=== PATIENT | female | born 1940 | race Caucasian/White ===

== ENCOUNTER → 2017-05-11 | Outpatient (CLI) | payer MEDICARE ==
--- NOTE | 2017-05-12 12:03 | ECHOF ---
Referral Reason:I10 Hypertension R42 Dizziness MEASUREMENTS -------- HEIGHT: 157.5 cm WEIGHT: 93.0 kg BP: 190/85 RVIDd: 2.6 cm (< 3.3) IVSd: 1.1 cm (0.6 - 1.1) LVIDd: 4.4 cm (3.9 - 5.3) LVPWd: 1.0 cm (0.6 - 1.1) IVSs: 1.6 cm LVIDs: 2.8 cm LVPWs: 1.6 cm LAESV Index (A-L): 26.95 ml/m Ao Diam: 2.8 cm (2.0 - 3.7) AV Cusp: 1.6 cm (1.5 - 2.6) LA Diam: 3.4 cm (2.7 - 3.8) MV EXCURSION: 9.957 mm (> 18.000) MV EF SLOPE: 16 mm/s (70 - 150) EPSS: 0.5 cm MV E Dayday: 0.71 m/s MV DecT: 383 ms MV A Dayday: 1.07 m/s MV E/A Ratio: 0.66 RAP: 5.00 mmHg RVSP: 10.82 mmHg FINDINGS -------- Sinus rhythm. This was a technically adequate study. The left ventricular size is normal. There is borderline concentric left ventricular hypertrophy. Overall left ventricular systolic function is normal with, an EF between 55 - 60 %. The right ventricle is normal in size and function. Normal LA size by volume 22+/-6 ml/m2. The right atrium is normal in size. Aortic valve is trileaflet and is mildly thickened. There is no evidence of aortic regurgitation. There is no evidence of aortic stenosis. The mitral valve leaflets are mildly thickened. There is trace to mild mitral regurgitation. Trace tricuspid regurgitation present. Right ventricular systolic pressure is normal at < 35 mmHg. There is no evidence of pulmonary hypertension. The pulmonic valve was not well visualized. The aortic root size is normal. Normal inferior vena cava with normal inspiratory collapse consistent with estimated right atrial pre ssure of 5 mmHg. The pericardium is normal. There is no pericardial effusion. CONCLUSIONS -------- 1. Sinus rhythm. 2. This was a technically adequate study. 3. The left ventricular size is normal. 4. There is borderline concentric left ventricular hypertrophy. 5. Overall left ventricular systolic function is normal with, an EF between 55 - 60 %. 6. Normal LA size by volume 22+/-6 ml/m2. 7. Aortic valve is trileaflet and is mildly thickened. 8. The mitral valve leaflets are mildly thickened. 9. There is trace to mild mitral regurgitation. 10. Trace tricuspid regurgitation present. 11. Right ventricular systolic pressure is normal at < 35 mmHg. 12. There is no evidence of pulmonary hypertension. 13. The pulmonic valve was not well visualized. 14. The aortic root size is normal. 15. There is no pericardial effusion. ENTERPRISE INFRASTRUCTURE ARCHITECT: Donavon Higuera RDCS
== END | disposition home or self-care (01) ==
LOC: RADECHMAIN 14:50
PROVIDERS: ATTEND Family Medicine
DX: I35.8 Other nonrheumatic aortic valve disorders (principal); I10 Essential (primary) hypertension
CPT/HCPCS: 93306

== ENCOUNTER 2024-11-14 16:54 | Observation (INO) | payer MEDICARE ==
--- NOTE | 2024-11-14 17:21 | ED ---
General Adult HPI - General Stated complaint: weakness Time Seen by Provider: 11/14/24 17:00 Source: patient, RN notes reviewed, old records reviewed - History of Present Illness Initial comments: This is an 84-year-old female who presents to the emergency department complaining of weakness. Patient states today she was standing and she slid down to the ground on 2 different occasions. When EMS got there she did not want to come to the hospital but she was unable to stand on her own because her legs were too weak. Patient denies any focal weakness. Patient denies any recent fever chills or cough. Patient states this been happening slowly over time and has talked to her doctor but nothing has been done. Patient denies any chest pain palpitations difficulty breathing or shortness of breath. Patient [place] any headache patient denies any abdominal pain patient denies nausea vomiting or diarrhea - Related Data Home Medications Medication Instructions Recorded Confirmed Aspirin [Adult Low Dose Aspirin EC] 81 mg PO DAILY 09/15/17 10/21/21 Glimepiride [Amaryl] 4 mg PO AC-SUPPER 09/15/17 10/21/21 Insulin Glargine,Hum.rec.anlog 24 units SQ HS 09/15/17 10/21/21 [Lantus Solostar Pen] allopurinoL [Zyloprim] 100 mg PO DAILY 09/15/17 10/21/21 amLODIPine BESYLATE/BENAZEPRIL 1 cap PO DAILY 09/15/17 10/21/21 [amLODIPine BESYLATE/BENAZEPRIL 10-20 MG] Cholecalciferol [Vitamin D3 (25 25 mcg PO DAILY 10/21/21 10/21/21 Mcg = 1000 Iu)] Insulin Aspart [NovoLOG Flexpen] See Protocol SQ AC-TID 10/21/21 10/21/21 Multivitamins, Thera [Multivitamin 1 tab PO DAILY 10/21/21 10/21/21 (formulary)] Nervite Tablet 1 tab PO MOTUTHFRSA 10/21/21 10/21/21 atenoloL [Tenormin] 50 mg PO BID 10/21/21 10/21/21 Previous Rx's Medication Instructions Recorded Apixaban [Eliquis] 5 mg PO BID #60 tab 10/27/21 Allergies Allergy/AdvReac Type Severity Reaction Status Date / Time Zerwjyo-ZZJ-ItS Reductase Allergy Rash/Hives Verified 11/14/24 17:46 Inhibitor [Mktgetb-Rmc-Qdm Reductase Inhibitor] codeine AdvReac Rash/Hives Verified 11/14/24 17:46 metformin AdvReac Abdominal Verified 11/14/24 17:46 Pain Sulfa (Sulfonamide AdvReac Rash/Hives Verified 11/14/24 17:46 Antibiotics) & Nausea Review of Systems ROS Statement: Those systems with pertinent positive or pertinent negative responses have been documented in the HPI. ROS Other: All systems not noted in ROS Statement are negative. Past Medical History Past Medical History: Cancer, Diabetes Mellitus, Hypertension Additional Past Medical History / Comment(s): Degeneration of intervebral disc, peripheral neuropathy. CA Right breat, obesity, [place] History of Any Multi-Drug Resistant Organisms: None Reported Past Surgical History: Hysterectomy Additional Past Surgical History / Comment(s): colonoscpy, cataract, Right brrease mastectomy. D&C Past Anesthesia/Blood Transfusion Reactions: No Reported Reaction Smoking Status: Never smoker Past Alcohol Use History: None Reported Past Drug Use History: None Reported - Past Family History Mother Family Medical History: Cancer, Hypertension Father Family Medical History: Coronary Artery Disease (CAD), Myocardial Infarction ([place]) Brother(s) Family Medical History: Coronary Artery Disease (CAD) General Exam - General Exam Comments Initial Comments: GENERAL: Patient is well-developed and well-nourished. Patient is nontoxic and well- hydrated and is in no acute distress. ENT: Neck is soft and supple. No significant lymphadenopathy is noted. Oropharynx is clear. Moist mucous membranes. Neck has full range of motion without eliciting any pain. EYES: The sclera were anicteric and conjunctiva were pink and moist. Extraocular movements were intact and pupils were equal round and reactive to light. Eyelids were unremarkable. PULMONARY: Unlabored respirations. Good breath sounds bilaterally. No audible rales rhonchi or wheezing was noted. CARDIOVASCULAR: There is a regular rate and rhythm without any murmurs gallops or rubs. ABDOMEN: Soft and nontender with normal bowel sounds. No palpable organomegaly was noted. There is no palpable pulsatile mass. SKIN: Skin is clear with no lesions or rashes and otherwise unremarkable. NEUROLOGIC: Patient is alert and oriented x3. Cranial nerves II through XII are grossly intact. Motor and sensory are also intact. Normal speech, volume and content. Symmetrical smile. MUSCULOSKELETAL: Normal extremities with adequate strength and full range of motion. No lower extremity swelling or edema. No calf tenderness. LYMPHATICS: No significant lymphadenopathy is noted PSYCHIATRIC: Normal psychiatric evaluation. Course Vital Signs 11/14/24 17:32 Temperature 98.0 F Pulse Rate 65 Respiratory 14 Rate Blood Pressure 139/57 O2 Sat by Pulse 97 Oximetry Medical Decision Making - Medical Decision Making EKG is interpreted by myself. EKG shows sinus bradycardia [address] interval is 245 QRS is 107 QT interval is 4 3 QTc is 401. Patient's EKG shows no ST segment elevation or depression. Was pt. sent in by a medical professional or institution (HOLLY Moreno, INTEGRATION ARCHITECT, urgent care, hospital, or fci...) When possible be specific @ -No Did you speak to anyone other than the patient for history (EMS, parent, family, police, friend...)? What history was obtained from this source @ -No Did you review nursing and triage notes (agree or disagree)? Why? @ -I reviewed and agree with nursing and triage notes Were old charts reviewed (outside hosp., previous admission, EMS record, old EKG, old radiological studies, urgent care reports/EKG's, fci records)? Report findings @ -No old charts were reviewed Differential Diagnosis? @ -Differential Weakness: Hypoglycemia, shock, sepsis, hyponatremia, anemia, infection, DC, ETOH, adverse medicine reaction, overdose, stroke, this is not meant to be an all-inclusive list. EKG interpreted by me (3pts min.). @ -As above X-rays interpreted by me (1pt min.). @ -Chest x-ray shows no acute abnormality CT interpreted by me (1pt min.). @ -None done U/S interpreted by me (1pt. min.). @ -None done What testing was considered but not performed or refused? (CT, X-rays, U/S, labs)? Why? @ -None What meds were considered but not given or refused? Why? @ -None Did you discuss the management of the patient with other professionals (professionals i.e. HOLLY Moreno, INTEGRATION ARCHITECT, lab, RT, psych nurse, outreach and education social worker, structural engineer, teacher, airframe technical officer, top case assembler)? Give summary @ -I spoke with [facility] hospitalist and they agreed to admit the patient Was smoking cessation discussed for >3mins.? @ -No Was critical care preformed (if so, how long)? @ -No Were there social determinants of health that impacted care today? How? (Homelessness, low income, unemployed, alcoholism, drug addiction, transportation, low edu. Level, literacy, decrease access to med. care, half-way, rehab)? @ -No Was there de-escalation of care discussed even if they declined (Discuss DNR or withdrawal of care, Hospice)? DNR status @ -No What co-morbidities impacted this encounter? (DM, HTN, Smoking, COPD, CAD, Cancer, CVA, ARF, Chemo, Hep., AIDS, mental health diagnosis, sleep apnea, morbid obesity)? @ -None Was patient admitted / discharged? Hospital course, mention meds given and route, prescriptions, significant lab abnormalities, going to OR and other pertinent info. @ -Patient is unable to stand on her own. This is not her baseline. Patient had 2 falls earlier tonight and family does not feel comfortable taking home because they are afraid she will fall again. Patient is reluctant to stay but will stay. I will admit the patient to [facility] hospitalist. Undiagnosed new problem with uncertain prognosis? @ -No Drug Therapy requiring intensive monitoring for toxicity (Heparin, Nitro, Insulin, Cardizem)? @ -No Were any procedures done? @ -No Diagnosis/symptom? @ -Weakness Acute, or Chronic, or Acute on Chronic? @ -Acute Uncomplicated (without systemic symptoms) or Complicated (systemic symptoms)? @ -Complicated Side effects of treatment? @ -No Exacerbation, Progression, or Severe Exacerbation? @ -No Poses a threat to life or bodily function? How? (Chest pain, [place], DC, pneumonia, PE, COPD, DKA, ARF, appy, cholecystitis, CVA, Diverticulitis, Homicidal, Suicidal, threat to staff... and all critical care pts) @ -Yes this is a concern that the patient might fall because she is already fallen twice today and might further injure herself. Diagnosis/symptom? @ -Multiple falls Acute, or Chronic, or Acute on Chronic? @ -Acute Uncomplicated (without systemic symptoms) or Complicated (systemic symptoms)? @ -Complicated Side effects of treatment? @ -None Exacerbation, Progression, or Severe Exacerbation] @ -No Poses a threat to life or bodily function? @ -No - Lab Data Result diagrams: 11/14/24 17:50 11/14/24 17:50 Lab Results 11/14/24 11/14/24 11/14/24 Range/Units 17:50 17:50 17:50 WBC 9.24 (4.50-10.00) 10*3/uL RBC 4.88 (4.10-5.20) 10*6/uL Hgb 14.8 (12.0-15.0) g/dL Hct 43.9 (37.2-46.3) % MCV 90.0 (80.0-97.0) fL MCH 30.3 (27.0-32.0) pg MCHC 33.7 (32.0-37.0) g/dL Plt Count 413 (140-440) 10*3/uL MPV 9.7 (9.5-12.2) fL Immature Gran % (Auto) 0.9 % Neutrophils % 73.9 % Lymphocytes % 18.0 % Monocytes % 6.7 % Eosinophils % 0.1 % Basophils % 0.4 % Immature Gran # 0.08 H (0.00-0.04) 10*3/uL Neutrophils # 6.83 (1.80-7.70) 10*3/uL Lymphocytes # 1.66 (0.90-5.00) 10*3/uL Monocytes # 0.62 (0.20-1.00) 10*3/uL Eosinophils # 0.01 L (0.04-0.35) 10*3/uL Basophils # 0.04 (0.00-0.10) 10*3/uL PT 11.4 (10.0-12.5) sec INR 1.0 (<1.2) APTT 24.2 (22.0-30.0) sec Sodium 135 L (137-145) mmol/L Potassium 5.0 (3.5-5.1) mmol/L Chloride 103 (98-107) mmol/L Carbon Dioxide 24 (22-30) mmol/L Anion Gap 8 mmol/L BUN 38 H (7-17) mg/dL Creatinine 0.95 (0.52-1.04) mg/dL Est GFR (CKD-EPI)AfAm 63 (>60 ml/min/1.73 sqM) Est GFR (CKD-EPI)NonAf 55 (>60 ml/min/1.73 sqM) Glucose 192 H (74-99) mg/dL Plasma Lactic Acid Tony (0.7-2.0) mmol/L Calcium 10.0 (8.4-10.2) mg/dL Magnesium 1.9 (1.6-2.3) mg/dL Total Bilirubin 1.0 (0.2-1.3) mg/dL AST 53 H (14-36) U/L ALT 68 H (4-34) U/L Alkaline Phosphatase 214 H (38-126) U/L Troponin I (0.000-0.034) ng/mL Total Protein 6.5 (6.3-8.2) g/dL Albumin 3.7 (3.5-5.0) g/dL Urine Color Urine Appearance (Clear) Urine pH (5.0-8.0) Ur Specific [place] (1.001-1.035) Urine Protein (Negative) Urine Glucose (UA) (Negative) Urine Ketones (Negative) Urine Blood (Negative) Urine Nitrite (Negative) Urine Bilirubin (Negative) Urine Urobilinogen (<2.0) mg/dL Ur Leukocyte Esterase (Negative) Urine RBC (0-5) /hpf Urine WBC (0-5) /hpf Ur Squamous Epith Cells (0-4) /hpf Hyaline Casts (0-2) /lpf 11/14/24 11/14/24 11/14/24 Range/Units 17:50 17:50 18:06 WBC (4.50-10.00) 10*3/uL RBC (4.10-5.20) 10*6/uL Hgb (12.0-15.0) g/dL Hct (37.2-46.3) % MCV (80.0-97.0) fL MCH (27.0-32.0) pg MCHC (32.0-37.0) g/dL Plt Count (140-440) 10*3/uL MPV (9.5-12.2) fL Immature Gran % (Auto) % Neutrophils % % Lymphocytes % % Monocytes % % Eosinophils % % Basophils % % Immature Gran # (0.00-0.04) 10*3/uL Neutrophils # (1.80-7.70) 10*3/uL Lymphocytes # (0.90-5.00) 10*3/uL Monocytes # (0.20-1.00) 10*3/uL Eosinophils # (0.04-0.35) 10*3/uL Basophils # (0.00-0.10) 10*3/uL PT (10.0-12.5) sec INR (<1.2) APTT (22.0-30.0) sec Sodium (137-145) mmol/L Potassium (3.5-5.1) mmol/L Chloride (98-107) mmol/L Carbon Dioxide (22-30) mmol/L Anion Gap mmol/L BUN (7-17) mg/dL Creatinine (0.52-1.04) mg/dL Est GFR (CKD-EPI)AfAm (>60 ml/min/1.73 sqM) Est GFR (CKD-EPI)NonAf (>60 ml/min/1.73 sqM) Glucose (74-99) mg/dL Plasma Lactic Acid Tony 1.0 (0.7-2.0) mmol/L Calcium (8.4-10.2) mg/dL Magnesium (1.6-2.3) mg/dL Total Bilirubin (0.2-1.3) mg/dL AST (14-36) U/L ALT (4-34) U/L Alkaline Phosphatase (38-126) U/L Troponin I 0.025 (0.000-0.034) ng/mL Total Protein (6.3-8.2) g/dL Albumin (3.5-5.0) g/dL Urine Color Colorless Urine Appearance Clear (Clear) Urine pH 6.0 (5.0-8.0) Ur Specific [place] 1.013 (1.001-1.035) Urine Protein Trace H (Negative) Urine Glucose (UA) Trace H (Negative) Urine Ketones Negative (Negative) Urine Blood Trace H (Negative) Urine Nitrite Negative (Negative) Urine Bilirubin Negative (Negative) Urine Urobilinogen <2.0 (<2.0) mg/dL Ur Leukocyte Esterase Small H (Negative) Urine RBC <1 (0-5) /hpf Urine WBC 2 (0-5) /hpf Ur Squamous Epith Cells 2 (0-4) /hpf Hyaline Casts 3 H (0-2) /lpf Disposition Clinical Impression: Generalized weakness, Multiple falls Disposition: ADMITTED IP TO THIS HOSP Referrals: Emerson Christensen MD [Primary Care Provider] - 1-2 days Time of Disposition: 19:45
[2024-11-14 18:07] LABS: Partial Thromboplastin Time 24.2 sec (22.0-30.0); Prothrombin Time 11.4 sec (10.0-12.5)
[2024-11-14 18:08] LABS: ALT 68 U/L (4-34); AST 53 U/L (14-36); African American GFR (CKD) 63 (>60 ml/min/1.73 sqM); Albumin 3.7 g/dL (3.5-5.0); Alkaline Phosphatase 214 U/L (38-126); Anion Gap 8 mmol/L; Blood Urea Nitrogen 38 mg/dL (7-17); Carbon Dioxide 24 mmol/L (22-30); Chloride 103 mmol/L (98-107); Glucose 192 mg/dL (74-99); Magnesium 1.9 mg/dL (1.6-2.3); Non-African American GFR(CKD) 55 (>60 ml/min/1.73 sqM); Sodium 135 mmol/L (137-145); Total Protein 6.5 g/dL (6.3-8.2)
[2024-11-14 18:16] LABS: Appearance,Urine Clear (Clear); Bilirubin,Urine Negative (Negative); Blood,Urine Trace (Negative); Color,Urine Colorless; Glucose,Urine (UA) Trace (Negative); Hyaline Casts,Urine 3 /lpf (0-2); Ketones,Urine Negative (Negative); Leukocyte Esterase,Urine Small (Negative); Nitrite,Urine Negative (Negative); Protein,Urine Trace (Negative); RBC,Urine <1 /hpf (0-5); Specific Gravity,Urine 1.013 (1.001-1.035); Squamous Epithelial Cell,Urine 2 /hpf (0-4); Urobilinogen,Urine <2.0 mg/dL (<2.0); WBC,Urine 2 /hpf (0-5)
[2024-11-14 18:21] LABS: Basophils # (A) 0.04 10*3/uL (0.00-0.10); Basophils % (A) 0.4 %; Eosinophils # (A) 0.01 10*3/uL (0.04-0.35); Eosinophils % (A) 0.1 %; HCT 43.9 % (37.2-46.3); HGB 14.8 g/dL (12.0-15.0); Lymphocytes # (A) 1.66 10*3/uL (0.90-5.00); MCH 30.3 pg (27.0-32.0); MCHC 33.7 g/dL (32.0-37.0); Mean Platelet Volume 9.7 fL (9.5-12.2); Monocytes # (A) 0.62 10*3/uL (0.20-1.00); Monocytes % (A) 6.7 %; Neutrophils # (A) 6.83 10*3/uL (1.80-7.70); Neutrophils % (A) 73.9 %; Platelet Count 413 10*3/uL (140-440); RBC 4.88 10*6/uL (4.10-5.20); RDW 13.4 % (11.5-14.5); WBC 9.24 10*3/uL (4.50-10.00)
--- NOTE | 2024-11-14 18:58 | XR ---
EXAMINATION TYPE: XR chest 2V DATE OF EXAM: 11/14/2024 6:18 PM COMPARISON: 10/21/2021 CLINICAL INDICATION: Female, 84 years old with history of Weakness, TECHNIQUE: XR chest 2V view(s) obtained. FINDINGS: The heart size is normal. The pulmonary vasculature is normal. The lungs are clear. IMPRESSION: 1. No acute pulmonary process. [facility], , 11/14/2024 6:55 PM
[2024-11-14] MEDS: SODIUM CHLORIDE 0.9% 500 ML 500 ML IV ONE (20:19)
[2024-11-14] MEDS: SODIUM CHLORIDE 0.9% 1,000 ML IV ONE (21:27)
[2024-11-15] MEDS: APIXABAN 5 MG TAB PO SCH (08:27)
[2024-11-15] MEDS: SERTRALINE 25 MG TAB PO SCH (08:28)
[2024-11-15] MEDS: atenoloL 50 MG TAB PO SCH (08:28)
[2024-11-15] MEDS: NYSTATIN 100,000 UNIT/GM POWD 15 GM TOPICAL SCH (08:29)
[2024-11-15 11:47] LABS: Glucose,Whole Blood 144 mg/dL (70-110)
[2024-11-15] MEDS: amLODIPine 10 MG TAB PO SCH (12:17)
[2024-11-15 16:41] LABS: Glucose,Whole Blood 353 mg/dL (70-110)
[2024-11-15] MEDS: INSULIN LISPRO (HumaLOG) 100 UNIT/ML 10 mL VL SQ SCH (17:05)
[2024-11-15 20:33] VITALS: RESP 17
[2024-11-15 21:10] LABS: Glucose,Whole Blood 350 mg/dL (70-110)
[2024-11-15] MEDS: INSULIN GLARGINE (LANTUS) 100 UNIT/ML SYR SQ SCH (21:42)
[2024-11-15] MEDS: ASPIRIN 81 MG PO SCH (21:43)
[2024-11-15] MEDS ORDERED: ACETAMINOPHEN TAB 325 MG TAB PO PRN (22:31)
[2024-11-16 06:22] LABS: Glucose,Whole Blood 93 mg/dL (70-110)
--- NOTE | 2024-11-16 06:39 | P.HPIM ---
History of Present Illness H&P Date: 11/15/24 This is a pleasant 84-year-old female who presented to the emergency department with generalized weakness with falls and becoming progressively more weak. Patient follows with Dr. Christensen in the outpatient setting with a past medical history of breast cancer, hypertension, A-fib, hyperlipidemia, syncopal episodes, diabetes mellitus, CVA, atrial fibrillation, degenerative disc disease with peripheral neuropathy, hard of hearing. Patient denies any drinking, tobacco, or illicit drug use. X-ray was performed showing no acute process. Labs reviewed reveal a white count of 9.24, hemoglobin 14.8, platelets 413, sodium 135, potassium 5.0, lactic acid 1.0, magnesium 1.9, AST 53, ALT 68, alk phos, troponin 0.025 this time showing no acute infection. Patient is being admitted for generalized weakness and falls for PT/OT therapy evaluation. Patient currently resides at [facility] independently. REVIEW OF SYSTEMS: CONSTITUTIONAL: No fever, no malaise, no fatigue. HEENT: No recent visual problems or hearing problems. Denied any sore throat. CARDIOVASCULAR: No chest pain, orthopnea, PND, no palpitations, no syncope. PULMONARY: No shortness of breath, no cough, no hemoptysis. GASTROINTESTINAL: No diarrhea, no nausea, no vomiting, no abdominal pain. NEUROLOGICAL: No headaches, reports of generalized weakness and more recurrent falls, no numbness. HEMATOLOGICAL: Denies any bleeding or petechiae. GENITOURINARY: Denies any burning micturition, frequency, or urgency. MUSCULOSKELETAL/RHEUMATOLOGICAL: Denies any joint pain, swelling, or any muscle pain. ENDOCRINE: Denies any polyuria or polydipsia. The rest of the 14-point review of systems is negative. PHYSICAL EXAMINATION: GENERAL: The patient is alert and oriented x2-3, not in any acute distress. Well developed,, obese HEENT: Pupils are round and equally reacting to light. EOMI. No scleral icterus. No conjunctival pallor. Normocephalic, atraumatic. No pharyngeal erythema. No thyromegaly. CARDIOVASCULAR: S1 and S2 muffled PULMONARY: Diminished breath sounds bilaterally otherwise chest is clear to aus cultation, no wheezing or crackles. ABDOMEN: Soft, obese, nontender, nondistended, normoactive bowel sounds. No palpable organomegaly. MUSCULOSKELETAL: No joint swelling or deformity. EXTREMITIES: No cyanosis, clubbing, or pedal edema. NEUROLOGICAL: Gross neurological examination did not reveal any focal deficits. Diffusely weak SKIN: No rashes. Assessment: Generalized weakness with gait dysfunction Hypertension history Atrial fibrillation History of CVA History of degenerative disc disease with peripheral neuropathy Diabetes mellitus, type II uncontrolled with hyperglycemia History of hyperlipidemia History of breast cancer on the right Obesity with a BMI of 36.6 GI prophylaxis DVT prophylaxis No code Plan: Patient was admitted with generalized weakness and falls and will have PT/OT therapy evaluate the patient Home medications reviewed and resumed as appropriate Per nursing staff, urine was foul-smelling although patient is denying any pain or burning or frequency at this time with urine, urinalysis sent and pending, likely asymptomatic bacteriuria Recommend Accu-Cheks AC and at bedtime with sliding scale and will adjust insulins accordingly Follow-up on repeat labs in the a.m. Case management consulted in the event patient may require ECF on discharge. Patient was at [facility] at this time independently and would like to return there. The impression and plan of care has been dictated by Jeanette Serrano, Nurse Practitioner as directed. Dr. Reg MD I have performed a history and examination and MDM of this patient, discussed the same with the dictator, and agree with the dictator's assessment and plan as written ,documented as a scribe. Based on total visit time, I have performed more than 50% of the visit. Past Medical History Past Medical History: Atrial Fibrillation, Cancer, CVA/TIA, Diabetes Mellitus, Hyperlipidemia, Hypertension, Syncope Additional Past Medical History / Comment(s): Degeneration of intervebral disc, peripheral neuropathy. CA Right breat, obesity, [place] History of Any Multi-Drug Resistant Organisms: None Reported Past Surgical History: Hysterectomy Additional Past Surgical History / Comment(s): colonoscpy, cataract, Right brrease mastectomy. D&C Past Anesthesia/Blood Transfusion Reactions: No Reported Reaction Past Psychological History: No Psychological Hx Reported Smoking Status: Never smoker Past Alcohol Use History: None Reported Past Drug Use History: None Reported - Past Family History Mother Family Medical History: Cancer, Hypertension Father Family Medical History: Coronary Artery Disease (CAD), Myocardial Infarction ([place]) Brother(s) Family Medical History: Coronary Artery Disease (CAD) Medications and Allergies Home Medications Medication Instructions Recorded Confirmed Type Aspirin [Adult Low Dose Aspirin EC] 81 mg PO HS 09/15/17 11/14/24 History Insulin Glargine,Hum.rec.anlog 28 - 32 units SQ HS 09/15/17 11/14/24 History [Lantus Solostar Pen] atenoloL [Tenormin] 50 mg PO BID 10/21/21 11/14/24 History Apixaban [Eliquis] 5 mg PO BID #60 tab 10/27/21 11/14/24 Rx Sertraline [Zoloft] 25 mg PO DAILY 11/14/24 11/14/24 History Torsemide [Demadex] 5 mg PO DAILY@1200 11/14/24 11/14/24 History amLODIPine [Norvasc] 10 mg PO DAILY@1200 11/14/24 11/14/24 History lisinopriL [Zestril] 10 mg PO DAILY@1200 11/14/24 11/14/24 History Allergies Allergy/AdvReac Type Severity Reaction Status Date / Time Dzjmswv-PPG-HrH Reductase Allergy Rash/Hives Verified 11/14/24 20:12 Inhibitor [Xldhqra-Yya-Rmq Reductase Inhibitor] codeine AdvReac Rash/Hives Verified 11/14/24 20:12 metformin AdvReac Abdominal Verified 11/14/24 20:12 Pain Sulfa (Sulfonamide AdvReac Rash/Hives Verified 11/14/24 20:12 Antibiotics) & Nausea Physical Exam Vitals: Vital Signs Temp Pulse Pulse Resp BP BP Pulse Ox 11/15/24 07:36 98.7 F 60 18 138/55 96 11/15/24 01:01 98.8 F 62 18 140/68 97 11/14/24 22:37 98.1 F 62 19 137/73 97 11/14/24 22:03 97.9 F 63 18 129/43 97 11/14/24 17:32 98.0 F 65 14 139/57 97 Intake and Output 11/14/24 11/15/24 11/15/24 22:59 06:59 14:59 Other: Voiding Method Toilet # Voids 2 Weight 90.718 kg Results CBC & Chem 7: 11/14/24 17:50 11/14/24 17:50 Labs: Abnormal Lab Results - Last 24 Hours (Table) 11/14/24 11/14/24 11/14/24 Range/Units 17:50 17:50 18:06 Immature Gran # 0.08 H (0.00-0.04) 10*3/uL Eosinophils # 0.01 L (0.04-0.35) 10*3/uL Sodium 135 L (137-145) mmol/L BUN 38 H (7-17) mg/dL Glucose 192 H (74-99) mg/dL AST 53 H (14-36) U/L ALT 68 H (4-34) U/L Alkaline Phosphatase 214 H (38-126) U/L Urine Protein Trace H (Negative) Urine Glucose (UA) Trace H (Negative) Urine Blood Trace H (Negative) Ur Leukocyte Esterase Small H (Negative) Hyaline Casts 3 H (0-2) /lpf Thrombosis Risk Factor Assmnt - Choose All That Apply Any of the Below Risk Factors Present?: Yes Each Factor Represents 1 point: Obesity (BMI >25) Other Risk Factors: Yes Each Risk Factor Represents 3 Points: Age 75 years or older Other congenital or acquired thrombophilia - If yes, enter type in comment: No Thrombosis Risk Factor Assessment Total Risk Factor Score: 4 Thrombosis Risk Factor Assessment Level: Moderate Risk
[2024-11-16] MEDS: PANTOPRAZOLE 40 MG TABLET PO SCH (06:56)
[2024-11-16 08:27] VITALS: TEMP 97.7
[2024-11-16 10:26] LABS: ALT 48 U/L (8-44); AST 41 U/L (13-35); Albumin 3.1 g/dL (3.8-4.9); Albumin/Globulin Ratio 1.55 Ratio (1.60-3.17); Alkaline Phosphatase 166 U/L (41-126); Blood Urea Nitrogen 32.9 mg/dL (9.0-27.0); Calcium 9.1 mg/dL (8.7-10.3); Chloride 103 mmol/L (96-109); Glucose 100 mg/dL (70-110); Potassium 4.5 mmol/L (3.5-5.5); Sodium 136 mmol/L (135-145); Total Bilirubin 0.9 mg/dL (0.3-1.2); Total Protein 5.1 g/dL (6.2-8.2)
[2024-11-16 11:31] LABS: Glucose,Whole Blood 201 mg/dL (70-110)
[2024-11-16 15:03] VITALS: BP 117/70; PULSE 58
--- NOTE | 2024-11-16 15:11 | P.DS ---
Providers Date of admission: 11/14/24 19:51 Expected date of discharge: 11/16/24 Attending physician: Rosey Villareal Primary care physician: Emerson Christensen Hospital Course: Final diagnosis Generalized weakness with gait dysfunction and recurrent falls Hypertension history Atrial fibrillation history, currently rate controlled History of CVA History of degenerative disc disease with peripheral neuropathy Diabetes mellitus, type II uncontrolled with hyperglycemia History of hyperlipidemia History of breast cancer on the right Obesity with a BMI of 36.6 GI prophylaxis DVT prophylaxis No code Discharge disposition Patient is being discharged in a stable condition with guarded prognosis to [facility]. Patient will follow-up with Dr. Christensen in the outpatient setting upon discharge. Patient is to continue with current medications as scheduled. Total time taken is greater than 35 minutes. Hospital course This is a 84-year-old female who was recently admitted with generalized weakness and recurrent falls progressively becoming more weak over the last few days. Patient was evaluated by physical therapy recommending rehab and patient is agreeable. Patient is a diabetic recommend to continue monitoring Accu-Cheks AC and at bedtime and continue with current regimen including sliding scale and long-acting adjust as needed. Patient reports to feeling improved and will be discharged to [facility] today. Patient has been accepted and insurance authorization has been obtained. Currently no reports of chest pain, shortness of breath, or palpitations. Patient is afebrile. No reports of nausea or vomiting and patient is tolerating diet. Patient will be going to [facility] today. Physical exam: Gen: This is a 84-year-old female who is awake, alert and oriented x 2-3, baseline, hard of hearing, well-developed, elderly appearing, obese HEENT: Head is atraumatic, normocephalic. Pupils equal, round. Sclerae is anicteric. NECK: Supple. No JVD. No lymphadenopathy. No thyromegaly. LUNGS: Diminished breath sounds bilaterally otherwise clear to auscultation. No wheezes or rhonchi. No intercostal retractions. HEART: S1, S2 are muffled ABDOMEN: Soft. Obese bowel sounds are present. No masses. No tenderness. EXTREMITIES: No pedal edema. No calf tenderness. NEUROLOGICAL: Patient is awake, alert and oriented x2-3. Cranial nerves 2 through 12 are grossly intact. Diffusely weak Please refer to medication reconciliation sheet for a list of medications. The impression and plan of care has been dictated by Jeanette Serrano, Nurse Practitioner as directed. Dr. Taylor MD I have performed a history and examination and MDM of this patient, discussed the same with the dictator, and agree with the dictator's assessment and plan as written ,documented as a scribe. Based on total visit time, I have performed more than 50% of the visit. Patient Condition at Discharge: Stable Plan - Discharge Summary Discharge Rx Participant: No New Discharge Prescriptions: New INSULIN LISPRO (HumaLOG) [HumaLOG] 0 unit SQ ACHS each Insulin Glargine (Lantus) [Lantus Vial] 20 unit SQ HS each Pantoprazole [Protonix] 40 mg PO AC-BRKFST tab Acetaminophen Tab [Tylenol] 650 mg PO Q6HR PRN tab PRN Reason: Mild Pain Or Fever > 100.5 Nystatin 100,000 Unit/gm Powd [Mycostatin Powder] 1 applic TOPICAL BID each Continue Aspirin [Adult Low Dose Aspirin EC] 81 mg PO HS atenoloL [Tenormin] 50 mg PO BID Apixaban [Eliquis] 5 mg PO BID #60 tab amLODIPine [Norvasc] 10 mg PO DAILY@1200 Sertraline [Zoloft] 25 mg PO DAILY Torsemide [Demadex] 5 mg PO DAILY@1200 lisinopriL [Zestril] 10 mg PO DAILY@1200 Discontinued Insulin Glargine,Hum.rec.anlog [Lantus Solostar Pen] 28 - 32 units SQ HS Discharge Medication List Aspirin [Adult Low Dose Aspirin EC] 81 mg PO HS 09/15/17 [History] atenoloL [Tenormin] 50 mg PO BID 10/21/21 [History] Apixaban [Eliquis] 5 mg PO BID #60 tab 10/27/21 [Rx] Sertraline [Zoloft] 25 mg PO DAILY 11/14/24 [History] Torsemide [Demadex] 5 mg PO DAILY@1200 11/14/24 [History] amLODIPine [Norvasc] 10 mg PO DAILY@1200 11/14/24 [History] lisinopriL [Zestril] 10 mg PO DAILY@1200 11/14/24 [History] Acetaminophen Tab [Tylenol] 650 mg PO Q6HR PRN tab 11/16/24 [Rx] INSULIN LISPRO (HumaLOG) [HumaLOG] 0 unit SQ ACHS each 11/16/24 [Rx] Insulin Glargine (Lantus) [Lantus Vial] 20 unit SQ HS each 11/16/24 [Rx] Nystatin 100,000 Unit/gm Powd [Mycostatin Powder] 1 applic TOPICAL BID each 11/16/24 [Rx] Pantoprazole [Protonix] 40 mg PO AC-BRKFST tab 11/16/24 [Rx] Follow up Appointment(s)/Referral(s): Emerson Christensen MD [Primary Care Provider] - 1-2 days Activity/Diet/Wound Care/Special Instructions: Patient is going to [facility] Activity as tolerated Follow-up primary care provider on discharge Continue taking medications as prescribed Continue diabetic diet and monitoring Accu-Cheks AC and at bedtime NovoLog sliding scale 0-150 equals 0 units 151-200 equals 2 units 201-250 equals 4 units 251-300 equals 6 units 301-350 equals 8 units 351-400 equals 10 units Please notify provider if blood sugar is 400 or above Continue consistent carb heart healthy diet Discharge Disposition: TRANSFER TO SNF/ECF
== END 2024-11-16 16:12 ==
LOC: EC 16:54 → 4SSUR 19:51
PROVIDERS: ADMIT Hospitalist; ATTEND Hospitalist
DX: R53.1 Weakness (principal); R26.9 Unspecified abnormalities of gait and mobility; R29.6 Repeated falls; E11.65 Type 2 diabetes mellitus with hyperglycemia; E11.42 Type 2 diabetes mellitus with diabetic polyneuropathy; I10 Essential (primary) hypertension; I48.91 Unspecified atrial fibrillation; E78.5 Hyperlipidemia, unspecified; E66.9 Obesity, unspecified; Z86.73 Personal history of transient ischemic attack (TIA), and cerebral infarction without residual deficits; Z85.3 Personal history of malignant neoplasm of breast; Z68.36 Body mass index [BMI] 36.0-36.9, adult; Z79.01 Long term (current) use of anticoagulants; Z79.82 Long term (current) use of aspirin; Z79.84 Long term (current) use of oral hypoglycemic drugs; Z79.899 Other long term (current) drug therapy; Z79.4 Long term (current) use of insulin; Z88.8 Allergy status to other drugs, medicaments and biological substances; Z88.5 Allergy status to narcotic agent; Z88.2 Allergy status to sulfonamides
CPT/HCPCS: 96360; 99285; 36415; 93005; 97162; 97166; 80053 ×2; 83605; 83735; 84484; 85025; 85610; 85730; 81001; 71046; G0378 ×3

== ENCOUNTER 2024-12-01 20:05 | Inpatient (IN) | payer MEDICARE ==
--- NOTE | 2024-12-01 21:02 | ED ---
General Adult HPI - General Chief complaint: Skin/Abscess/Foreign Body Stated complaint: Left shoulder pain Time Seen by Provider: 12/01/24 20:54 Source: patient, EMS, RN notes reviewed Mode of arrival: EMS - History of Present Illness Initial comments: 84-year-old female sent from [facility] for increased bruising on left side. Patient is a poor historian and says she fell last week but is unsure how. She cannot specifically remember any falls or injuries. She is complaining of left shoulder pain however is unsure when this started. Denies chest pain, shortness of breath, abdominal pain, headache, vision changes. She is on thinners. She was recently admitted approximately 2 weeks ago for weakness and multiple falls at which time she was placed at [facility]. Patient has a history remarkable for atrial fibrillation, CVA, diabetes mellitus, hypertension, hyperlipidemia. - Related Data Home Medications Medication Instructions Recorded Confirmed Aspirin [Adult Low Dose Aspirin EC] 81 mg PO HS 09/15/17 11/14/24 atenoloL [Tenormin] 50 mg PO BID 10/21/21 11/14/24 Sertraline [Zoloft] 25 mg PO DAILY 11/14/24 11/14/24 Torsemide [Demadex] 5 mg PO DAILY@1200 11/14/24 11/14/24 amLODIPine [Norvasc] 10 mg PO DAILY@1200 11/14/24 11/14/24 lisinopriL [Zestril] 10 mg PO DAILY@1200 11/14/24 11/14/24 Previous Rx's Medication Instructions Recorded Apixaban [Eliquis] 5 mg PO BID #60 tab 10/27/21 Acetaminophen Tab [Tylenol] 650 mg PO Q6HR PRN tab 11/16/24 INSULIN LISPRO (HumaLOG) [HumaLOG] 0 unit SQ ACHS each 11/16/24 Insulin Glargine (Lantus) [Lantus 20 unit SQ HS each 11/16/24 Vial] Nystatin 100,000 Unit/gm Powd 1 applic TOPICAL BID each 11/16/24 [Mycostatin Powder] Pantoprazole [Protonix] 40 mg PO AC-BRKFST tab 11/16/24 Allergies Allergy/AdvReac Type Severity Reaction Status Date / Time Tdgdefq-ONN-WpJ Reductase Allergy Rash/Hives Verified 11/14/24 20:12 Inhibitor [Hipskky-Mee-Dvl Reductase Inhibitor] codeine AdvReac Rash/Hives Verified 11/14/24 20:12 metformin AdvReac Abdominal Verified 11/14/24 20:12 Pain Sulfa (Sulfonamide AdvReac Rash/Hives Verified 11/14/24 20:12 Antibiotics) & Nausea Review of Systems ROS Statement: Those systems with pertinent positive or pertinent negative responses have been documented in the HPI. ROS Other: All systems not noted in ROS Statement are negative. Past Medical History Past Medical History: Atrial Fibrillation, Cancer, CVA/TIA, Diabetes Mellitus, Hyperlipidemia, Hypertension, Syncope Additional Past Medical History / Comment(s): Degeneration of intervebral disc, peripheral neuropathy. CA Right breat, obesity, [place] History of Any Multi-Drug Resistant Organisms: None Reported Past Surgical History: Hysterectomy Additional Past Surgical History / Comment(s): colonoscpy, cataract, Right brrease mastectomy. D&C Past Anesthesia/Blood Transfusion Reactions: No Reported Reaction Past Psychological History: No Psychological Hx Reported Smoking Status: Never smoker Past Alcohol Use History: None Reported Past Drug Use History: None Reported - Past Family History Mother Family Medical History: Cancer, Hypertension Father Family Medical History: Coronary Artery Disease (CAD), Myocardial Infarction ([place]) Brother(s) Family Medical History: Coronary Artery Disease (CAD) General Exam General appearance: alert, in no apparent distress Head exam: Present: atraumatic, normocephalic, normal inspection Eye exam: Present: normal appearance, PERRL, EOMI. Absent: scleral icterus, conjunctival injection, periorbital swelling ENT exam: Present: normal exam, mucous membranes moist Neck exam: Present: normal inspection. Absent: tenderness, meningismus, lymphadenopathy Respiratory exam: Present: normal lung sounds bilaterally. Absent: respiratory distress, wheezes, rales, rhonchi, stridor Cardiovascular Exam: Present: normal rhythm, bradycardia, normal heart sounds. Absent: systolic murmur, diastolic murmur, rubs, gallop, clicks GI/Abdominal exam: Present: soft, normal bowel sounds. Absent: distended, tenderness, guarding, rebound, rigid Left Shoulder Exam: Present: full ROM (Pain with range of motion), tenderness. Absent: normal inspection (Large amount of bruising present along the left shoulder), swelling, abrasion, laceration Upper Arm exam: Present: normal inspection, full ROM. Absent: tenderness, swelling Elbow exam: Present: normal inspection, full ROM. Absent: tenderness, swelling Forearm Wrist exam: Present: normal inspection, full ROM. Absent: tenderness, swelling Hand Wrist exam: Present: normal inspection, full ROM. Absent: tenderness, swelling Vascular: Present: normal capillary refill, radial pulse. Absent: vascular compromise Neurological exam: Present: alert, oriented X3 Psychiatric exam: Present: normal affect, normal mood Skin exam: Present: warm, dry, intact, normal color, other (Patient has deep purple/red contusions present across left shoulder extending to left flank) Course Vital Signs 12/01/24 12/01/24 12/01/24 20:16 23:05 23:09 Temperature 97.5 F L Pulse Rate 46 L 43 L 36 L Respiratory 18 18 10 L Rate Blood Pressure 129/82 138/71 99/77 O2 Sat by Pulse 96 100 95 Oximetry 12/01/24 23:13 Temperature Pulse Rate 34 L Respiratory 18 Rate Blood Pressure 92/59 O2 Sat by Pulse 94 L Oximetry EKG Findings - EKG Results: EKG: interpreted by HUMBERTO (EKG remarkable for sinus bradycardia with first-degree AV block, no significant changes from previous EKGs. Ventricular rate 44 bpm, IA interval 244, QRS duration 103, QT/QTc 450/399) Procedures - Orthopedic Joint Reduction Joint #1 Consent Obtained: verbal consent Side: left Joint Reduction Location: shoulder Analgesia: procedural sedation Shoulder Technique Used (if applicable): traction/counter-traction, external rotation Post-Reduction Neuro Exam: intact Post-Reduction Vascular Exam: intact Post Reduction X-Ray Obtained: Yes (Improved anatomical alignment) Post Reduction X-Ray Results: reduced Splint Applied: Yes (Sling) Patient Tolerated Procedure: well, no complications Medical Decision Making - Medical Decision Making Was pt. sent in by a medical professional or institution (, PA, PHARMACEUTICAL PROCESS ENGINEER, urgent care, hospital, or care home...) When possible be specific @ -Sent by [facility] for left-sided bruising Did you speak to anyone other than the patient for history (EMS, parent, family, police, friend...)? What history was obtained from this source @ -No Did you review nursing and triage notes (agree or disagree)? Why? @ -I reviewed and agree with nursing and triage notes Were old charts reviewed (outside hosp., previous admission, EMS record, old EKG, old radiological studies, urgent care reports/EKG's, care home records)? Report findings @ -No old charts were reviewed Differential Diagnosis (chest pain, altered mental status, abdominal pain women, abdominal pain men, vaginal bleeding, weakness, fever, dyspnea, syncope, headache, dizziness, GI bleed, back pain, seizure, CVA, palpatations, mental health, musculoskeletal)? @ -Differential Musculoskeletal Muscular strain, contusion, ligament sprain, fracture, arthritis, septic arthritis, bursitis, cellulitis, muscle spasm, nerve compression, DVT, arterial occlusion, herpes zoster, electrolyte abnormality, tumor.... This is not meant to be in all inclusive list EKG interpreted by me (3pts min.). @ -As above X-rays interpreted by me (1pt min.). @ -Left shoulder x-ray reveals questionable anterior dislocation of humeral head relative to glenoid, repeat postreduction x-ray reveals improved anatomical alignment CT interpreted by me (1pt min.). @ -CT brain and C-spine reveals no acute process, CT chest, abdomen, pelvis reveals cardiomegaly and bilateral pleural effusions otherwise no acute trauma tic process U/S interpreted by me (1pt. min.). @ -None done What testing was considered but not performed or refused? (CT, X-rays, U/S, labs)? Why? @ -None What meds were considered but not given or refused? Why? @ -None Did you discuss the management of the patient with other professionals (rosa castano i.aurelio Moreno, PA, PHARMACEUTICAL PROCESS ENGINEER, lab, RT, psych nurse, older adult social work specialist, monitoring engineer, teacher, life science technical officer, pillowcase cutter)? Give summary @ -No Was smoking cessation discussed for >3mins.? @ -No Was critical care preformed (if so, how long)? @ -No Were there social determinants of health that impacted care today? How? (Homelessness, low income, unemployed, alcoholism, drug addiction, transportation, low edu. Level, literacy, decrease access to med. care, snf, rehab)? @ -No Was there de-escalation of care discussed even if they declined (Discuss DNR or withdrawal of care, Hospice)? DNR status @ -No What co-morbidities impacted this encounter? (DM, HTN, Smoking, COPD, CAD, Cancer, CVA, ARF, Chemo, Hep., AIDS, mental health diagnosis, sleep apnea, morbid obesity)? @ -None Was patient admitted / discharged? Hospital course, mention meds given and route, prescriptions, significant lab abnormalities, going to OR and other pertinent info. @Admitted. This is an 84-year-old female sent from [facility] for left-sided bruising. Patient is endorsing left shoulder pain however is unsure when or how she fell. She is on thinners. She was recently admitted for weakness and multiple falls. Heart rate is found to be in the 40s however patient is asymptomatic. Blood pressure 129/82. On physical examination there is diffuse left-sided bruising. Neurovascularly intact to all extremities. Left shoulder x-ray reveals questionable anterior dislocation of the humeral head relative the glenoid. CT chest/abdomen/pelvis reveals no acute traumatic process. CT brain and C-spine reveals no acute process. Conscious sedation performed with my ED attending Dr. Carrasco, postreduction x-rays revealed improved anatomical alignment. Patient was placed in a sling. Patient will be admitted to medicine for bradycardia with cardiology consult. Case was discussed with my ED attending Dr. Carrasco. Undiagnosed new problem with uncertain prognosis? @ -No Drug Therapy requiring intensive monitoring for toxicity (Heparin, Nitro, Insulin, Cardizem)? @ -No Were any procedures done? @ -Yes, conscious sedation for left shoulder reduction Diagnosis/symptom? @ -Left shoulder dislocation, bradycardia Acute, or Chronic, or Acute on Chronic? @ -Acute Uncomplicated (without systemic symptoms) or Complicated (systemic symptoms)? @ -Uncomplicated Side effects of treatment? @ -No Exacerbation, Progression, or Severe Exacerbation? @ -No Poses a threat to life or bodily function? How? (Chest pain, [place], [place], pneumonia, PE, COPD, DKA, ARF, appy, cholecystitis, CVA, Diverticulitis, Homicidal, Suicidal, threat to staff... and all critical care pts) @ -Possibly - Lab Data Result diagrams: 12/01/24 22:30 Lab Results 12/01/24 Range/Units 22:30 WBC 7.51 (4.50-10.00) 10*3/uL RBC 4.01 L (4.10-5.20) 10*6/uL Hgb 12.5 (12.0-15.0) g/dL Hct 36.8 L (37.2-46.3) % MCV 91.8 (80.0-97.0) fL MCH 31.2 (27.0-32.0) pg MCHC 34.0 (32.0-37.0) g/dL Plt Count 289 (140-440) 10*3/uL MPV 11.0 (9.5-12.2) fL Immature Gran % (Auto) 1.1 % Neutrophils % 51.5 % Lymphocytes % 32.8 % Monocytes % 10.9 % Eosinophils % 2.9 % Basophils % 0.8 % Immature Gran # 0.08 H (0.00-0.04) 10*3/uL Neutrophils # 3.87 (1.80-7.70) 10*3/uL Lymphocytes # 2.46 (0.90-5.00) 10*3/uL Monocytes # 0.82 (0.20-1.00) 10*3/uL Eosinophils # 0.22 (0.04-0.35) 10*3/uL Basophils # 0.06 (0.00-0.10) 10*3/uL Disposition Clinical Impression: Bradycardia, Dislocation of left shoulder joint Disposition: ADMITTED IP TO THIS HOSP Referrals: Emerson Christensen MD [Primary Care Provider] - 1-2 days Time of Disposition: 23:22
--- NOTE | 2024-12-01 21:40 | XR ---
EXAMINATION TYPE: XR shoulder complete LT DATE OF EXAM: 12/01/2024 9:14 PM COMPARISON: None available. CLINICAL INDICATION: Female, 84 years old with history of left shoulder injury; PHH, pain TECHNIQUE: XR shoulder complete LT; examined in AP, internally rotated and scapular Y projections. FINDINGS: Exam severely limited due to patient positioning. Questionable anterior dislocation of the left humer al head relative to glenoid seen on single oblique view. Moderate degenerative osteophytic changes of the acromioclavicular joint. However, humeral head appears appropriately aligned on scapular Y view. Humerus appears intact. IMPRESSION: Questionable anterior dislocation of the humeral head relative to glenoid, severely limited in evalua tion due to patient positioning/suboptimal technique. Repeat left shoulder radiograph for further daniela luation with CT shoulder could be obtained if clinically warranted. [facility], , 12/01/2024 9:38 PM
[2024-12-01 22:40] LABS: Basophils # (A) 0.06 10*3/uL (0.00-0.10); Basophils % (A) 0.8 %; Eosinophils # (A) 0.22 10*3/uL (0.04-0.35); Eosinophils % (A) 2.9 %; HCT 36.8 % (37.2-46.3); HGB 12.5 g/dL (12.0-15.0); Lymphocytes # (A) 2.46 10*3/uL (0.90-5.00); Lymphocytes % (A) 32.8 %; MCH 31.2 pg (27.0-32.0); MCHC 34.0 g/dL (32.0-37.0); MCV 91.8 fL (80.0-97.0); Monocytes # (A) 0.82 10*3/uL (0.20-1.00); Monocytes % (A) 10.9 %; Neutrophils # (A) 3.87 10*3/uL (1.80-7.70); Neutrophils % (A) 51.5 %; Platelet Count 289 10*3/uL (140-440); RBC 4.01 10*6/uL (4.10-5.20); RDW 13.8 % (11.5-14.5); WBC 7.51 10*3/uL (4.50-10.00)
--- NOTE | 2024-12-01 22:56 | CT ---
EXAMINATION TYPE: CT ChestAbdPelvis wo con DATE OF EXAM: 12/01/2024 9:38 PM COMPARISON: None available. CLINICAL INDICATION: Female, 84 years old with history of left sided bruising, hx multiple falls; PHH , Brought in from [facility] for increased bruising on her left side. Pt states that she thinks she fell last week but is not sure how the date, (+) thinners. Complains of Lt. shoulder pain. HR running low - currently 40s, normally in 60s. Poor historian. Technique: CT ChestAbdPelvis wo con; Multiple axial images were obtained. Two-dimensional coronal and sagittal reconstructions were obtained. CT DLP: 1532.8 mGycm, Automated exposure control for dose reduction was used. Findings: CHEST: LUNGS/ PLEURA: Small bilateral pleural effusions. No pneumothorax. No acute focal consolidation. Bila teral lower lobe compressive atelectasis. AIRWAY: Patent and unremarkable. HEART: Mild cardiomegaly. Coronary artery calcifications. MEDIASTINUM: No gross evidence of adenopathy. VASCULATURE: No aortic aneurysm. MUSCULOSKELETAL: No acute osseous abnormalities. Multilevel thoracic or lumbar spine degenerative yuly nges. SOFT TISSUES/LYMPH NODES: Unremarkable. LOWER NECK: No significant findings. ABDOMEN: ABDOMEN LIVER: Unremarkable. GALLBLADDER AND BILE DUCTS: Unremarkable. PANCREAS: Unremarkable. SPLEEN: Unremarkable. ADRENAL GLANDS: Unremarkable. KIDNEYS AND URETERS: No evidence of hydronephrosis or renal calculus. The ureters are unremarkable. PELVIS BLADDER: Unremarkable REPRODUCTIVE: Unremarkable. ABDOMEN & PELVIS STOMACH AND BOWEL: Stomach and duodenum are unremarkable. No evidence of bowel obstruction. Colonic d iverticulosis without evidence for PERITONEUM/RETROPERITONEUM: No evidence of pneumoperitoneum or free fluid. VASCULATURE: No evidence of aortic aneurysm. MUSCULOSKELETAL: No acute osseous abnormalities LYMPH NODES: No gross evidence for lymphadenopathy. SOFT TISSUE/ABDOMINAL WALL: Unremarkable IMPRESSION: 1. Cardiomegaly and small bilateral pleural effusions. 2. No acute traumatic abnormality in the chest/abdomen/pelvis. [facility], , 12/01/2024 10:53 PM
[2024-12-01] MEDS: PROPOFOL 10 MG/ML 20 ML VIAL IV ONE ×2 (23:08→23:11)
--- NOTE | 2024-12-01 23:13 | CT ---
EXAMINATION TYPE: CT brain cspine wo con DATE OF EXAM: 12/01/2024 9:38 PM COMPARISON: CT study dated 10/21/2021. CLINICAL INDICATION: Female, 84 years old with history of pain; Brought in from [facility] for increased bruising on her left side. Pt states that she thinks she fell last week but is not sure how the date , (+) thinners. Complains of Lt. shoulder pain. HR running low - currently 40s, normally in 60s. Poor historian. TECHNIQUE: Brain: Multiple axial CT images of the brain were obtained without IV contrast. Cspine: Axial CT images from the skull base to the inferior aspect of T2 we obtained without intraven ous contrast. Coronal and sagittal reformatted images were also reviewed. . CT DLP: 2043 mGycm, Automated exposure control for dose reduction was used. FINDINGS: Brain: Extra-axial spaces: No abnormal extra-axial fluid collections. Ventricular system: Dilatation in proportion to cerebral atrophy. Cerebral parenchyma: Cerebral atrophy. No acute intraparenchymal hemorrhage or mass effect. The hwang -white junction is well differentiated. Scattered hypoattenuating areas are seen within the white mat ter. Cerebellum: Unremarkable. Mass effect: No evidence of midline shift. Intracranial vasculature: unremarkable Soft tissues: Normal. Calvarium/osseous structures: No depressed skull fracture. Paranasal sinuses and mastoid air cells: Clear. Visualized orbits: Orbital contents are intact. Cervical spine: Fracture: None. Osseous structures: Multilevel degenerative disc disease changes with endplate spurring and disc oste ophyte complex's. Vertebral alignment: Within normal limits. Spinal canal/Neural Foramina: Multilevel facet arthropathy and uncovertebral hypertrophy causes very degrees of multilevel neural foraminal narrowing and spinal canal stenosis. Neck soft tissues: Prevertebral soft tissues are within normal limits. Other: The airway is patent. The lung apices are clear. IMPRESSION: 1. No acute intracranial abnormality. 2. No acute fracture or traumatic subluxation of the cervical spine. [facility], , 12/01/2024 11:11 PM
[2024-12-01] MEDS ORDERED: ONDANSETRON 4 MG/2 ML VIAL IVP PRN (23:22)
[2024-12-01] MEDS ORDERED: NALOXONE 0.4 MG/ML 1 ML VIAL IV PRN (23:22)
[2024-12-01 23:35] LABS: ALT 39 U/L (4-34); AST 43 U/L (14-36); African American GFR (CKD) 58 (>60 ml/min/1.73 sqM); Albumin 3.0 g/dL (3.5-5.0); Alkaline Phosphatase 175 U/L (38-126); Anion Gap 5 mmol/L; Blood Urea Nitrogen 43 mg/dL (7-17); Calcium 9.5 mg/dL (8.4-10.2); Carbon Dioxide 26 mmol/L (22-30); Chloride 99 mmol/L (98-107); Glucose 140 mg/dL (74-99); Magnesium 2.1 mg/dL (1.6-2.3); Non-African American GFR(CKD) 50 (>60 ml/min/1.73 sqM); Sodium 130 mmol/L (137-145); Total Protein 5.6 g/dL (6.3-8.2)
[2024-12-01 23:36] LABS: Potassium 5.7 mmol/L (3.5-5.1)
[2024-12-01 23:37] LABS: INR 0.9 (<1.2); Partial Thromboplastin Time 26.4 sec (22.0-30.0); Prothrombin Time 10.4 sec (10.0-12.5)
--- NOTE | 2024-12-02 00:47 | XR ---
EXAM: XR Left Shoulder Complete, 2 or More Views CLINICAL HISTORY: ITS.REASON XR Reason: Closed reduction TECHNIQUE: Two or more views of the left shoulder. COMPARISON: Earlier same day. FINDINGS: Bones/joints: Closed reduction. Anatomic alignment on the single provided view. Osseous demineralization. Soft tissues: Unremarkable. IMPRESSION: Closed reduction. Anatomic alignment on the single provided view.
[2024-12-02] MEDS: ACETAMINOPHEN TAB 325 MG TAB PO PRN (02:31)
[2024-12-02] MEDS ORDERED: MORPHINE SULFATE 2 MG/ML SYRINGE IVP PRN (04:54)
[2024-12-02] MEDS: MORPHINE SULFATE 2 MG/ML SYRINGE IVP STA (07:14)
[2024-12-02 11:32] LABS: African American GFR (CKD) 55 (>60 ml/min/1.73 sqM); Anion Gap 5 mmol/L; Blood Urea Nitrogen 38 mg/dL (7-17); Calcium 9.3 mg/dL (8.4-10.2); Carbon Dioxide 27 mmol/L (22-30); Chloride 103 mmol/L (98-107); Glucose 82 mg/dL (74-99); Non-African American GFR(CKD) 48 (>60 ml/min/1.73 sqM); Potassium 5.0 mmol/L (3.5-5.1); Sodium 135 mmol/L (137-145)
--- NOTE | 2024-12-02 12:25 | P.CRDCN ---
History of Present Illness Consult date: 12/02/24 History of present illness: HISTORY OF PRESENTING ILLNESS: 84-year-old female who presented from [facility] to [facility] ER because of left shoulder pain. It is unclear if patient had a fall at the facility. Patient is a poor historian and is not able to provide any history. However on examination she has large and significant ecchymosis on her left side of the body. She was also noticed to have left-sided shoulder dislocation which was fixed in the ER. Cardiology was consulted because patient has been noticed to be bradycardic during hospital stay with heart rates in 40s sinus bradycardia when she is resting. Admission Vitals: 161/61, heart rate 47 Admission Labs: Hb 12, sodium 130, potassium 5.7, BUN 43, creatinine 1.07, repeat BUN 38, creatinine 1.06, potassium 5 Admission EKG: Sinus bradycardia, REVIEW OF SYSTEMS: 14 point review of system is negative except what is mentioned above in HPI. PHYSICAL EXAMINATION: Neck: Brisk carotid upstroke, no jugular venous distention. Lungs: Poor respiratory effort, mild crackles audible Heart: Regular rate and rhythm, S1-S2, , no murmur or rub. Abdomen: Soft nontender, positive bowel sounds. Extremities: No edema, intact distal pulses. Neuro: Alert, oritented, no focal deficits. Detailed neuro exam was not performed. Large ecchymosis noted in the left side of the body ASSESSMENT: # Sinus bradycardia # Questionable fall, unsure if syncopal episode or not. # History of paroxysmal atrial fibrillation, currently sinus bradycardia # Prior history of CVA # Morbid obesity with concerns of obesity hypoventilation syndrome # Type 2 diabetes # Essential hypertension # Dyslipidemia PLAN: Hold her Tenormin. Do not resume AV yohannes blocking agents on discharge Continue to monitor telemetry. No signs of high-grade AV block or sinus arrest or pauses noticed at this time. Obtain updated echocardiogram Continue aspirin, lisinopril 10 mg daily Hold her Eliquis for now because of significant bruising. Once it is confirmed that hemoglobin is stable and there is no significant trauma consider resuming it especially because of prior history of CVA Evaluate for obstructive sleep apnea as that might be contributing to bradycardia as well Check for CPK and myogobin, NT-proBNP lipids a1c Mykel Gongora MD, FACC, RPVI Thank you for allowing [facility] to participate in this patient's care. Feel free to reach out in case of any followup questions. Past Medical History Past Medical History: Atrial Fibrillation, Cancer, CVA/TIA, Diabetes Mellitus, Hyperlipidemia, Hypertension, Syncope Additional Past Medical History / Comment(s): Degeneration of intervebral disc, peripheral neuropathy. CA Right breat, obesity, [place] History of Any Multi-Drug Resistant Organisms: None Reported Past Surgical History: Hysterectomy Additional Past Surgical History / Comment(s): colonoscpy, cataract, Right brrease mastectomy. D&C Past Anesthesia/Blood Transfusion Reactions: No Reported Reaction Past Psychological History: No Psychological Hx Reported Smoking Status: Never smoker Past Alcohol Use History: None Reported Past Drug Use History: None Reported - Past Family History Mother Family Medical History: Cancer, Hypertension Father Family Medical History: Coronary Artery Disease (CAD), Myocardial Infarction (PR) Brother(s) Family Medical History: Coronary Artery Disease (CAD) Medications and Allergies Home Medications Medication Instructions Recorded Confirmed Type Aspirin [Adult Low Dose Aspirin EC] 81 mg PO HS 09/15/17 11/14/24 History atenoloL [Tenormin] 50 mg PO BID 10/21/21 11/14/24 History Apixaban [Eliquis] 5 mg PO BID #60 tab 10/27/21 11/14/24 Rx Sertraline [Zoloft] 25 mg PO DAILY 11/14/24 11/14/24 History Torsemide [Demadex] 5 mg PO DAILY@119911/14/24 11/14/24 History amLODIPine [Norvasc] 10 mg PO DAILY@119911/14/24 11/14/24 History lisinopriL [Zestril] 10 mg PO DAILY@119911/14/24 11/14/24 History Acetaminophen Tab [Tylenol] 650 mg PO Q6HR PRN tab 11/16/24 Rx INSULIN LISPRO (HumaLOG) [HumaLOG] 0 unit SQ ACHS each 11/16/24 Rx Insulin Glargine (Lantus) [Lantus 20 unit SQ HS each 11/16/24 Rx Vial] Nystatin 100,000 Unit/gm Powd 1 applic TOPICAL BID each 11/16/24 Rx [Mycostatin Powder] Pantoprazole [Protonix] 40 mg PO AC-BRKFST tab 11/16/24 Rx Allergies Allergy/AdvReac Type Severity Reaction Status Date / Time Qilchnk-VJP-LsP Reductase Allergy Rash/Hives Verified 11/14/24 20:12 Inhibitor [Ruwyeam-Epa-Mwc Reductase Inhibitor] codeine AdvReac Rash/Hives Verified 11/14/24 20:12 metformin AdvReac Abdominal Verified 11/14/24 20:12 Pain Sulfa (Sulfonamide AdvReac Rash/Hives Verified 11/14/24 20:12 Antibiotics) & Nausea Physical Exam Vitals: Vital Signs Temp Pulse Resp BP Pulse Ox 12/02/24 10:32 36 L 16 155/63 96 12/02/24 08:35 97.9 F 12/02/24 07:27 38 L 99 12/02/24 06:53 43 L 16 149/71 98 12/02/24 02:30 47 L 18 161/61 98 12/02/24 02:00 44 L 16 151/61 98 12/02/24 01:30 42 L 18 151/5 97 12/02/24 01:00 40 L 16 171/69 99 12/02/24 00:30 36 L 16 159/61 100 12/02/24 00:00 35 L 18 151/59 100 12/01/24 23:45 35 L 14 126/51 99 12/01/24 23:30 33 L 10 L 99/58 98 12/01/24 23:18 31 L 16 102/53 97 12/01/24 23:13 34 L 18 92/59 94 L 12/01/24 23:08 36 L 10 L 99/77 95 12/01/24 23:05 43 L 18 138/71 100 12/01/24 20:16 97.5 F L 46 L 18 129/82 96 Intake and Output 12/01/24 12/02/24 12/02/24 22:59 06:59 14:59 Other: Weight 90.718 kg Results 12/01/24 22:30 12/02/24 11:00 Cardiac Enzymes 12/01/24 12/01/24 12/02/24 Range/Units 23:01 23:01 03:08 AST 43 H (14-36) U/L Troponin I <0.012 <0.012 (0.000-0.034) ng/mL Coagulation 12/01/24 Range/Units 23:01 PT 10.4 (10.0-12.5) sec APTT 26.4 (22.0-30.0) sec CBC 12/01/24 Range/Units 22:30 WBC 7.51 (4.50-10.00) 10*3/uL RBC 4.01 L (4.10-5.20) 10*6/uL Hgb 12.5 (12.0-15.0) g/dL Hct 36.8 L (37.2-46.3) % Plt Count 289 (140-440) 10*3/uL Comprehensive Metabolic Panel 12/01/24 12/02/24 Range/Units 23:01 11:00 Sodium 130 L 135 L (137-145) mmol/L Potassium 5.7 H 5.0 (3.5-5.1) mmol/L Chloride 99 103 (98-107) mmol/L Carbon Dioxide 26 27 (22-30) mmol/L BUN 43 H 38 H (7-17) mg/dL Creatinine 1.02 1.06 H (0.52-1.04) mg/dL Glucose 140 H 82 (74-99) mg/dL Calcium 9.5 9.3 (8.4-10.2) mg/dL AST 43 H (14-36) U/L ALT 39 H (4-34) U/L Alkaline Phosphatase 175 H (38-126) U/L Total Protein 5.6 L (6.3-8.2) g/dL Albumin 3.0 L (3.5-5.0) g/dL Current Medications Generic Name Dose Route Start Last Admin Trade Name Freq PRN Reason Stop Dose Admin Acetaminophen 650 mg 12/01/24 23:22 12/02/24 02:31 Acetaminophen Tab 325 Mg Tab PO 650 mg Q6HR PRN Administration Mild Pain or Fever > 100.5 Aspirin 81 mg 12/02/24 12:30 Aspirin 81 Mg PO DAILY [facility] Lisinopril 10 mg 12/02/24 12:30 Lisinopril 10 Mg Tab PO DAILY [facility] Naloxone HCl 0.2 mg 12/01/24 23:22 Naloxone 0.4 Mg/Ml 1 Ml Vial IV Q2M PRN Opioid Reversal Ondansetron HCl 4 mg 12/01/24 23:22 Ondansetron 4 Mg/2 Ml Vial IVP Q8HR PRN Nausea And Vomiting Intake and Output 12/01/24 12/02/24 12/02/24 22:59 06:59 14:59 Other: Weight 90.718 kg 12/01/24 22:30 12/02/24 11:00
[2024-12-02 12:49] LABS: Magnesium 2.1 mg/dL (1.6-2.3)
[2024-12-02] MEDS: ASPIRIN 81 MG PO SCH (12:56)
[2024-12-02 12:58] LABS: NT-Pro-B-Type Natriuretic Pept 561 pg/mL
--- NOTE | 2024-12-02 17:57 | P.HPIM ---
History of Present Illness H&P Date: 12/02/24 Chief Complaint: Left shoulder pain 84-year-old female sent from [facility] for increased bruising on left side. Patient is a poor historian and says she fell last week but is unsure how. She cannot specifically remember any falls or injuries. She is complaining of left shoulder pain however is unsure when this started. Denies chest pain, shortness of breath, abdominal pain, headache, vision changes. She is on thinners. She was recently admitted approximately 2 weeks ago for weakness and multiple falls at which time she was placed at [facility]. Patient has a history remarkable for atrial fibrillation, CVA, diabetes mellitus, hypertension, hyperlipidemia. In the ED heart rate is found to be in the 40s however patient is asymptomatic. Blood pressure 129/82. On physical examination there is diffuse left-sided bruising. Neurovascularly intact to all extremities. -Left shoulder x-ray reveals questionable anterior dislocation of the humeral head relative the glenoid. -CT chest/abdomen/pelvis reveals no acute traumatic process. CT brain and C- spine reveals no acute process. In the ED conscious sedation performed for closed reduction, postreduction x- rays revealed improved anatomical alignment. Patient was placed in a sling. Patient will be admitted to medicine for bradycardia with cardiology consult. Review of Systems ROS unobtainable: due to mental status Past Medical History Past Medical History: Atrial Fibrillation, Cancer, CVA/TIA, Diabetes Mellitus, Hyperlipidemia, Hypertension, Syncope Additional Past Medical History / Comment(s): Degeneration of intervebral disc, peripheral neuropathy. CA Right breat, obesity, [place] History of Any Multi-Drug Resistant Organisms: None Reported Past Surgical History: Hysterectomy Additional Past Surgical History / Comment(s): colonoscpy, cataract, Right brrease mastectomy. D&C Past Anesthesia/Blood Transfusion Reactions: No Reported Reaction Past Psychological History: No Psychological Hx Reported Smoking Status: Never smoker Past Alcohol Use History: None Reported Past Drug Use History: None Reported - Past Family History Mother Family Medical History: Cancer, Hypertension Father Family Medical History: Coronary Artery Disease (CAD), Myocardial Infarction (ID) Brother(s) Family Medical History: Coronary Artery Disease (CAD) Medications and Allergies Home Medications Medication Instructions Recorded Confirmed Type Aspirin [Adult Low Dose Aspirin EC] 81 mg PO HS@2100 09/15/17 12/02/24 History atenoloL [Tenormin] 50 mg PO BID@0800,1700 10/21/21 12/02/24 History Sertraline [Zoloft] 25 mg PO DAILY@0800 11/14/24 12/02/24 History Torsemide [Demadex] 5 mg PO DAILY@1200 11/14/24 12/02/24 History amLODIPine [Norvasc] 10 mg PO DAILY@1200 11/14/24 12/02/24 History lisinopriL [Zestril] 10 mg PO DAILY@1200 11/14/24 12/02/24 History Acetaminophen Tab [Tylenol Tab] 500 - 1,000 mg PO Q8H PRN 12/02/24 12/02/24 History Acetaminophen Tab [Tylenol] 650 mg PO Q6HR PRN 12/02/24 12/02/24 History Apixaban [Eliquis] 5 mg PO BID@0800,1700 12/02/24 12/02/24 History INSULIN LISPRO (HumaLOG) [HumaLOG] See Protocol SQ ACHS 12/02/24 12/02/24 History Insulin Glargine (Lantus) [Lantus 28 unit SQ HS@2100 12/02/24 12/02/24 History Vial] Magnesium Hydroxide [Milk of 7,200 mg PO DAILY PRN 12/02/24 12/02/24 History Magnesia Concentrate] Na Phos,M-B/Na Phos,Di-Ba [Fleet 133 ml RECTAL DAILY PRN 12/02/24 12/02/24 History Adult] Nystatin 100,000 Unit/gm Powd 1 applic TOPICAL BID 12/02/24 12/02/24 History [Mycostatin Powder] Pantoprazole [Protonix] 40 mg PO DAILY@0700 12/02/24 12/02/24 History bisacodyL [Dulcolax] 10 mg RECTAL DAILY PRN 12/02/24 12/02/24 History Allergies Allergy/AdvReac Type Severity Reaction Status Date / Time Ugapakz-MEC-XfM Reductase Allergy Rash/Hives Verified 12/02/24 13:52 Inhibitor [Syrzrrj-Hps-Uqk Reductase Inhibitor] codeine AdvReac Rash/Hives Verified 12/02/24 13:52 metformin AdvReac Abdominal Verified 12/02/24 13:52 Pain Sulfa (Sulfonamide AdvReac Rash/Hives Verified 12/02/24 13:52 Antibiotics) & Nausea Physical Exam Vitals: Vital Signs Temp Pulse Resp BP Pulse Ox 12/02/24 10:32 36 L 16 155/63 96 12/02/24 08:35 97.9 F 12/02/24 07:27 38 L 99 12/02/24 06:53 43 L 16 149/71 98 12/02/24 02:30 47 L 18 161/61 98 12/02/24 02:00 44 L 16 151/61 98 12/02/24 01:30 42 L 18 151/5 97 12/02/24 01:00 40 L 16 171/69 99 12/02/24 00:30 36 L 16 159/61 100 12/02/24 00:00 35 L 18 151/59 100 12/01/24 23:45 35 L 14 126/51 99 12/01/24 23:30 33 L 10 L 99/58 98 12/01/24 23:18 31 L 16 102/53 97 12/01/24 23:13 34 L 18 92/59 94 L 12/01/24 23:08 36 L 10 L 99/77 95 12/01/24 23:05 43 L 18 138/71 100 12/01/24 20:16 97.5 F L 46 L 18 129/82 96 Intake and Output 12/01/24 12/02/24 12/02/24 22:59 06:59 14:59 Other: Weight 90.718 kg Head exam: Present: atraumatic, normocephalic, normal inspection Eye exam: Present: normal appearance, PERRL, EOMI. Absent: scleral icterus, conjunctival injection, periorbital swelling ENT exam: Present: normal exam, mucous membranes moist Neck exam: Present: normal inspection. Absent: tenderness, meningismus, lym phadenopathy Respiratory exam: Present: normal lung sounds bilaterally. Absent: respiratory distress, wheezes, rales, rhonchi, stridor Cardiovascular Exam: Present: normal rhythm, bradycardia, normal heart sounds. Absent: systolic murmur, diastolic murmur, rubs, gallop, clicks GI/Abdominal exam: Present: soft, normal bowel sounds. Absent: distended, tenderness, guarding, rebound, rigid Left Shoulder Exam: Present: full ROM (Pain with range of motion), tenderness. Absent: normal inspection (Large amount of bruising present along the left shoulder), swelling, abrasion, laceration Upper Arm exam: Present: normal inspection, full ROM. Absent: tenderness, swelling Elbow exam: Present: normal inspection, full ROM. Absent: tenderness, swelling Forearm Wrist exam: Present: normal inspection, full ROM. Absent: tenderness, swelling Hand Wrist exam: Present: normal inspection, full ROM. Absent: tenderness, swelling Vascular: Present: normal capillary refill, radial pulse. Absent: vascular compromise Neurological exam: Present: alert, oriented X3 Psychiatric exam: Present: normal affect, normal mood Skin exam: Present: warm, dry, intact, normal color, other (Patient has deep purple/red contusions present across left shoulder extending to left flank) Results CBC & Chem 7: 12/01/24 22:30 12/02/24 11:00 Labs: Abnormal Lab Results - Last 24 Hours (Table) 12/01/24 12/01/24 Range/Units 22:30 23:01 RBC 4.01 L (4.10-5.20) 10*6/uL Hct 36.8 L (37.2-46.3) % Immature Gran # 0.08 H (0.00-0.04) 10*3/uL Sodium 130 L (137-145) mmol/L Potassium 5.7 H (3.5-5.1) mmol/L BUN 43 H (7-17) mg/dL Glucose 140 H (74-99) mg/dL Total Bilirubin 1.5 H (0.2-1.3) mg/dL AST 43 H (14-36) U/L ALT 39 H (4-34) U/L Alkaline Phosphatase 175 H (38-126) U/L Total Protein 5.6 L (6.3-8.2) g/dL Albumin 3.0 L (3.5-5.0) g/dL Assessment and Plan Assessment: 1. Fall with left shoulder pain -X-ray of the shoulder reveals anterior dislocation of the humeral head relative to glenoid - Conscious sedation was done in ED and patient underwent closed reduction; postreduction x-ray was done which revealed improved anatomical alignment; patient's arm remains in sling 2. Symptomatic bradycardia; patient is currently on Tenormin - Patient will be admitted to telemetry; hold Tenormin - Consult cardiology 3. Hyperkalemia; currently not on any supplement; possibly associated with DESIRAE inhibitor use; will monitor 4. Elevated liver enzymes - Total bilirubin elevated at 1.5 with mild elevation of AST/ALT; will repeat liver enzymes with further workup if continuing to trend 5. Hypertension; continue home dose of Norvasc 10 mg daily; hold atenolol; lisinopril 10 mg daily 6. Diabetes mellitus with long-term insulin use; continue home dose of Lantus 28 units SQ nightly; monitor Accu-Cheks q. CHS with insulin sliding scale 7. Depression; Zoloft 25 mg daily DVT prophylaxis; SCDs/Eliquis CODE STATUS; full code
[2024-12-02] MEDS ORDERED: NON FORMULARY DRUG (Aspirin [Adult Low Dose Aspirin Ec] 81 MG Tablet.Dr) PO SCH (21:00)
[2024-12-02 21:46] LABS: Glucose,Whole Blood 276 mg/dL (70-110)
[2024-12-02] MEDS: INSULIN GLARGINE (LANTUS) 100 UNIT/ML SYR SQ SCH (21:46)
[2024-12-03 00:41] LABS: Cholesterol 142.00 mg/dL (0.00-200.00); HDL Cholesterol 41.90 mg/dL (40.00-60.00); LDL Cholesterol,Calculated 75.3 mg/dL (0.0-131.0); Triglycerides 124.00 mg/dL (0.00-149.00); VLDL Calculation 24.80 mg/dL (5.00-40.00)
[2024-12-03 07:21] LABS: Basophils # (A) 0.08 10*3/uL (0.00-0.10); Basophils % (A) 1.0 %; Eosinophils # (A) 0.18 10*3/uL (0.04-0.35); Eosinophils % (A) 2.3 %; HCT 36.9 % (37.2-46.3); HGB 12.3 g/dL (12.0-15.0); Lymphocytes # (A) 2.26 10*3/uL (0.90-5.00); Lymphocytes % (A) 28.9 %; MCH 30.8 pg (27.0-32.0); MCHC 33.3 g/dL (32.0-37.0); MCV 92.3 fL (80.0-97.0); Monocytes # (A) 0.81 10*3/uL (0.20-1.00); Monocytes % (A) 10.4 %; Neutrophils # (A) 4.39 10*3/uL (1.80-7.70); Neutrophils % (A) 56.2 %; Platelet Count 408 10*3/uL (140-440); RBC 4.00 10*6/uL (4.10-5.20); RDW 13.8 % (11.5-14.5); WBC 7.81 10*3/uL (4.50-10.00)
[2024-12-03 07:31] LABS: African American GFR (CKD) 67 (>60 ml/min/1.73 sqM); Anion Gap 3 mmol/L; Blood Urea Nitrogen 44 mg/dL (7-17); Calcium 9.5 mg/dL (8.4-10.2); Carbon Dioxide 26 mmol/L (22-30); Chloride 104 mmol/L (98-107); Glucose 90 mg/dL (74-99); Non-African American GFR(CKD) 58 (>60 ml/min/1.73 sqM); Potassium 5.1 mmol/L (3.5-5.1); Sodium 133 mmol/L (137-145)
[2024-12-03] MEDS: PANTOPRAZOLE 40 MG TABLET PO SCH (09:01)
[2024-12-03] MEDS: APIXABAN 5 MG TAB PO SCH (09:01)
[2024-12-03] MEDS: SERTRALINE 25 MG TAB PO SCH (09:01)
[2024-12-03] MEDS: ACETAMINOPHEN TAB 325 MG TAB PO PRN (09:02)
--- NOTE | 2024-12-03 09:03 | P.PN ---
Subjective 84-year-old female sent from [facility] for increased bruising on left side. Patient is a poor historian and says she fell last week but is unsure how. She cannot specifically remember any falls or injuries. She is complaining of left shoulder pain however is unsure when this started. Denies chest pain, shortness of breath, abdominal pain, headache, vision changes. She is on thinners. She was recently admitted approximately 2 weeks ago for weakness and multiple falls at which time she was placed at [facility]. Patient has a history remarkable for atrial fibrillation, CVA, diabetes mellitus, hypertension, hyperlipidemia. In the ED heart rate is found to be in the 40s however patient is asymptomatic. Blood pressure 129/82. On physical examination there is diffuse left-sided bruising. Neurovascularly intact to all extremities. -Left shoulder x-ray reveals questionable anterior dislocation of the humeral head relative the glenoid. -CT chest/abdomen/pelvis reveals no acute traumatic process. CT brain and C- spine reveals no acute process. In the ED conscious sedation performed for closed reduction, postreduction x- rays revealed improved anatomical alignment. Patient was placed in a sling. Patient will be admitted to medicine for bradycardia with cardiology consult. 12/03 This is a pleasant 84 years old female who presents from [place] for increased bruise on the left side. There is reports of falling last week with left shoulder pain. Also patient was found to have heart rate in 40s Patient close reduction of her left anterior dislocated shoulder, she still have some pain tenderness and deformity in her left shoulders with limitation of movement therefore we are going to consult orthopedic team Patient heart rate in 40s and low 50s, currently asymptomatic no chest pain dyspnea or dizziness. She was on metoprolol 25 mg 3 times daily which is currently on hold Repeat shoulder x-ray yesterday showing close reduction of the shoulder pretty well CT of the head and neck showing no acute process and CT of the chest abdominal pelvis showing cardiomegaly small bilateral pleural effusion with no a cute abnormality. I reviewed the images by myself and agree. Cardiology following closely. We are going to consult orthopedic team Review of systems CONSTITUTIONAL: No fever, no malaise, no fatigue. HEENT: No recent visual problems or hearing problems. Denied any sore throat. CARDIOVASCULAR: No orthopnea, PND, no palpitations, no syncope. NEUROLOGICAL: No headaches, no weakness, no numbness. HEMATOLOGICAL: Denies any bleeding or petechiae. GENITOURINARY: Denies any burning micturition, frequency, or urgency. MUSCULOSKELETAL/RHEUMATOLOGICAL: Denies any joint pain, swelling, or any muscle pain. ENDOCRINE: Denies any polyuria or polydipsia. Active Medications Generic Name Dose Route Start Last Admin Trade Name Freq PRN Reason Stop Dose Admin Acetaminophen 650 mg 12/02/24 17:54 12/03/24 09:02 Acetaminophen Tab 325 Mg Tab PO 650 mg Q6HR PRN Administration Fever and/ or Pain Amlodipine Besylate 10 mg 12/03/24 12:00 Amlodipine 10 Mg Tab PO DAILY@1200 [facility] Apixaban 5 mg 12/03/24 08:00 12/03/24 09:01 Apixaban 5 Mg Tab PO 5 mg BID@0800,1700 [facility] Administration Protocol Aspirin 81 mg 12/02/24 12:30 12/03/24 09:01 Aspirin 81 Mg PO 81 mg DAILY JORDYN Administration Furosemide 10 mg 12/03/24 12:00 Furosemide 10 Mg Tab PO DAILY@1200 [facility] Insulin Glargine 28 unit 12/02/24 21:00 12/02/24 21:46 Insulin Glargine (Lantus) 100 Unit/Ml Syr SQ 28 unit HS@2100 [facility] Administration Lisinopril 10 mg 12/02/24 12:30 12/03/24 09:01 Lisinopril 10 Mg Tab PO 10 mg DAILY [facility] Administration Naloxone HCl 0.2 mg 12/01/24 23:22 Naloxone 0.4 Mg/Ml 1 Ml Vial IV Q2M PRN Opioid Reversal Ondansetron HCl 4 mg 12/01/24 23:22 Ondansetron 4 Mg/2 Ml Vial IVP Q8HR PRN Nausea And Vomiting Pantoprazole Sodium 40 mg 12/03/24 07:00 12/03/24 09:01 Pantoprazole 40 Mg Tablet PO 40 mg DAILY@0700 [facility] Administration Sertraline HCl 25 mg 12/03/24 08:00 12/03/24 09:01 Sertraline 25 Mg Tab PO 25 mg DAILY@0800 [facility] Administration Objective - Vital Signs Vital signs: Vital Signs Temp 97.9 F 12/02/24 08:35 Pulse 52 L 12/03/24 06:00 Resp 18 12/03/24 06:00 BP 136/50 12/03/24 06:00 Pulse Ox 95 12/03/24 06:00 FiO2 - Exam -GENERAL: The patient is alert and oriented x3, not in any acute distress. Well developed, well nourished. Obese HEENT: Pupils are round and equally reacting to light. EOMI. No scleral icterus. No conjunctival pallor. Normocephalic, atraumatic. No pharyngeal erythema. No thyromegaly. CARDIOVASCULAR: S1 and S2 present. No murmurs, rubs, or gallops. PULMONARY: Chest is clear to auscultation, no wheezing , no crackles. ABDOMEN: Soft, nontender, nondistended, normoactive bowel sounds. No palpable organomegaly. MUSCULOSKELETAL: No joint swelling or deformity. -EXTREMITIES: No cyanosis, clubbing, or pedal edema. Left shoulder prominent and tender patient cannot raise her left arm above her head NEUROLOGICAL: Gross neurological examination did not reveal any focal deficits. SKIN: No rashes. no petechiae. - Labs CBC & Chem 7: 12/03/24 07:06 12/03/24 07:06 Labs: Abnormal Lab Results - Last 24 Hours (Table) 12/01/24 12/02/24 12/02/24 Range/Units 22:30 11:00 21:45 RBC (4.10-5.20) 10*6/uL Hct (37.2-46.3) % Immature Gran # (0.00-0.04) 10*3/uL Sodium 135 L (137-145) mmol/L BUN 38 H (7-17) mg/dL Creatinine 1.06 H (0.52-1.04) mg/dL POC Glucose (mg/dL) 276 H (70-110) mg/dL Hemoglobin A1c 8.9 H (<=6.0) % 12/03/24 12/03/24 Range/Units 07:06 07:06 RBC 4.00 L (4.10-5.20) 10*6/uL Hct 36.9 L (37.2-46.3) % Immature Gran # 0.09 H (0.00-0.04) 10*3/uL Sodium 133 L (137-145) mmol/L BUN 44 H (7-17) mg/dL Creatinine (0.52-1.04) mg/dL POC Glucose (mg/dL) (70-110) mg/dL Hemoglobin A1c (<=6.0) % Assessment and Plan Assessment: 1. Fall with left shoulder pain -X-ray of the shoulder reveals anterior dislocation of the humeral head relative to glenoid - Conscious sedation was done in ED and patient underwent closed reduction; postreduction x-ray was done which revealed improved anatomical alignment; maldonado pierce's arm remains in sling -Orthopedic team consult 2. Symptomatic bradycardia; patient is currently on Tenormin - Patient will be admitted to telemetry; hold Tenormin - Consult cardiology 3. Hyperkalemia; currently not on any supplement; possibly associated with DESIRAE inhibitor use; will monitor 4. Elevated liver enzymes - Total bilirubin elevated at 1.5 with mild elevation of AST/ALT; will repeat liver enzymes with further workup if continuing to trend 5. Hypertension; continue home dose of Norvasc 10 mg daily; hold atenolol; lisinopril 10 mg daily 6. Diabetes mellitus with long-term insulin use; continue home dose of Lantus 28 units SQ nightly; monitor Accu-Cheks q. CHS with insulin sliding scale 7. Depression; Zoloft 25 mg daily DVT prophylaxis; SCDs/Eliquis CODE STATUS; full code
--- NOTE | 2024-12-03 11:39 | P.PN ---
Subjective HISTORY OF PRESENT ILLNESS: 84-year-old female who presented from [facility] to [facility] ER because of left shoulder pain. It is unclear if patient had a fall at the facility. Patient is a poor historian and is not able to provide any history. However on examination she has large and significant ecchymosis on her left side of the body. She was also noticed to have left-sided shoulder dislocation which was fixed in the ER. Cardiology was consulted because patient has been noticed to be bradycardic during hospital stay with heart rates in 40s sinus bradycardia when she is resting. Admission Vitals: 161/61, heart rate 47 Admission Labs: Hb 12, sodium 130, potassium 5.7, BUN 43, creatinine 1.07, repeat BUN 38, creatinine 1.06, potassium 5 Admission EKG: Sinus bradycardia, 12/03/2024 Patient examined this morning in the emergency room. Patient currently denies chest pain or pressure. She denies shortness of breath. She denies any d izziness or lightheadedness. Telemetry revealed sinus mechanism with a heart rate in the 40s. Her atenolol remains on hold. PHYSICAL EXAM: VITAL SIGNS: Reviewed. GENERAL: Well-developed in no acute distress. NECK: Supple. No JVD or thyromegaly LUNGS: Respirations even and unlabored. Lungs essentially clear to auscultation bilaterally. HEART: Regular rate and rhythm. S1 and S2 heard. EXTREMITIES: Normal range of motion. No clubbing or cyanosis. Peripheral pulses intact. No lower extremity edema ASSESSMENT: Sinus bradycardia Questionable fall Paroxysmal atrial fibrillation Hypertension Hyperlipidemia History of CVA Diabetes Obesity: BMI 36.6 PLAN: 2D echo ordered. Await results. Continue anticoagulation with Eliquis Atenolol has been placed on hold. Continue to hold any AV yohnanes blocking agents Continue telemetry monitoring Further recommendations pending patient course Recommend outpatient sleep apnea evaluation Patient to follow-up postdischarge with Dr. Gongora as she does not currently follow with a oil developer Nurse practitioner note has been reviewed by physician. Signing provider agrees with the documented findings, assessment, and plan of care documented by CATALOGUE LIBRARIAN as a scribe. Objective - Vital Signs Vital signs: Vital Signs Temp 97.9 F 12/02/24 08:35 Pulse 49 L 12/03/24 09:00 Resp 17 12/03/24 09:00 BP 153/63 12/03/24 09:00 Pulse Ox 98 12/03/24 09:00 FiO2 - Labs CBC & Chem 7: 12/03/24 07:06 12/03/24 07:06 Labs: Abnormal Lab Results - Last 24 Hours (Table) 12/01/24 12/02/24 12/02/24 Range/Units 22:30 11:00 21:45 RBC (4.10-5.20) 10*6/uL Hct (37.2-46.3) % Immature Gran # (0.00-0.04) 10*3/uL Sodium 135 L (137-145) mmol/L BUN 38 H (7-17) mg/dL Creatinine 1.06 H (0.52-1.04) mg/dL POC Glucose (mg/dL) 276 H (70-110) mg/dL Hemoglobin A1c 8.9 H (<=6.0) % 12/03/24 12/03/24 Range/Units 07:06 07:06 RBC 4.00 L (4.10-5.20) 10*6/uL Hct 36.9 L (37.2-46.3) % Immature Gran # 0.09 H (0.00-0.04) 10*3/uL Sodium 133 L (137-145) mmol/L BUN 44 H (7-17) mg/dL Creatinine (0.52-1.04) mg/dL POC Glucose (mg/dL) (70-110) mg/dL Hemoglobin A1c (<=6.0) %
[2024-12-03 12:09] LABS: Glucose,Whole Blood 193 mg/dL (70-110)
[2024-12-03] MEDS: FUROSEMIDE 20 MG TAB PO SCH (14:29)
[2024-12-03] MEDS: amLODIPine 10 MG TAB PO SCH (14:30)
[2024-12-03] MEDS: FUROSEMIDE 10 MG TAB PO SCH (14:31)
[2024-12-03 16:56] LABS: Glucose,Whole Blood 198 mg/dL (70-110)
[2024-12-03] MEDS: INSULIN LISPRO (HumaLOG) 100 UNIT/ML 10 mL VL SQ SCH (17:02)
[2024-12-03 19:59] LABS: Glucose,Whole Blood 236 mg/dL (70-110)
[2024-12-04 06:08] LABS: Glucose,Whole Blood 72 mg/dL (70-110)
[2024-12-04 11:20] LABS: Glucose,Whole Blood 154 mg/dL (70-110)
--- NOTE | 2024-12-04 13:17 | P.PN ---
Subjective HISTORY OF PRESENT ILLNESS: 84-year-old female who presented from [facility] to [facility] ER because of left shoulder pain. It is unclear if patient had a fall at the facility. Patient is a poor historian and is not able to provide any history. However on examination she has large and significant ecchymosis on her left side of the body. She was also noticed to have left-sided shoulder dislocation which was fixed in the ER. Cardiology was consulted because patient has been noticed to be bradycardic during hospital stay with heart rates in 40s sinus bradycardia when she is resting. Admission Vitals: 161/61, heart rate 47 Admission Labs: Hb 12, sodium 130, potassium 5.7, BUN 43, creatinine 1.07, repeat BUN 38, creatinine 1.06, potassium 5 Admission EKG: Sinus bradycardia, 12/03/2024 Patient examined this morning in the emergency room. Patient currently denies chest pain or pressure. She denies shortness of breath. She denies any d izziness or lightheadedness. Telemetry revealed sinus mechanism with a heart rate in the 40s. Her atenolol remains on hold. 12/04/2024 Patient examined this morning the bedside. Patient without complaints of chest pain or shortness of breath. Telemetry reveals sinus mechanism with a heart rate in the 60s. PHYSICAL EXAM: VITAL SIGNS: Reviewed. GENERAL: Well-developed in no acute distress. NECK: Supple. No JVD or thyromegaly LUNGS: Respirations even and unlabored. Lungs essentially clear to auscultation bilaterally. HEART: Regular rate and rhythm. S1 and S2 heard. EXTREMITIES: Normal range of motion. No clubbing or cyanosis. Peripheral pulses intact. No lower extremity edema ASSESSMENT: Sinus bradycardia Questionable fall Paroxysmal atrial fibrillation Hypertension Hyperlipidemia History of CVA Diabetes Obesity: BMI 36.6 PLAN: 2D echo ordered. Await results. Continue anticoagulation with Eliquis Atenolol has been placed on hold. Do not resume upon discharge. Continue to hold any AV yohannes blocking agents Continue telemetry monitoring Further recommendations pending patient course Recommend outpatient sleep apnea evaluation Patient to follow-up postdischarge with Dr. Gongora as she does not currently follow with a retinal angiographer Patient is currently stable from a cardiac standpoint with no further inpatient recommendations We will sign off. Please reconsult if needed. Nurse practitioner note has been reviewed by physician. Signing provider agrees with the documented findings, assessment, and plan of care documented by INVASIVE CARDIOVASCULAR TECHNOLOGIST as a scribe. Objective - Vital Signs Vital signs: Vital Signs Temp 97.6 F 12/04/24 08:00 Pulse 62 12/04/24 08:00 Resp 18 12/04/24 08:00 BP 131/61 12/04/24 08:00 Pulse Ox 97 12/04/24 08:00 FiO2 Intake & Output 12/03/24 12/04/24 12/04/24 18:59 06:59 18:59 Intake Total 360 Output Total 1550 Balance -1550 360 Weight 90.718 kg 102.4 kg Intake: Oral 360 Output: Urine 1550 Other: Voiding Method External Catheter - Labs CBC & Chem 7: 12/03/24 07:06 12/03/24 07:06 Labs: Abnormal Lab Results - Last 24 Hours (Table) 12/03/24 12/03/24 12/04/24 Range/Units 16:55 19:58 06:22 POC Glucose (mg/dL) 198 H 236 H (70-110) mg/dL Hemoglobin A1c 8.8 H (<=6.0) % 12/04/24 Range/Units 11:18 POC Glucose (mg/dL) 154 H (70-110) mg/dL Hemoglobin A1c (<=6.0) %
--- NOTE | 2024-12-04 14:20 | P.CNOR ---
History of Present Illness - [facility] Consult date: 12/04/24 History of present illness: This is a 84-year-old female who per chart review was admitted approximately 2 weeks ago for weakness and multiple falls and was discharged to [facility] and was recently sent from [facility] for increased bruising on the entire left side of her body. She has a past medical history of CVA and is on Eliquis. Patient is a poor historian and sometimes says she fell last week but is unsure how and other times denies any recent falls. Patient presented to the emergency department where left shoulder x-rays were obtained and the patient had a left glenohumeral shoulder dislocation. Patient underwent conscious sedation with closed reduction in the ER and postreduction x-rays showed a reduced left shoulder. Patient was placed in a sling and transferred to the cardiac floor. Orthopedics was consulted for left shoulder pain. Today patient complains of generalized left shoulder pain, and numbness to the left ring and little finger. Patient also complains of diffuse ecchymosis over the left side of her body. Patient also complains of left hip pain. Denies any other complaints at the time of my exam. She states she normally ambulates with a 4 wheeled walker. She states she has not ambulated in 4 days and does not know why. Past Medical History Past Medical History: Atrial Fibrillation, Cancer, CVA/TIA, Diabetes Mellitus, Hyperlipidemia, Hypertension, Syncope Additional Past Medical History / Comment(s): Degeneration of intervebral disc, peripheral neuropathy. CA Right breast, obesity, PICAYUNE History of Any Multi-Drug Resistant Organisms: None Reported Past Surgical History: Hysterectomy Additional Past Surgical History / Comment(s): colonoscpy, cataract, Right brrease mastectomy. D&C Past Anesthesia/Blood Transfusion Reactions: No Reported Reaction Past Psychological History: No Psychological Hx Reported Smoking Status: Former smoker Past Alcohol Use History: None Reported Past Drug Use History: None Reported - Past Family History Mother Family Medical History: Cancer, Hypertension Father Family Medical History: Coronary Artery Disease (CAD), Myocardial Infarction (MA) Brother(s) Family Medical History: Coronary Artery Disease (CAD) Medications and Allergies Home Medications Medication Instructions Recorded Confirmed Type Aspirin [Adult Low Dose Aspirin EC] 81 mg PO HS@2100 09/15/17 12/02/24 History Sertraline [Zoloft] 25 mg PO DAILY@0800 11/14/24 12/02/24 History Torsemide [Demadex] 5 mg PO DAILY@1200 11/14/24 12/02/24 History amLODIPine [Norvasc] 10 mg PO DAILY@1200 11/14/24 12/02/24 History lisinopriL [Zestril] 10 mg PO DAILY@1200 11/14/24 12/02/24 History Acetaminophen Tab [Tylenol Tab] 500 - 1,000 mg PO Q8H PRN 12/02/24 12/02/24 History Acetaminophen Tab [Tylenol] 650 mg PO Q6HR PRN 12/02/24 12/02/24 History Apixaban [Eliquis] 5 mg PO BID@0800,1700 12/02/24 12/02/24 History INSULIN LISPRO (HumaLOG) [HumaLOG] See Protocol SQ ACHS 12/02/24 12/02/24 History Insulin Glargine (Lantus) [Lantus 28 unit SQ HS@2100 12/02/24 12/02/24 History Vial] Magnesium Hydroxide [Milk of 7,200 mg PO DAILY PRN 12/02/24 12/02/24 History Magnesia Concentrate] Na Phos,M-B/Na Phos,Di-Ba [Fleet 133 ml RECTAL DAILY PRN 12/02/24 12/02/24 History Adult] Nystatin 100,000 Unit/gm Powd 1 applic TOPICAL BID 12/02/24 12/02/24 History [Mycostatin Powder] Pantoprazole [Protonix] 40 mg PO DAILY@0700 12/02/24 12/02/24 History bisacodyL [Dulcolax] 10 mg RECTAL DAILY PRN 12/02/24 12/02/24 History Allergies Allergy/AdvReac Type Severity Reaction Status Date / Time [id number] Reductase Allergy Rash/Hives Verified 12/02/24 13:52 Inhibitor [Plcoast-Dya-But Reductase Inhibitor] codeine AdvReac Rash/Hives Verified 12/02/24 13:52 metformin AdvReac Abdominal Verified 12/02/24 13:52 Pain Sulfa (Sulfonamide AdvReac Rash/Hives Verified 12/02/24 13:52 Antibiotics) & Nausea Physical Examination Patient lying in bed. No acute distress. Head is normocephalic and atraumatic. No pain to palpation over the cervical spine or paraspinal muscles. Bilateral upper extremity exam: Inspection: Left upper extremity with diffuse ecchymosis and diffuse swelling down to the fingers. No open wounds visualized. Palpation: Generalized tenderness over the left shoulder. Nontender to palpation over bilateral clavicle, scapula, elbow, forearm, wrist, hand, or fingers. Vascular: 2+ radial pulse. Capillary refill under 2 seconds in all digits. Sensation: grossly intact to light touch. Patient axillary nerve function is grossly intact. Patient has 5 out of 5 bilateral shoulder shrug. Median, radial, ulnar, and anterior interosseous nerves are grossly intact to testing of bilateral upper extremities today. Bilateral lower extremity exam: Inspection: There is diffuse ecchymosis over the left lateral hip. No sign of infection, scars, or open lesions over the anterior or lateral hip. Palpation: Tenderness over the lateral and anterior hip. Range of motion: Patient had pain with passive range of motion of the left hip. No pain with passive range of motion of the right hip. Calves were soft to compression, negative Homans' sign. Vascular: Dorsalis pedis pulse 2+ bilaterally. Capillary refill under 2 seconds in all toes. Sensation: grossly intact to light touch throughout the bilateral lower extre mities. Results - Labs Labs: Abnormal Lab Results - Last 24 Hours (Table) 12/03/24 12/03/24 12/04/24 Range/Units 16:55 19:58 06:22 POC Glucose (mg/dL) 198 H 236 H (70-110) mg/dL Hemoglobin A1c 8.8 H (<=6.0) % 12/04/24 Range/Units 11:18 POC Glucose (mg/dL) 154 H (70-110) mg/dL Hemoglobin A1c (<=6.0) % H & H 12/01/24 12/03/24 Range/Units 22:30 07:06 Hgb 12.5 12.3 (12.0-15.0) g/dL Hct 36.8 L 36.9 L (37.2-46.3) % Coagulation 12/01/24 Range/Units 23:01 INR 0.9 (<1.2) Result Diagrams: 12/03/24 07:06 12/03/24 07:06 Assessment and Plan Assessment: Left shoulder pain Status post closed reduction under sedation left shoulder dislocation in the ER. Left hip pain. History of multiple falls Diffuse ecchymosis over the left Multiple medical problems. Plan: Left shoulder: Continue sling for comfort. May remove while in bed. Nonweightbearing of the left upper extremity. Continue pain control per primary team. Left hip: Stat AP pelvis x-ray ordered, future plans pending.
--- NOTE | 2024-12-04 15:33 | XR ---
EXAMINATION TYPE: XR pelvis AP view DATE OF EXAM: 12/04/2024 3:25 PM COMPARISON: None CLINICAL INDICATION: Female, 84 years old with history of Left hip pain; PHH, pain FINDINGS: Osteopenia. Further limitation due to underpenetration from large body habitus. There appears to be m ild to moderate degenerative change of the hips with axial joint space narrowing and some marginal sp urring. Degenerative change lower lumbar spine. Pubic symphysis appears intact. No displaced fracture is seen. IMPRESSION: Mild bilateral hip OA. There is osteopenia which limits the evaluation. No displaced fracture is seen . [facility], Workstation: [facility], 12/04/2024 3:30 PM
--- NOTE | 2024-12-04 15:48 | XR ---
EXAMINATION TYPE: XR Hip Complete LT DATE OF EXAM: 12/04/2024 3:25 PM COMPARISON: Pelvis same day CLINICAL INDICATION: Female, 84 years old with history of LEFT HIP PAIN; PHH, pain TECHNIQUE: 2 views FINDINGS: Mild to moderate axial joint space narrowing at the left hip with marginal spurring. Osteopenia and l arge body habitus limiting assessment. No displaced fracture is seen. IMPRESSION: Mild left hip OA. There is osteopenia and further limitation due to large body habitus. No displaced fracture is seen. If patient newly nonweightbearing or if there is concern for occult osseous injury, MRI can provide more sensitive evaluation. [facility], , 12/04/2024 3:46 PM
[2024-12-04 16:24] LABS: Glucose,Whole Blood 291 mg/dL (70-110)
[2024-12-04 19:55] LABS: Glucose,Whole Blood 157 mg/dL (70-110)
--- NOTE | 2024-12-05 05:28 | P.PN ---
Subjective 84-year-old female sent from [facility] for increased bruising on left side. Patient is a poor historian and says she fell last week but is unsure how. She cannot specifically remember any falls or injuries. She is complaining of left shoulder pain however is unsure when this started. Denies chest pain, shortness of breath, abdominal pain, headache, vision changes. She is on thinners. She was recently admitted approximately 2 weeks ago for weakness and multiple falls at which time she was placed at [facility]. Patient has a history remarkable for atrial fibrillation, CVA, diabetes mellitus, hypertension, hyperlipidemia. In the ED heart rate is found to be in the 40s however patient is asymptomatic. Blood pressure 129/82. On physical examination there is diffuse left-sided bruising. Neurovascularly intact to all extremities. -Left shoulder x-ray reveals questionable anterior dislocation of the humeral head relative the glenoid. -CT chest/abdomen/pelvis reveals no acute traumatic process. CT brain and C- spine reveals no acute process. In the ED conscious sedation performed for closed reduction, postreduction x- rays revealed improved anatomical alignment. Patient was placed in a sling. Patient will be admitted to medicine for bradycardia with cardiology consult. 12/03 This is a pleasant 84 years old female who presents from [facility] for increased bruise on the left side. There is reports of falling last week with left shoulder pain. Also patient was found to have heart rate in 40s Patient close reduction of her left anterior dislocated shoulder, she still have some pain tenderness and deformity in her left shoulders with limitation of movement therefore we are going to consult orthopedic team Patient heart rate in 40s and low 50s, currently asymptomatic no chest pain dyspnea or dizziness. She was on metoprolol 25 mg 3 times daily which is currently on hold Repeat shoulder x-ray yesterday showing close reduction of the shoulder pretty well CT of the head and neck showing no acute process and CT of the chest abdominal pelvis showing cardiomegaly small bilateral pleural effusion with no a cute abnormality. I reviewed the images by myself and agree. Cardiology following closely. We are going to consult orthopedic team 12/04 Patient heart rate is improved and currently in 60s, patient with no symptom cardiology following closely Patient still complaining from her left shoulder pain which is looks somewhat controlled, movement little better less deformity her sling is in place We are pending for orthopedic evaluation who saw the patient later on today and recommended hip and pelvic x-ray showing bilateral osteoarthritis of the hips but it is mild associated with no displaced fractures. Patient also complains from extensive bruise in her left breast and left chest down to the abdomen secondary to her shoulder problem We may hold 1 or 2 doses of Eliquis. Also patient on aspirin 81 mg Hemoglobin A1c is 8.8, patient is on Lantus 28 units. Patient cannot tolerate metformin because of GI symptom. Patient would be benefit from outpatient follow-up with straightening machine operator. Review of systems CONSTITUTIONAL: No fever, no malaise, no fatigue. HEENT: No recent visual problems or hearing problems. Denied any sore throat. CARDIOVASCULAR: No orthopnea, PND, no palpitations, no syncope. NEUROLOGICAL: No headaches, no weakness, no numbness. HEMATOLOGICAL: Denies any bleeding or petechiae. GENITOURINARY: Denies any burning micturition, frequency, or urgency. MUSCULOSKELETAL/RHEUMATOLOGICAL: Denies any joint pain, swelling, or any muscle pain. ENDOCRINE: Denies any polyuria or polydipsia. Active Medications Generic Name Dose Route Start Last Admin Trade Name Freq PRN Reason Stop Dose Admin Acetaminophen 650 mg 12/02/24 17:54 12/03/24 09:02 Acetaminophen Tab 325 Mg Tab PO 650 mg Q6HR PRN Administration Fever and/ or Pain Amlodipine Besylate 10 mg 12/03/24 12:00 Amlodipine 10 Mg Tab PO DAILY@1200 [facility] Apixaban 5 mg 12/03/24 08:00 12/03/24 09:01 Apixaban 5 Mg Tab PO 5 mg BID@0800,1700 [facility] Administration Protocol Aspirin 81 mg 12/02/24 12:30 12/03/24 09:01 Aspirin 81 Mg PO 81 mg DAILY JORDYN Administration Furosemide 10 mg 12/03/24 12:00 Furosemide 10 Mg Tab PO DAILY@1200 [facility] Insulin Glargine 28 unit 12/02/24 21:00 12/02/24 21:46 Insulin Glargine (Lantus) 100 Unit/Ml Syr SQ 28 unit HS@2100 [facility] Administration Lisinopril 10 mg 12/02/24 12:30 12/03/24 09:01 Lisinopril 10 Mg Tab PO 10 mg DAILY JORDYN Administration Naloxone HCl 0.2 mg 12/01/24 23:22 Naloxone 0.4 Mg/Ml 1 Ml Vial IV Q2M PRN Opioid Reversal Ondansetron HCl 4 mg 12/01/24 23:22 Ondansetron 4 Mg/2 Ml Vial IVP Q8HR PRN Nausea And Vomiting Pantoprazole Sodium 40 mg 12/03/24 07:00 12/03/24 09:01 Pantoprazole 40 Mg Tablet PO 40 mg DAILY@0700 [facility] Administration Sertraline HCl 25 mg 12/03/24 08:00 12/03/24 09:01 Sertraline 25 Mg Tab PO 25 mg DAILY@0800 [facility] Administration Objective - Vital Signs Vital signs: Vital Signs Temp 96.8 F L 12/04/24 03:42 Pulse 62 12/04/24 03:42 Resp 18 12/04/24 03:42 BP 155/74 12/04/24 03:42 Pulse Ox 97 12/04/24 03:42 FiO2 Intake & Output 12/03/24 12/04/24 12/04/24 18:59 06:59 18:59 Intake Total 180 Output Total 1550 Balance -1550 180 Weight 90.718 kg 102.4 kg Intake: Oral 180 Output: Urine 1550 Other: Voiding Method External Catheter - Exam -GENERAL: The patient is alert and oriented x3, not in any acute distress. Well developed, well nourished. Obese HEENT: Pupils are round and equally reacting to light. EOMI. No scleral icterus. No conjunctival pallor. Normocephalic, atraumatic. No pharyngeal erythema. No thyromegaly. CARDIOVASCULAR: S1 and S2 present. No murmurs, rubs, or gallops. PULMONARY: Chest is clear to auscultation, no wheezing , no crackles. ABDOMEN: Soft, nontender, nondistended, normoactive bowel sounds. No palpable organomegaly. MUSCULOSKELETAL: No joint swelling or deformity. -EXTREMITIES: No cyanosis, clubbing, or pedal edema. Left shoulder prominent and tender patient cannot raise her left arm above her head NEUROLOGICAL: Gross neurological examination did not reveal any focal deficits. SKIN: No rashes. no petechiae. - Labs CBC & Chem 7: 12/03/24 07:06 12/03/24 07:06 Labs: Abnormal Lab Results - Last 24 Hours (Table) 12/03/24 12/03/24 12/03/24 Range/Units 12:07 16:55 19:58 POC Glucose (mg/dL) 193 H 198 H 236 H (70-110) mg/dL Assessment and Plan Assessment: 1. Fall with left shoulder pain -X-ray of the shoulder reveals anterior dislocation of the humeral head relative to glenoid - Conscious sedation was done in ED and patient underwent closed reduction; postreduction x-ray was done which revealed improved anatomical alignment; patient's arm remains in sling -Orthopedic team consult: Recommended hip and pelvic x-ray showing osteoarthritis with no fracture 2. Symptomatic bradycardia; patient is currently on Tenormin - Patient will be admitted to telemetry; hold Tenormin - Consult cardiology improved - 3. Hyperkalemia; currently not on any supplement; possibly associated with DESIRAE inhibitor use; will monitor. Improved. Switch to low potassium diet 4. Elevated liver enzymes - Total bilirubin elevated at 1.5 with mild elevation of AST/ALT; will repeat liver enzymes with further workup if continuing to trend 5. Hypertension; continue home dose of Norvasc 10 mg daily; hold atenolol; lisinopril 10 mg daily 6. Diabetes mellitus with long-term insulin use; continue home dose of Lantus 28 units SQ nightly; monitor Accu-Cheks q. CHS with insulin sliding scale 7. Depression; Zoloft 25 mg daily DVT prophylaxis; SCDs/Eliquis CODE STATUS; full code
[2024-12-05 06:04] LABS: Glucose,Whole Blood 59 mg/dL (70-110)
[2024-12-05 06:05] LABS: Basophils # (A) 0.03 10*3/uL (0.00-0.10); Basophils % (A) 0.4 %; Eosinophils # (A) 0.06 10*3/uL (0.04-0.35); Eosinophils % (A) 0.8 %; HCT 34.0 % (37.2-46.3); HGB 11.2 g/dL (12.0-15.0); Lymphocytes # (A) 2.02 10*3/uL (0.90-5.00); Lymphocytes % (A) 26.4 %; MCH 30.1 pg (27.0-32.0); MCHC 32.9 g/dL (32.0-37.0); MCV 91.4 fL (80.0-97.0); Monocytes # (A) 0.82 10*3/uL (0.20-1.00); Monocytes % (A) 10.7 %; Neutrophils # (A) 4.62 10*3/uL (1.80-7.70); Neutrophils % (A) 60.5 %; Platelet Count 413 10*3/uL (140-440); RBC 3.72 10*6/uL (4.10-5.20); RDW 14.1 % (11.5-14.5); WBC 7.64 10*3/uL (4.50-10.00)
[2024-12-05 06:19] LABS: African American GFR (CKD) 59 (>60 ml/min/1.73 sqM); Anion Gap 6 mmol/L; Blood Urea Nitrogen 41 mg/dL (7-17); Calcium 9.5 mg/dL (8.4-10.2); Carbon Dioxide 24 mmol/L (22-30); Chloride 101 mmol/L (98-107); Glucose 58 mg/dL (74-99); Non-African American GFR(CKD) 52 (>60 ml/min/1.73 sqM); Potassium 4.8 mmol/L (3.5-5.1); Sodium 131 mmol/L (137-145)
[2024-12-05 06:22] LABS: Glucose,Whole Blood 83 mg/dL (70-110)
[2024-12-05 11:33] LABS: Glucose,Whole Blood 95 mg/dL (70-110)
[2024-12-05] MEDS: FUROSEMIDE 10 MG TAB PO SCH (12:16)
[2024-12-05 16:23] LABS: Glucose,Whole Blood 119 mg/dL (70-110)
[2024-12-05 20:14] LABS: Glucose,Whole Blood 224 mg/dL (70-110)
[2024-12-05] MEDS: INSULIN GLARGINE (LANTUS) 100 UNIT/ML SYR SQ SCH (20:33)
--- NOTE | 2024-12-06 00:29 | P.PN ---
Subjective 84-year-old female sent from [facility] for increased bruising on left side. Patient is a poor historian and says she fell last week but is unsure how. She cannot specifically remember any falls or injuries. She is complaining of left shoulder pain however is unsure when this started. Denies chest pain, shortness of breath, abdominal pain, headache, vision changes. She is on thinners. She was recently admitted approximately 2 weeks ago for weakness and multiple falls at which time she was placed at [facility]. Patient has a history remarkable for atrial fibrillation, CVA, diabetes mellitus, hypertension, hyperlipidemia. In the ED heart rate is found to be in the 40s however patient is asymptomatic. Blood pressure 129/82. On physical examination there is diffuse left-sided bruising. Neurovascularly intact to all extremities. -Left shoulder x-ray reveals questionable anterior dislocation of the humeral head relative the glenoid. -CT chest/abdomen/pelvis reveals no acute traumatic process. CT brain and C- spine reveals no acute process. In the ED conscious sedation performed for closed reduction, postreduction x- rays revealed improved anatomical alignment. Patient was placed in a sling. Patient will be admitted to medicine for bradycardia with cardiology consult. 12/03 This is a pleasant 84 years old female who presents from [place] for increased bruise on the left side. There is reports of falling last week with left shoulder pain. Also patient was found to have heart rate in 40s Patient close reduction of her left anterior dislocated shoulder, she still have some pain tenderness and deformity in her left shoulders with limitation of movement therefore we are going to consult orthopedic team Patient heart rate in 40s and low 50s, currently asymptomatic no chest pain dyspnea or dizziness. She was on metoprolol 25 mg 3 times daily which is currently on hold Repeat shoulder x-ray yesterday showing close reduction of the shoulder pretty well CT of the head and neck showing no acute process and CT of the chest abdominal pelvis showing cardiomegaly small bilateral pleural effusion with no a cute abnormality. I reviewed the images by myself and agree. Cardiology following closely. We are going to consult orthopedic team 12/04 Patient heart rate is improved and currently in 60s, patient with no symptom cardiology following closely Patient still complaining from her left shoulder pain which is looks somewhat controlled, movement little better less deformity her sling is in place We are pending for orthopedic evaluation who saw the patient later on today and recommended hip and pelvic x-ray showing bilateral osteoarthritis of the hips but it is mild associated with no displaced fractures. Patient also complains from extensive bruise in her left breast and left chest down to the abdomen secondary to her shoulder problem We may hold 1 or 2 doses of Eliquis. Also patient on aspirin 81 mg Hemoglobin A1c is 8.8, patient is on Lantus 28 units. Patient cannot tolerate metformin because of GI symptom. Patient would be benefit from outpatient follow-up with long term care pharmacist. 12/05 Patient clinically doing well and is improving Her main complaint is her left shoulder. Denies any other new complaint no chest pain dyspnea or dizziness Heart rate is improved in 60s after holding metoprolol and currently patient is asymptomatic regarding this Cardiology signed off the case Orthopedic team evaluated the patient and cleared her for discharge with recommendation for close outpatient follow-up in 1 to 2 weeks But time she was not clear it was late for the patient to go back to her [facility]. Possible discharge tomorrow morning Resume Eliquis tomorrow morning Her glucose was on the low side we lowered the dose of Lantus 28 units down to 25 units with close monitoring. Glucose gel as needed for hypoglycemia Active Medications Generic Name Dose Route Start Last Admin Trade Name Freq PRN Reason Stop Dose Admin Acetaminophen 650 mg 12/02/24 17:54 12/05/24 20:32 Acetaminophen Tab 325 Mg Tab PO 650 mg Q6HR PRN Administration Fever and/ or Pain Amlodipine Besylate 10 mg 12/03/24 12:00 12/05/24 12:16 Amlodipine 10 Mg Tab PO 10 mg DAILY@1200 [facility] Administration Apixaban 5 mg 12/06/24 09:00 Apixaban 5 Mg Tab PO BID [facility] Protocol Aspirin 81 mg 12/02/24 12:30 12/05/24 09:28 Aspirin 81 Mg PO 81 mg DAILY JORDYN Administration Dextrose/Water 25 ml 12/03/24 13:42 Dextrose 50% Syringe 50 Ml IVP PER PROTOCOL PRN Hypoglycemia Protocol Dextrose/Water 50 ml 12/03/24 13:42 Dextrose 50% Syringe 50 Ml IVP PER PROTOCOL PRN Hypoglycemia Protocol Furosemide 10 mg 12/05/24 12:00 12/05/24 12:16 Furosemide 10 Mg Tab PO 10 mg DAILY@1200 [facility] Administration Glucose 15 gm 12/06/24 00:22 Dextrose Gel 15 Gm/37.5 Ml Tube PO TID PRN Blood Sugar - Low Insulin Glargine 25 unit 12/05/24 08:30 12/05/24 20:33 Insulin Glargine (Lantus) 100 Unit/Ml Syr SQ 25 unit HS@2100 [facility] Administration Insulin Human Lispro 0 unit 12/03/24 17:30 12/05/24 20:33 Insulin Lispro (Humalog) 100 Unit/Ml 10 Ml Vl SQ 2 unit ACHS JORDYN Administration Protocol Lisinopril 10 mg 12/02/24 12:30 12/05/24 09:28 Lisinopril 10 Mg Tab PO 10 mg DAILY [facility] Administration Naloxone HCl 0.2 mg 12/01/24 23:22 Naloxone 0.4 Mg/Ml 1 Ml Vial IV Q2M PRN Opioid Reversal Ondansetron HCl 4 mg 12/01/24 23:22 Ondansetron 4 Mg/2 Ml Vial IVP Q8HR PRN Nausea And Vomiting Pantoprazole Sodium 40 mg 12/03/24 07:00 12/05/24 06:25 Pantoprazole 40 Mg Tablet PO 40 mg DAILY@0700 [facility] Administration Sertraline HCl 25 mg 12/03/24 08:00 12/05/24 09:28 Sertraline 25 Mg Tab PO 25 mg DAILY@0800 [facility] Administration Objective - Vital Signs Vital signs: Vital Signs Temp 97 F L 12/05/24 12:00 Pulse 61 12/05/24 12:00 Resp 18 12/05/24 12:00 BP 168/73 12/05/24 12:00 Pulse Ox 97 12/05/24 12:00 FiO2 Intake & Output 12/04/24 12/05/24 12/05/24 18:59 06:59 18:59 Intake Total 450 20 Output Total 550 600 850 Balance -100 600 830 Weight 101.3 kg Intake: IV 20 Invasive Line 3 20 Oral 450 Output: Urine 550 600 850 Other: Voiding Method External Catheter External Catheter External Catheter # Voids 1 - Exam -GENERAL: The patient is alert and oriented x3, not in any acute distress. Well developed, well nourished. Obese HEENT: Pupils are round and equally reacting to light. EOMI. No scleral icterus. No conjunctival pallor. Normocephalic, atraumatic. No pharyngeal erythema. No thyromegaly. CARDIOVASCULAR: S1 and S2 present. No murmurs, rubs, or gallops. PULMONARY: Chest is clear to auscultation, no wheezing , no crackles. ABDOMEN: Soft, nontender, nondistended, normoactive bowel sounds. No palpable organomegaly. MUSCULOSKELETAL: No joint swelling or deformity. -EXTREMITIES: No cyanosis, clubbing, or pedal edema. Left shoulder prominent and tender patient cannot raise her left arm above her head NEUROLOGICAL: Gross neurological examination did not reveal any focal deficits. SKIN: No rashes. no petechiae. - Labs CBC & Chem 7: 12/05/24 05:45 12/05/24 05:45 Labs: Abnormal Lab Results - Last 24 Hours (Table) 12/04/24 12/04/24 12/05/24 Range/Units 16:22 19:54 05:45 RBC 3.72 L (4.10-5.20) 10*6/uL Hgb 11.2 L (12.0-15.0) g/dL Hct 34.0 L (37.2-46.3) % Immature Gran # 0.09 H (0.00-0.04) 10*3/uL Sodium (137-145) mmol/L BUN (7-17) mg/dL Glucose (74-99) mg/dL POC Glucose (mg/dL) 291 H 157 H (70-110) mg/dL 12/05/24 12/05/24 Range/Units 05:45 06:02 RBC (4.10-5.20) 10*6/uL Hgb (12.0-15.0) g/dL Hct (37.2-46.3) % Immature Gran # (0.00-0.04) 10*3/uL Sodium 131 L (137-145) mmol/L BUN 41 H (7-17) mg/dL Glucose 58 L (74-99) mg/dL POC Glucose (mg/dL) 59 L (70-110) mg/dL Assessment and Plan Assessment: 1. Fall with left shoulder pain -X-ray of the shoulder reveals anterior dislocation of the humeral head relative to glenoid - Conscious sedation was done in ED and patient underwent closed reduction; postreduction x-ray was done which revealed improved anatomical alignment; patient's arm remains in sling -Orthopedic team consult: Recommended hip and pelvic x-ray showing osteoarthr itis with no fracture 2. Symptomatic bradycardia; patient is currently on Tenormin - Patient will be admitted to telemetry; hold Tenormin - Consult cardiology improved - 3. Hyperkalemia; currently not on any supplement; possibly associated with DESIRAE inhibitor use; will monitor. Improved. Switch to low potassium diet 4. Elevated liver enzymes - Total bilirubin elevated at 1.5 with mild elevation of AST/ALT; will repeat liver enzymes with further workup if continuing to trend 5. Hypertension; continue home dose of Norvasc 10 mg daily; hold atenolol; lisinopril 10 mg daily 6. Diabetes mellitus with long-term insulin use; continue home dose of Lantus 28 units SQ nightly; monitor Accu-Cheks q. CHS with insulin sliding scale 7. Depression; Zoloft 25 mg daily DVT prophylaxis; SCDs/Eliquis CODE STATUS; full code
[2024-12-06 06:07] LABS: Glucose,Whole Blood 68 mg/dL (70-110)
[2024-12-06 06:31] LABS: Glucose,Whole Blood 65 mg/dL (70-110)
[2024-12-06] MEDS: DEXTROSE 50% SYRINGE 50 ML IVP PRN ×2 (06:35→11:38)
[2024-12-06 06:58] LABS: Glucose,Whole Blood 136 mg/dL (70-110)
[2024-12-06] MEDS: APIXABAN 5 MG TAB PO SCH (09:12)
[2024-12-06 11:18] LABS: Glucose,Whole Blood 59 mg/dL (70-110)
[2024-12-06] MEDS: HYOSCYAMINE SULFATE 0.375 MG TAB.ER.12H PO SCH (11:38)
[2024-12-06 11:40] LABS: Glucose,Whole Blood 81 mg/dL (70-110)
--- NOTE | 2024-12-06 11:53 | P.PN ---
Subjective HISTORY OF PRESENT ILLNESS: 84-year-old female who presented from [facility] to [facility] ER because of left shoulder pain. It is unclear if patient had a fall at the facility. Patient is a poor historian and is not able to provide any history. However on examination she has large and significant ecchymosis on her left side of the body. She was also noticed to have left-sided shoulder dislocation which was fixed in the ER. Cardiology was consulted because patient has been noticed to be bradycardic during hospital stay with heart rates in 40s sinus bradycardia when she is resting. Admission Vitals: 161/61, heart rate 47 Admission Labs: Hb 12, sodium 130, potassium 5.7, BUN 43, creatinine 1.07, repeat BUN 38, creatinine 1.06, potassium 5 Admission EKG: Sinus bradycardia, 12/03/2024 Patient examined this morning in the emergency room. Patient currently denies chest pain or pressure. She denies shortness of breath. She denies any d izziness or lightheadedness. Telemetry revealed sinus mechanism with a heart rate in the 40s. Her atenolol remains on hold. 12/04/2024 Patient examined this morning the bedside. Patient without complaints of chest pain or shortness of breath. Telemetry reveals sinus mechanism with a heart rate in the 60s. 12/06/2024 Cardiology was reconsulted secondary to bradycardia. Patient has known history of bradycardia. Her atenolol was discontinued upon admission. Patient examined this morning at the bedside. Patient is sleepy this morning but easily arousable to verbal stimulation and able to answer questions. Upon awakening, patient's heart rate is in the 60s. When she is sleeping her heart rate is down into the 40s. PHYSICAL EXAM: VITAL SIGNS: Reviewed. GENERAL: Well-developed in no acute distress. NECK: Supple. No JVD or thyromegaly LUNGS: Respirations even and unlabored. Lungs essentially clear to auscultation bilaterally. HEART: Regular rate and rhythm. S1 and S2 heard. EXTREMITIES: Normal range of motion. No clubbing or cyanosis. Peripheral pulses intact. No lower extremity edema ASSESSMENT: Sinus bradycardia Questionable fall Paroxysmal atrial fibrillation Hypertension Hyperlipidemia History of CVA Diabetes Obesity: BMI 36.6 PLAN: Patient's bradycardia likely due to obstructive sleep apnea as her bradycardia is worsened when she is sleeping. Recommend outpatient sleep apnea evaluation. There is no indication for pacemaker implantation Add hyoscyamine 0.375 mg twice a day Continue anticoagulation with Eliquis Atenolol discontinued upon admission. Do not resume upon discharge. Continue to hold any AV yohannes blocking agents Continue telemetry monitoring Further recommendations pending patient course Patient to follow-up postdischarge with Dr. 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 Signing provider agrees with the documented findings, assessment, and plan of care documented by [employer] as a scribe. Objective - Vital Signs Vital signs: Vital Signs Temp 97.6 F 12/06/24 04:00 Pulse 48 L 12/06/24 08:00 Resp 16 12/06/24 08:00 BP 179/81 12/06/24 08:00 Pulse Ox 98 12/06/24 08:00 FiO2 Intake & Output 12/05/24 12/06/24 12/06/24 18:59 06:59 18:59 Intake Total 20 20 0 Output Total 850 400 Balance -830 20 -400 Weight 96.1 kg Intake: IV 20 20 Invasive Line 3 20 20 Oral 0 Output: Urine 850 400 Other: Voiding Method External Catheter External Catheter External Catheter # Voids 1 - Labs CBC & Chem 7: 12/05/24 05:45 12/05/24 05:45 Labs: Abnormal Lab Results - Last 24 Hours (Table) 12/02/24 12/05/24 12/05/24 Range/Units 11:00 16:21 20:09 POC Glucose (mg/dL) 119 H 224 H (70-110) mg/dL Myoglobin 71 H (<=58) ng/mL 12/06/24 12/06/24 12/06/24 Range/Units 06:06 06:30 06:56 POC Glucose (mg/dL) 68 L 65 L 136 H (70-110) mg/dL Myoglobin (<=58) ng/mL 12/06/24 Range/Units 11:17 POC Glucose (mg/dL) 59 L (70-110) mg/dL Myoglobin (<=58) ng/mL
[2024-12-06 12:11] LABS: Glucose,Whole Blood 90 mg/dL (70-110)
[2024-12-06] MEDS: DEXTROSE 50% SYRINGE 50 ML IVP STA (12:23)
[2024-12-06 12:25] LABS: VBG HCO3 28.0 mmol/L (24-28); VBG PCO2 50.0 mmHg (37-51); VBG PH 7.37 (7.31-7.41)
[2024-12-06 12:59] LABS: Basophils # (A) 0.03 10*3/uL (0.00-0.10); Basophils % (A) 0.4 %; Eosinophils # (A) 0.19 10*3/uL (0.04-0.35); Eosinophils % (A) 2.7 %; HCT 38.3 % (37.2-46.3); HGB 12.7 g/dL (12.0-15.0); Lymphocytes # (A) 2.21 10*3/uL (0.90-5.00); Lymphocytes % (A) 32.0 %; MCH 30.8 pg (27.0-32.0); MCHC 33.2 g/dL (32.0-37.0); MCV 93.0 fL (80.0-97.0); Monocytes # (A) 0.90 10*3/uL (0.20-1.00); Monocytes % (A) 13.0 %; Neutrophils # (A) 3.49 10*3/uL (1.80-7.70); Neutrophils % (A) 50.6 %; Platelet Count 433 10*3/uL (140-440); RBC 4.12 10*6/uL (4.10-5.20); RDW 14.4 % (11.5-14.5); WBC 6.91 10*3/uL (4.50-10.00)
[2024-12-06 13:14] LABS: ALT 34 U/L (4-34); African American GFR (CKD) 65 (>60 ml/min/1.73 sqM); Albumin 3.2 g/dL (3.5-5.0); Anion Gap 4 mmol/L; Bilirubin, Delta 0.3 mg/dL (0.0-0.2); Bilirubin,Unconjugated 1.2 mg/dL (0.0-1.1); Blood Urea Nitrogen 34 mg/dL (7-17); Calcium 10.1 mg/dL (8.4-10.2); Carbon Dioxide 26 mmol/L (22-30); Chloride 102 mmol/L (98-107); Glucose 87 mg/dL (74-99); Non-African American GFR(CKD) 57 (>60 ml/min/1.73 sqM); Sodium 132 mmol/L (137-145); Total Protein 5.7 g/dL (6.3-8.2)
--- NOTE | 2024-12-06 13:29 | CT ---
EXAMINATION TYPE: CT brain wo con CT DLP: 1170.4 mGycm, Automated exposure control for dose reduction was used. DATE OF EXAM: 12/06/2024 1:17 PM COMPARISON: CT brain C-spine 12/01/2024, MRI brain 10/23/2021, CT brain 10/21/2021 CLINICAL INDICATION:Female, 84 years old with history of ams, AMS TECHNIQUE: Brain: Multiple axial CT images of the brain were obtained without IV contrast. . Coronal and sagitta l reformats reviewed. FINDINGS: Brain: Extra-axial spaces: No abnormal extra-axial fluid collections. Ventricular system: Similar mild hydrocephalus. Cerebral parenchyma: Cerebral atrophy. No acute intraparenchymal hemorrhage or mass effect. The hwang -white junction is well differentiated. Confluent hypoattenuating areas are seen within the periventr icular and subcortical white matter. Cerebellum: Unremarkable. Mass effect: No evidence of midline shift. Intracranial vasculature: Atherosclerotic calcifications of the intracranial vessels. Soft tissues: Normal. Calvarium/osseous structures: No depressed skull fracture. Paranasal sinuses and mastoid air cells: Right mastoid air cells are clear. Partial opacification of the inferior left mastoid air cells again. The paranasal sinuses are clear. Visualized orbits: Bilateral aphakia IMPRESSION: 1. No acute intracranial bleed. No significant change from prior exam. 2. Similar mild hydrocephalus which is probably related to level of cerebral atrophy with normal pres sure hydrocephalus not excluded. Correlate clinically. 3. Nonspecific advanced white matter changes, likely secondary to chronic small vessel ischemic disea se. 4. Chronic left mastoid effusion. [facility], , 12/06/2024 1:27 PM
[2024-12-06 13:54] LABS: Glucose,Whole Blood 147 mg/dL (70-110)
[2024-12-06 13:56] LABS: AST 58 U/L (14-36); Alkaline Phosphatase 148 U/L (38-126); Magnesium 2.0 mg/dL (1.6-2.3); Potassium 5.3 mmol/L (3.5-5.1)
[2024-12-06 15:02] LABS: Bilirubin,Urine Negative (Negative); Blood,Urine Negative (Negative); Color,Urine Colorless; Glucose,Urine (UA) Negative (Negative); Ketones,Urine Negative (Negative); Leukocyte Esterase,Urine Negative (Negative); Nitrite,Urine Negative (Negative); PH, Urine 5.5 (5.0-8.0); Protein,Urine Negative (Negative); Specific Gravity,Urine 1.006 (1.001-1.035); Urobilinogen,Urine <2.0 mg/dL (<2.0)
[2024-12-06 16:26] LABS: Glucose,Whole Blood 125 mg/dL (70-110)
[2024-12-06 20:35] LABS: Glucose,Whole Blood 198 mg/dL (70-110)
--- NOTE | 2024-12-06 20:37 | P.PN ---
Subjective 84-year-old female sent from [facility] for increased bruising on left side. Patient is a poor historian and says she fell last week but is unsure how. She cannot specifically remember any falls or injuries. She is complaining of left shoulder pain however is unsure when this started. Denies chest pain, shortness of breath, abdominal pain, headache, vision changes. She is on thinners. She was recently admitted approximately 2 weeks ago for weakness and multiple falls at which time she was placed at [facility]. Patient has a history remarkable for atrial fibrillation, CVA, diabetes mellitus, hypertension, hyperlipidemia. In the ED heart rate is found to be in the 40s however patient is asymptomatic. Blood pressure 129/82. On physical examination there is diffuse left-sided bruising. Neurovascularly intact to all extremities. -Left shoulder x-ray reveals questionable anterior dislocation of the humeral head relative the glenoid. -CT chest/abdomen/pelvis reveals no acute traumatic process. CT brain and C- spine reveals no acute process. In the ED conscious sedation performed for closed reduction, postreduction x- rays revealed improved anatomical alignment. Patient was placed in a sling. Patient will be admitted to medicine for bradycardia with cardiology consult. 12/03 This is a pleasant 84 years old female who presents from [facility] for increased bruise on the left side. There is reports of falling last week with left shoulder pain. Also patient was found to have heart rate in 40s Patient close reduction of her left anterior dislocated shoulder, she still have some pain tenderness and deformity in her left shoulders with limitation of movement therefore we are going to consult orthopedic team Patient heart rate in 40s and low 50s, currently asymptomatic no chest pain dyspnea or dizziness. She was on metoprolol 25 mg 3 times daily which is currently on hold Repeat shoulder x-ray yesterday showing close reduction of the shoulder pretty well CT of the head and neck showing no acute process and CT of the chest abdominal pelvis showing cardiomegaly small bilateral pleural effusion with no a cute abnormality. I reviewed the images by myself and agree. Cardiology following closely. We are going to consult orthopedic team 12/04 Patient heart rate is improved and currently in 60s, patient with no symptom cardiology following closely Patient still complaining from her left shoulder pain which is looks somewhat controlled, movement little better less deformity her sling is in place We are pending for orthopedic evaluation who saw the patient later on today and recommended hip and pelvic x-ray showing bilateral osteoarthritis of the hips but it is mild associated with no displaced fractures. Patient also complains from extensive bruise in her left breast and left chest down to the abdomen secondary to her shoulder problem We may hold 1 or 2 doses of Eliquis. Also patient on aspirin 81 mg Hemoglobin A1c is 8.8, patient is on Lantus 28 units. Patient cannot tolerate metformin because of GI symptom. Patient would be benefit from outpatient follow-up with meter maker. 12/05 Patient clinically doing well and is improving Her main complaint is her left shoulder. Denies any other new complaint no chest pain dyspnea or dizziness Heart rate is improved in 60s after holding metoprolol and currently patient is asymptomatic regarding this Cardiology signed off the case Orthopedic team evaluated the patient and cleared her for discharge with recommendation for close outpatient follow-up in 1 to 2 weeks But time she was not clear it was late for the patient to go back to her group home. Possible discharge tomorrow morning Resume Eliquis tomorrow morning Her glucose was on the low side we lowered the dose of Lantus 28 units down to 25 units with close monitoring. Glucose gel as needed for hypoglycemia 12/06 This morning I was paged by the nurse that patient is becoming more bradycardic and heart rate dropped to 30s, cardiology team reconsulted. Hyoscyamine was a dded Patient is more sleepy today Currently blood pressure 179/81. Patient is afebrile. Sugar was on the low side 68 136, 59 and 81. We will give her one-time dose of D50 percent Repeat all labs today including ammonia levels venous blood gas. Check urinalysis and urine culture. Will repeat CT of the brain Daughter at bedside I discussed the plan with her. She verbalized understanding acceptance Continue with aspirin and Plavix. Continue with hyoscyamine added by cardiology team Continue with blood pressure medications close monitoring 12/06 I came early intervention specialist to see the patient she was more obtained none waking up for tactile or verbal stimuli, she mumbles only does not open her eyes or follow command does not answer questions. She just sleeps in the bed, daughter at bedside, CT of the brain ordered stat which came back negative for acute process. Also we did extensive workup including blood test CBC BMP LFT With sodium 132, potassium 5.3 BUN 34 creatinine 0.9, lactic acid 0.8 Urinalysis normal. Bilirubin 1.5, liver enzymes very mildly elevated. Procalcitonin is negative less than 0.20. Bladder scan showing bladder retention more than 500 cc and Guerra catheter was placed. Her blood pressure was mildly elevated with systolic 1 7180 improved to 1 1:30 pill of oral hydralazine 25 mg and now stable. As sugar was noticed low in the morning she was given dextrose 50 ampoule x 1, her sugar improved to 120s and her mentation improved, I can see her again now she is awake answers my questions complaining from pain in her upper back and headache but she looks calm not in distress. She has some mild bruise behind her ear but no overt bruising new, she still has extensive bruise in her left breast left side of the chest down to the left side of the abdomen. Patient remains on aspirin started by cardiology on Eliquis 5 mg. On checking her in the evening she was still doing well She has hypothermia and started on Luis hugger Plan of care discussed with the patient daughter and she is agreeable. Active Medications Generic Name Dose Route Start Last Admin Trade Name Freq PRN Reason Stop Dose Admin Acetaminophen 650 mg 12/02/24 17:54 12/05/24 20:32 Acetaminophen Tab 325 Mg Tab PO 650 mg Q6HR PRN Administration Fever and/ or Pain Amlodipine Besylate 10 mg 12/03/24 12:00 12/05/24 12:16 Amlodipine 10 Mg Tab PO 10 mg DAILY@1200 JORDYN Administration Apixaban 5 mg 12/06/24 09:00 12/06/24 09:12 Apixaban 5 Mg Tab PO 5 mg BID JORDYN Administration Protocol Aspirin 81 mg 12/02/24 12:30 12/06/24 09:12 Aspirin 81 Mg PO 81 mg DAILY JORDYN Administration Dextrose/Water 25 ml 12/03/24 13:42 12/06/24 06:35 Dextrose 50% Syringe 50 Ml IVP 25 ml PER PROTOCOL PRN Administration Hypoglycemia Protocol Dextrose/Water 50 ml 12/03/24 13:42 Dextrose 50% Syringe 50 Ml IVP PER PROTOCOL PRN Hypoglycemia Protocol Dextrose/Water 50 ml 12/06/24 11:55 Dextrose 50% Syringe 50 Ml IVP 12/06/24 11:56 ONCE STA Furosemide 10 mg 12/05/24 12:00 12/05/24 12:16 Furosemide 10 Mg Tab PO 10 mg DAILY@1200 JORDYN Administration Glucose 15 gm 12/06/24 00:22 Dextrose Gel 15 Gm/37.5 Ml Tube PO TID PRN Blood Sugar - Low Hyoscyamine 0.375 mg 12/06/24 09:30 12/06/24 11:38 Hyoscyamine Sulfate 0.375 Mg Tab.Er.12h PO 0.375 mg BID [facility] Administration Insulin Glargine 25 unit 12/05/24 08:30 12/05/24 20:33 Insulin Glargine (Lantus) 100 Unit/Ml Syr SQ 25 unit HS@2100 [facility] Administration Insulin Human Lispro 0 unit 12/03/24 17:30 12/06/24 06:17 Insulin Lispro (Humalog) 100 Unit/Ml 10 Ml Vl SQ Not Given ACHS [facility] Protocol Lisinopril 10 mg 12/02/24 12:30 12/06/24 09:12 Lisinopril 10 Mg Tab PO 10 mg DAILY [facility] Administration Naloxone HCl 0.2 mg 12/01/24 23:22 Naloxone 0.4 Mg/Ml 1 Ml Vial IV Q2M PRN Opioid Reversal Ondansetron HCl 4 mg 12/01/24 23:22 Ondansetron 4 Mg/2 Ml Vial IVP Q8HR PRN Nausea And Vomiting Pantoprazole Sodium 40 mg 12/03/24 07:00 12/06/24 06:17 Pantoprazole 40 Mg Tablet PO Not Given DAILY@0700 [facility] Objective - Vital Signs Vital signs: Vital Signs Temp 97.6 F 12/06/24 04:00 Pulse 48 L 12/06/24 08:00 Resp 16 12/06/24 08:00 BP 179/81 12/06/24 08:00 Pulse Ox 98 12/06/24 08:00 FiO2 Intake & Output 12/05/24 12/06/24 12/06/24 18:59 06:59 18:59 Intake Total 20 20 0 Output Total 850 400 Balance -830 20 -400 Weight 96.1 kg Intake: IV 20 20 Invasive Line 3 20 20 Oral 0 Output: Urine 850 400 Other: Voiding Method External Catheter External Catheter External Catheter # Voids 1 - Exam -GENERAL: The patient is alert and more sleepy , not in any acute distress. Well developed, well nourished. Obese HEENT: Pupils are round and equally reacting to light. EOMI. No scleral icterus. No conjunctival pallor. Normocephalic, atraumatic. No pharyngeal erythema. No thyromegaly. CARDIOVASCULAR: S1 and S2 present. No murmurs, rubs, or gallops. PULMONARY: Chest is clear to auscultation, no wheezing , no crackles. ABDOMEN: Soft, nontender, nondistended, normoactive bowel sounds. No palpable organomegaly. MUSCULOSKELETAL: No joint swelling or deformity. -EXTREMITIES: No cyanosis, clubbing, or pedal edema. Left shoulder prominent and tender patient cannot raise her left arm above her head NEUROLOGICAL: Gross neurological examination did not reveal any focal deficits. SKIN: No rashes. no petechiae. - Labs CBC & Chem 7: 12/06/24 12:45 12/06/24 12:11 Labs: Abnormal Lab Results - Last 24 Hours (Table) 12/02/24 12/05/24 12/05/24 Range/Units 11:00 16:21 20:09 POC Glucose (mg/dL) 119 H 224 H (70-110) mg/dL Myoglobin 71 H (<=58) ng/mL 12/06/24 12/06/24 12/06/24 Range/Units 06:06 06:30 06:56 POC Glucose (mg/dL) 68 L 65 L 136 H (70-110) mg/dL Myoglobin (<=58) ng/mL 12/06/24 Range/Units 11:17 POC Glucose (mg/dL) 59 L (70-110) mg/dL Myoglobin (<=58) ng/mL Assessment and Plan Assessment: 1. Fall with left shoulder pain -X-ray of the shoulder reveals anterior dislocation of the humeral head relative to glenoid - Conscious sedation was done in ED and patient underwent closed reduction; postreduction x-ray was done which revealed improved anatomical alignment; p atient's arm remains in sling -Orthopedic team consult: Recommended hip and pelvic x-ray showing ost eoarthritis with no fracture 2. Symptomatic bradycardia; patient is currently on Tenormin - Patient will be admitted to telemetry; hold Tenormin - Consult cardiology improved -Hyosine was added by cardiology on 12/06 3. Hyperkalemia; currently not on any supplement; possibly associated with DEISRAE inhibitor use; will monitor. Improved. Switch to low potassium diet 4. Elevated liver enzymes - Total bilirubin elevated at 1.5 with mild elevation of AST/ALT; will repeat liver enzymes with further workup if continuing to trend 5. Hypertension; continue home dose of Norvasc 10 mg daily; hold atenolol; lisinopril 10 mg daily 6. Diabetes mellitus with long-term insulin use; continue home dose of Lantus 28 units SQ nightly; monitor Accu-Cheks q. CHS with insulin sliding scale 7. Depression; Zoloft 25 mg daily 8. Metabolic encephalopathy versus altered mental status. Ordered urgent CT of the brain to rule out intracranial bleed/stroke, check ammonia level venous blood gas and all labs. Check urine analysis. Continue with neurocheck if no improvement will consider further workup or consult prognosis is guarded 9. Acute urinary retention status post Guerra catheter. Start Flomax. Urinalysis is benign 10. Hyponatremia noticed on 12/06 s/p Luis epstein, slowly improving. Check serum cortisol in the morning DVT prophylaxis; SCDs/Eliquis CODE STATUS; full code
[2024-12-06] MEDS: TAMSULOSIN 0.4 MG CAP.ER.24H PO SCH (21:59)
[2024-12-06] MEDS: INSULIN GLARGINE (LANTUS) 100 UNIT/ML SYR SQ SCH (21:59)
[2024-12-07] MEDS: KETOROLAC 15 MG/ML 1 ML VIAL IVP STA (00:13)
[2024-12-07 06:07] LABS: Glucose,Whole Blood 50 mg/dL (70-110)
[2024-12-07 06:30] LABS: Glucose,Whole Blood 55 mg/dL (70-110)
[2024-12-07 06:48] LABS: Glucose,Whole Blood 82 mg/dL (70-110)
[2024-12-07 08:49] LABS: Basophils # (A) 0.04 10*3/uL (0.00-0.10); Basophils % (A) 0.6 %; Eosinophils # (A) 0.15 10*3/uL (0.04-0.35); Eosinophils % (A) 2.3 %; HCT 31.2 % (37.2-46.3); HGB 10.2 g/dL (12.0-15.0); Lymphocytes # (A) 1.68 10*3/uL (0.90-5.00); Lymphocytes % (A) 25.5 %; MCH 30.6 pg (27.0-32.0); MCHC 32.7 g/dL (32.0-37.0); MCV 93.7 fL (80.0-97.0); Monocytes # (A) 0.79 10*3/uL (0.20-1.00); Monocytes % (A) 12.0 %; Neutrophils # (A) 3.85 10*3/uL (1.80-7.70); Neutrophils % (A) 58.5 %; Platelet Count 371 10*3/uL (140-440); RBC 3.33 10*6/uL (4.10-5.20); RDW 14.7 % (11.5-14.5); WBC 6.58 10*3/uL (4.50-10.00)
[2024-12-07 09:04] LABS: African American GFR (CKD) 58 (>60 ml/min/1.73 sqM); Anion Gap 8 mmol/L; Blood Urea Nitrogen 40 mg/dL (7-17); Calcium 9.1 mg/dL (8.4-10.2); Carbon Dioxide 22 mmol/L (22-30); Chloride 97 mmol/L (98-107); Glucose 226 mg/dL (74-99); Non-African American GFR(CKD) 51 (>60 ml/min/1.73 sqM); Potassium 5.4 mmol/L (3.5-5.1); Sodium 127 mmol/L (137-145)
[2024-12-07 09:14] VITALS: BMI 41.1
--- NOTE | 2024-12-07 11:24 | P.PN ---
Subjective HISTORY OF PRESENT ILLNESS: 84-year-old female who presented from [facility] to [facility] ER because of left shoulder pain. It is unclear if patient had a fall at the facility. Patient is a poor historian and is not able to provide any history. However on examination she has large and significant ecchymosis on her left side of the body. She was also noticed to have left-sided shoulder dislocation which was fixed in the ER. Cardiology was consulted because patient has been noticed to be bradycardic during hospital stay with heart rates in 40s sinus bradycardia when she is resting. Admission Vitals: 161/61, heart rate 47 Admission Labs: Hb 12, sodium 130, potassium 5.7, BUN 43, creatinine 1.07, repeat BUN 38, creatinine 1.06, potassium 5 Admission EKG: Sinus bradycardia, 12/03/2024 Patient examined this morning in the emergency room. Patient currently denies chest pain or pressure. She denies shortness of breath. She denies any d izziness or lightheadedness. Telemetry revealed sinus mechanism with a heart rate in the 40s. Her atenolol remains on hold. 12/04/2024 Patient examined this morning the bedside. Patient without complaints of chest pain or shortness of breath. Telemetry reveals sinus mechanism with a heart rate in the 60s. 12/06/2024 Cardiology was reconsulted secondary to bradycardia. Patient has known history of bradycardia. Her atenolol was discontinued upon admission. Patient examined this morning at the bedside. Patient is sleepy this morning but easily arousable to verbal stimulation and able to answer questions. Upon awakening, patient's heart rate is in the 60s. When she is sleeping her heart rate is down into the 40s. 12/07/2024 Patient examined this morning at the bedside. Patient currently denies chest pain or pressure. She denies shortness of breath. Her rate is in the 60s. PHYSICAL EXAM: VITAL SIGNS: Reviewed. GENERAL: Well-developed in no acute distress. NECK: Supple. No JVD or thyromegaly LUNGS: Respirations even and unlabored. Lungs essentially clear to auscultation bilaterally. HEART: Regular rate and rhythm. S1 and S2 heard. EXTREMITIES: Normal range of motion. No clubbing or cyanosis. Peripheral pulses intact. No lower extremity edema ASSESSMENT: Sinus bradycardia Questionable fall Paroxysmal atrial fibrillation Hypertension Hyperlipidemia History of CVA Diabetes Obesity: BMI 36.6 PLAN: Patient's bradycardia likely due to obstructive sleep apnea as her bradycardia is worsened when she is sleeping. Recommend outpatient sleep apnea evaluation. There is no indication for pacemaker implantation Continue hyoscyamine 0.375 mg twice a day Continue anticoagulation with Eliquis Atenolol discontinued upon admission. Do not resume upon discharge. Continue to hold any AV yohannes blocking agents Continue telemetry monitoring Patient to follow-up postdischarge with Dr. Gongora as she does not currently follow with a log peeler No further inpatient recommendations from a cardiac standpoint We will sign off. Please reconsult if needed. Nurse practitioner note has been reviewed by physician. Signing provider agrees with the documented findings, assessment, and plan of care documented by PASTRY MIXER as a scribe. Objective - Vital Signs Vital signs: Vital Signs Temp 97.6 F 12/07/24 08:00 Pulse 69 12/07/24 08:00 Resp 17 12/07/24 08:00 BP 138/63 12/07/24 08:00 Pulse Ox 95 12/07/24 08:00 FiO2 Intake & Output 12/06/24 12/07/24 12/07/24 18:59 06:59 18:59 Intake Total 90 0 Output Total 830 600 175 Balance -740 -600 -175 Weight 102.1 kg 102.1 kg Intake: Oral 90 0 Output: Urine 830 600 175 Other: Voiding Method External Catheter Indwelling Catheter Indwelling Catheter # Voids 0 - Labs CBC & Chem 7: 12/07/24 08:31 12/07/24 08:31 Labs: Abnormal Lab Results - Last 24 Hours (Table) 12/06/24 12/06/24 12/06/24 Range/Units 12:11 12:45 13:53 RBC (4.10-5.20) 10*6/uL Hgb (12.0-15.0) g/dL Hct (37.2-46.3) % Immature Gran # 0.09 H (0.00-0.04) 10*3/uL Sodium 132 L (137-145) mmol/L Potassium 5.3 H (3.5-5.1) mmol/L Chloride (98-107) mmol/L BUN 34 H (7-17) mg/dL Glucose (74-99) mg/dL POC Glucose (mg/dL) 147 H (70-110) mg/dL Total Bilirubin 1.5 H (0.2-1.3) mg/dL Unconjugated Bilirubin 1.2 H (0.0-1.1) mg/dL Delta Bilirubin 0.3 H (0.0-0.2) mg/dL AST 58 H (14-36) U/L Alkaline Phosphatase 148 H (38-126) U/L Total Protein 5.7 L (6.3-8.2) g/dL Albumin 3.2 L (3.5-5.0) g/dL 12/06/24 12/06/24 12/07/24 Range/Units 16:24 20:29 06:06 RBC (4.10-5.20) 10*6/uL Hgb (12.0-15.0) g/dL Hct (37.2-46.3) % Immature Gran # (0.00-0.04) 10*3/uL Sodium (137-145) mmol/L Potassium (3.5-5.1) mmol/L Chloride (98-107) mmol/L BUN (7-17) mg/dL Glucose (74-99) mg/dL POC Glucose (mg/dL) 125 H 198 H 50 L (70-110) mg/dL Total Bilirubin (0.2-1.3) mg/dL Unconjugated Bilirubin (0.0-1.1) mg/dL Delta Bilirubin (0.0-0.2) mg/dL AST (14-36) U/L Alkaline Phosphatase (38-126) U/L Total Protein (6.3-8.2) g/dL Albumin (3.5-5.0) g/dL 12/07/24 12/07/24 12/07/24 Range/Units 06:26 08:31 08:31 RBC 3.33 L (4.10-5.20) 10*6/uL Hgb 10.2 L (12.0-15.0) g/dL Hct 31.2 L (37.2-46.3) % Immature Gran # 0.07 H (0.00-0.04) 10*3/uL Sodium 127 L (137-145) mmol/L Potassium 5.4 H (3.5-5.1) mmol/L Chloride 97 L (98-107) mmol/L BUN 40 H (7-17) mg/dL Glucose 226 H (74-99) mg/dL POC Glucose (mg/dL) 55 L (70-110) mg/dL Total Bilirubin (0.2-1.3) mg/dL Unconjugated Bilirubin (0.0-1.1) mg/dL Delta Bilirubin (0.0-0.2) mg/dL AST (14-36) U/L Alkaline Phosphatase (38-126) U/L Total Protein (6.3-8.2) g/dL Albumin (3.5-5.0) g/dL
[2024-12-07 11:50] LABS: Glucose,Whole Blood 189 mg/dL (70-110)
[2024-12-07 16:25] LABS: Glucose,Whole Blood 154 mg/dL (70-110)
--- NOTE | 2024-12-07 17:21 | XR ---
EXAMINATION TYPE: XR shoulder limited LT DATE OF EXAM: 12/07/2024 5:11 PM COMPARISON: Prior shoulder radiograph 12/01/2024. CLINICAL INDICATION: Female, 84 years old with history of previous displacment and reduction/ pain; P HH, pain TECHNIQUE: XR shoulder limited LT; examined in AP, internally rotated and scapular Y projections. FINDINGS: There is new cortical step-off in the region of the surgical neck suspicious for minimally displaced humeral fracture. There is persistent apparent anterior dislocation/subluxation of the humeral head r elative to the glenoid. IMPRESSION: 1. New cortical step off suspicious for acute minimally displaced fracture involving the left luanne l head/neck junction. 2. Persistent anterior subluxation or dislocation of the humeral head relative to the glenoid. [facility], , 12/07/2024 5:19 PM
[2024-12-07 20:16] LABS: Glucose,Whole Blood 211 mg/dL (70-110)
[2024-12-07] MEDS: INSULIN GLARGINE (LANTUS) 100 UNIT/ML SYR SQ SCH (20:17)
--- NOTE | 2024-12-07 23:58 | P.PN ---
Subjective 84-year-old female sent from [facility] for increased bruising on left side. Patient is a poor historian and says she fell last week but is unsure how. She cannot specifically remember any falls or injuries. She is complaining of left shoulder pain however is unsure when this started. Denies chest pain, shortness of breath, abdominal pain, headache, vision changes. She is on thinners. She was recently admitted approximately 2 weeks ago for weakness and multiple falls at which time she was placed at [facility]. Patient has a history remarkable for atrial fibrillation, CVA, diabetes mellitus, hypertension, hyperlipidemia. In the ED heart rate is found to be in the 40s however patient is asymptomatic. Blood pressure 129/82. On physical examination there is diffuse left-sided bruising. Neurovascularly intact to all extremities. -Left shoulder x-ray reveals questionable anterior dislocation of the humeral head relative the glenoid. -CT chest/abdomen/pelvis reveals no acute traumatic process. CT brain and C- spine reveals no acute process. In the ED conscious sedation performed for closed reduction, postreduction x- rays revealed improved anatomical alignment. Patient was placed in a sling. Patient will be admitted to medicine for bradycardia with cardiology consult. 12/03 This is a pleasant 84 years old female who presents from [place] for increased bruise on the left side. There is reports of falling last week with left shoulder pain. Also patient was found to have heart rate in 40s Patient close reduction of her left anterior dislocated shoulder, she still have some pain tenderness and deformity in her left shoulders with limitation of movement therefore we are going to consult orthopedic team Patient heart rate in 40s and low 50s, currently asymptomatic no chest pain dyspnea or dizziness. She was on metoprolol 25 mg 3 times daily which is currently on hold Repeat shoulder x-ray yesterday showing close reduction of the shoulder pretty well CT of the head and neck showing no acute process and CT of the chest abdominal pelvis showing cardiomegaly small bilateral pleural effusion with no a cute abnormality. I reviewed the images by myself and agree. Cardiology following closely. We are going to consult orthopedic team 12/04 Patient heart rate is improved and currently in 60s, patient with no symptom cardiology following closely Patient still complaining from her left shoulder pain which is looks somewhat controlled, movement little better less deformity her sling is in place We are pending for orthopedic evaluation who saw the patient later on today and recommended hip and pelvic x-ray showing bilateral osteoarthritis of the hips but it is mild associated with no displaced fractures. Patient also complains from extensive bruise in her left breast and left chest down to the abdomen secondary to her shoulder problem We may hold 1 or 2 doses of Eliquis. Also patient on aspirin 81 mg Hemoglobin A1c is 8.8, patient is on Lantus 28 units. Patient cannot tolerate metformin because of GI symptom. Patient would be benefit from outpatient follow-up with inside sales advisor. 12/05 Patient clinically doing well and is improving Her main complaint is her left shoulder. Denies any other new complaint no chest pain dyspnea or dizziness Heart rate is improved in 60s after holding metoprolol and currently patient is asymptomatic regarding this Cardiology signed off the case Orthopedic team evaluated the patient and cleared her for discharge with recommendation for close outpatient follow-up in 1 to 2 weeks But time she was not clear it was late for the patient to go back to her [facility] living. Possible discharge tomorrow morning Resume Eliquis tomorrow morning Her glucose was on the low side we lowered the dose of Lantus 28 units down to 25 units with close monitoring. Glucose gel as needed for hypoglycemia 12/06 This morning I was paged by the nurse that patient is becoming more bradycardic and heart rate dropped to 30s, cardiology team reconsulted. Hyoscyamine was a dded Patient is more sleepy today Currently blood pressure 179/81. Patient is afebrile. Sugar was on the low side 68 136, 59 and 81. We will give her one-time dose of D50 percent Repeat all labs today including ammonia levels venous blood gas. Check urinalysis and urine culture. Will repeat CT of the brain Daughter at bedside I discussed the plan with her. She verbalized understanding acceptance Continue with aspirin and Plavix. Continue with hyoscyamine added by cardiology team Continue with blood pressure medications close monitoring 12/06 I came sign manufacturer to see the patient she was more obtained none waking up for tactile or verbal stimuli, she mumbles only does not open her eyes or follow command does not answer questions. She just sleeps in the bed, daughter at bedside, CT of the brain ordered stat which came back negative for acute process. Also we did extensive workup including blood test CBC BMP LFT With sodium 132, potassium 5.3 BUN 34 creatinine 0.9, lactic acid 0.8 Urinalysis normal. Bilirubin 1.5, liver enzymes very mildly elevated. Procalcitonin is negative less than 0.20. Bladder scan showing bladder retention more than 500 cc and Guerra catheter was placed. Her blood pressure was mildly elevated with systolic 1 7180 improved to 1 1:30 pill of oral hydralazine 25 mg and now stable. As sugar was noticed low in the morning she was given dextrose 50 ampoule x 1, her sugar improved to 120s and her mentation improved, I can see her again now she is awake answers my questions complaining from pain in her upper back and headache but she looks calm not in distress. She has some mild bruise behind her ear but no overt bruising new, she still has extensive bruise in her left breast left side of the chest down to the left side of the abdomen. Patient remains on aspirin started by cardiology on Eliquis 5 mg. On checking her in the evening she was still doing well She has hypothermia and started on Luis hugger Plan of care discussed with the patient daughter and she is agreeable. 12/07 Patient mentation is back to normal today, fully awake and oriented at baseline and this is confirmed by the daughter at bedside which have the same impression Patient main complaint in her left shoulder pain, patient thinks is still dislocated and she was requesting herself to repeat the shoulder x-ray which showed persistent subluxation/dislocation of the left shoulder and a new minimally displaced left humeral head fracture. This information was discussed with orthopedic team with Dr. Daly who informed staff no need for any surgical intervention and continue monitoring. Patient using the sling when she is up from bed as instructed Patient delirium yesterday was thought secondary to multifactorial for example urinary retention status post Guerra catheter but the main culprit thought was the hypoglycemia, initially she was on Lantus 28 units we have to drop it down gradually to 25 units and yesterday down to 20 units and despite that this mo rning her glucose was still on the low side at 50s indicating that probably patient problems were due to hypoglycemia as well, we lowered the Lantus tonight to 15 units with close monitoring Our cardiology team recommended to continue hyoscyamine and follow-up outpatient with Dr. Gongora. Discontinue atenolol upon discharge and the sign of the case Active Medications Generic Name Dose Route Start Last Admin Trade Name Freq PRN Reason Stop Dose Admin Acetaminophen 650 mg 12/02/24 17:54 12/07/24 17:45 Acetaminophen Tab 325 Mg Tab PO 650 mg Q6HR PRN Administration Fever and/ or Pain Amlodipine Besylate 10 mg 12/03/24 12:00 12/07/24 11:27 Amlodipine 10 Mg Tab PO 10 mg DAILY@1200 JORDYN Administration Apixaban 5 mg 12/06/24 09:00 12/07/24 20:16 Apixaban 5 Mg Tab PO 5 mg BID JORDYN Administration Protocol Aspirin 81 mg 12/02/24 12:30 12/07/24 09:11 Aspirin 81 Mg PO 81 mg DAILY JORDYN Administration Dextrose/Water 25 ml 12/03/24 13:42 12/06/24 06:35 Dextrose 50% Syringe 50 Ml IVP 25 ml PER PROTOCOL PRN Administration Hypoglycemia Protocol Dextrose/Water 50 ml 12/03/24 13:42 Dextrose 50% Syringe 50 Ml IVP PER PROTOCOL PRN Hypoglycemia Protocol Furosemide 10 mg 12/05/24 12:00 12/07/24 11:27 Furosemide 10 Mg Tab PO 10 mg DAILY@1200 [facility] Administration Glucose 15 gm 12/06/24 00:22 Dextrose Gel 15 Gm/37.5 Ml Tube PO TID PRN Blood Sugar - Low Hyoscyamine 0.375 mg 12/06/24 09:30 12/07/24 20:16 Hyoscyamine Sulfate 0.375 Mg Tab.Er.12h PO 0.375 mg BID JORDYN Administration Insulin Glargine 15 unit 12/07/24 21:00 12/07/24 20:17 Insulin Glargine (Lantus) 100 Unit/Ml Syr SQ 15 unit HS@2100 [facility] Administration Insulin Human Lispro 0 unit 12/03/24 17:30 12/07/24 20:17 Insulin Lispro (Humalog) 100 Unit/Ml 10 Ml Vl SQ 2 unit ACHS JORDYN Administration Protocol Lisinopril 10 mg 12/02/24 12:30 12/07/24 09:11 Lisinopril 10 Mg Tab PO 10 mg DAILY JORDYN Administration Naloxone HCl 0.2 mg 12/01/24 23:22 Naloxone 0.4 Mg/Ml 1 Ml Vial IV Q2M PRN Opioid Reversal Ondansetron HCl 4 mg 12/01/24 23:22 Ondansetron 4 Mg/2 Ml Vial IVP Q8HR PRN Nausea And Vomiting Pantoprazole Sodium 40 mg 12/03/24 07:00 12/07/24 06:22 Pantoprazole 40 Mg Tablet PO 40 mg DAILY@0700 JORDYN Administration Tamsulosin HCl 0.4 mg 12/06/24 20:45 12/07/24 17:45 Tamsulosin 0.4 Mg Cap.Er.24h PO 0.4 mg PC-SUPPER JORDYN Administration Objective - Vital Signs Vital signs: Vital Signs Temp 97.7 F 12/07/24 12:00 Pulse 75 12/07/24 12:00 Resp 16 12/07/24 12:00 BP 122/66 12/07/24 12:00 Pulse Ox 97 12/07/24 12:00 FiO2 Intake & Output 12/06/24 12/07/24 12/07/24 18:59 06:59 18:59 Intake Total 90 118 Output Total 830 600 350 Balance -240 -600 -299 Weight 102.1 kg 102.1 kg Intake: Oral 90 118 Output: Urine 830 600 350 Other: Voiding Method External Catheter Indwelling Catheter Indwelling Catheter # Voids 0 - Exam -GENERAL: The patient is alert and more sleepy , not in any acute distress. Well developed, well nourished. Obese HEENT: Pupils are round and equally reacting to light. EOMI. No scleral icterus. No conjunctival pallor. Normocephalic, atraumatic. No pharyngeal erythema. No thyromegaly. CARDIOVASCULAR: S1 and S2 present. No murmurs, rubs, or gallops. PULMONARY: Chest is clear to auscultation, no wheezing , no crackles. ABDOMEN: Soft, nontender, nondistended, normoactive bowel sounds. No palpable organomegaly. MUSCULOSKELETAL: No joint swelling or deformity. -EXTREMITIES: No cyanosis, clubbing, or pedal edema. Left shoulder prominent and tender patient cannot raise her left arm above her head NEUROLOGICAL: Gross neurological examination did not reveal any focal deficits. SKIN: No rashes. no petechiae. - Labs CBC & Chem 7: 12/07/24 08:31 12/07/24 08:31 Labs: Abnormal Lab Results - Last 24 Hours (Table) 12/06/24 12/06/24 12/07/24 Range/Units 16:24 20:29 06:06 RBC (4.10-5.20) 10*6/uL Hgb (12.0-15.0) g/dL Hct (37.2-46.3) % Immature Gran # (0.00-0.04) 10*3/uL Sodium (137-145) mmol/L Potassium (3.5-5.1) mmol/L Chloride (98-107) mmol/L BUN (7-17) mg/dL Glucose (74-99) mg/dL POC Glucose (mg/dL) 125 H 198 H 50 L (70-110) mg/dL 12/07/24 12/07/24 12/07/24 Range/Units 06:26 08:31 08:31 RBC 3.33 L (4.10-5.20) 10*6/uL Hgb 10.2 L (12.0-15.0) g/dL Hct 31.2 L (37.2-46.3) % Immature Gran # 0.07 H (0.00-0.04) 10*3/uL Sodium 127 L (137-145) mmol/L Potassium 5.4 H (3.5-5.1) mmol/L Chloride 97 L (98-107) mmol/L BUN 40 H (7-17) mg/dL Glucose 226 H (74-99) mg/dL POC Glucose (mg/dL) 55 L (70-110) mg/dL 12/07/24 Range/Units 11:48 RBC (4.10-5.20) 10*6/uL Hgb (12.0-15.0) g/dL Hct (37.2-46.3) % Immature Gran # (0.00-0.04) 10*3/uL Sodium (137-145) mmol/L Potassium (3.5-5.1) mmol/L Chloride (98-107) mmol/L BUN (7-17) mg/dL Glucose (74-99) mg/dL POC Glucose (mg/dL) 189 H (70-110) mg/dL Assessment and Plan Assessment: 1. Fall with left shoulder pain. Repeat shoulder x-ray showing persistent dislocation/subluxation of the humeral head relative to the glenoid and minimal ly displaced acute left humeral head fracture -X-ray of the shoulder reveals anterior dislocation of the humeral head relative to glenoid - Conscious sedation was done in ED and patient underwent closed reduction; postreduction x-ray was done which revealed improved anatomical alignment; patient's arm remains in sling -Orthopedic team consult: No surgical intervention 2. Symptomatic bradycardia; patient is currently on Tenormin - Hold atenolol - Hyoscyamine started - Cardiology team sign of the case, they recommended sleep study as an outpatient and follow-up with Dr. Gongora in 1 week upon discharge 3. Hyperkalemia; currently not on any supplement; possibly associated with DESIRAE inhibitor use; will monitor. Improved. Switch to low potassium diet 4. Elevated liver enzymes - Total bilirubin elevated at 1.5 with mild elevation of AST/ALT; will repeat liver enzymes with further workup if continuing to trend 5. Hypertension; continue home dose of Norvasc 10 mg daily; hold atenolol; li sinopril 10 mg daily 6. Diabetes mellitus, with hypoglycemia with long-term insulin use; continue home dose of Lantus 28 units SQ nightly; monitor Accu-Cheks q. CHS with insulin sliding scale - Lower Lantus to 15 units 7. Depression; Zoloft 25 mg daily 8. Metabolic encephalopathy versus altered mental status. Ordered urgent CT of the brain to rule out intracranial bleed/stroke, check ammonia level venous blood gas and all labs. Check urine analysis. Continue with neurocheck if no improvement will consider further workup or consult prognosis is guarded 9. Acute urinary retention status post Guerra catheter. Start Flomax. Urinalysis is benign 10. Hyponatremia noticed on 12/06 s/p Luis hugger, slowly improving. Check serum cortisol in the morning DVT prophylaxis; SCDs/Eliquis CODE STATUS; full code
[2024-12-08 06:12] LABS: Glucose,Whole Blood 91 mg/dL (70-110)
[2024-12-08 07:39] LABS: Basophils # (A) 0.06 10*3/uL (0.00-0.10); Basophils % (A) 0.7 %; Eosinophils # (A) 0.19 10*3/uL (0.04-0.35); Eosinophils % (A) 2.2 %; HCT 30.9 % (37.2-46.3); HGB 10.2 g/dL (12.0-15.0); Lymphocytes # (A) 2.23 10*3/uL (0.90-5.00); Lymphocytes % (A) 26.0 %; MCH 30.2 pg (27.0-32.0); MCHC 33.0 g/dL (32.0-37.0); MCV 91.4 fL (80.0-97.0); Monocytes # (A) 1.07 10*3/uL (0.20-1.00); Monocytes % (A) 12.5 %; Neutrophils # (A) 4.94 10*3/uL (1.80-7.70); Neutrophils % (A) 57.4 %; Platelet Count 420 10*3/uL (140-440); RBC 3.38 10*6/uL (4.10-5.20); RDW 14.5 % (11.5-14.5); WBC 8.59 10*3/uL (4.50-10.00)
[2024-12-08 07:56] LABS: African American GFR (CKD) 56 (>60 ml/min/1.73 sqM); Anion Gap 4 mmol/L; Blood Urea Nitrogen 41 mg/dL (7-17); Calcium 9.0 mg/dL (8.4-10.2); Carbon Dioxide 25 mmol/L (22-30); Chloride 97 mmol/L (98-107); Glucose 85 mg/dL (74-99); Non-African American GFR(CKD) 48 (>60 ml/min/1.73 sqM); Potassium 5.1 mmol/L (3.5-5.1); Sodium 126 mmol/L (137-145)
--- NOTE | 2024-12-08 11:05 | P.PN ---
Subjective The patient was seen at bedside this morning. She is complaining of pain in her left shoulder. Objective - Vital Signs Vital signs: Vital Signs Temp 97.5 F L 12/08/24 08:00 Pulse 86 12/08/24 08:00 Resp 18 12/08/24 08:00 BP 119/65 12/08/24 08:00 Pulse Ox 95 12/08/24 08:00 FiO2 Intake & Output 12/07/24 12/08/24 12/08/24 18:59 06:59 18:59 Intake Total 236 260 Output Total 350 700 Balance -114 -440 Weight 102.1 kg 99 kg Intake: IV 20 Invasive Line 4 20 Oral 236 240 Output: Urine 350 700 Other: Voiding Method Indwelling Catheter Indwelling Catheter Indwelling Catheter # Bowel Movements 1 - Exam The patient is resting comfortably in her bed and eating breakfast. There is diffuse swelling and ecchymosis over the shoulder and left arm. She is able to actively move all of her fingers and motor and sensation are intact in the median, ulnar, and radial nerve distributions. - Labs CBC & Chem 7: 12/08/24 06:23 12/08/24 06:23 Labs: Abnormal Lab Results - Last 24 Hours (Table) 12/07/24 12/07/24 12/07/24 Range/Units 11:48 16:23 20:14 RBC (4.10-5.20) 10*6/uL Hgb (12.0-15.0) g/dL Hct (37.2-46.3) % Immature Gran # (0.00-0.04) 10*3/uL Monocytes # (0.20-1.00) 10*3/uL Sodium (137-145) mmol/L Chloride (98-107) mmol/L BUN (7-17) mg/dL Creatinine (0.52-1.04) mg/dL POC Glucose (mg/dL) 189 H 154 H 211 H (70-110) mg/dL 12/08/24 12/08/24 Range/Units 06:23 06:23 RBC 3.38 L (4.10-5.20) 10*6/uL Hgb 10.2 L (12.0-15.0) g/dL Hct 30.9 L (37.2-46.3) % Immature Gran # 0.10 H (0.00-0.04) 10*3/uL Monocytes # 1.07 H (0.20-1.00) 10*3/uL Sodium 126 L (137-145) mmol/L Chloride 97 L (98-107) mmol/L BUN 41 H (7-17) mg/dL Creatinine 1.05 H (0.52-1.04) mg/dL POC Glucose (mg/dL) (70-110) mg/dL Assessment and Plan Assessment: Recurrent left shoulder dislocation, likely massive rotator cuff tear Plan: I had a long discussion with the patient this morning on her injury and treatment options going forward. We discussed that in elderly patients to dislocate their shoulders they also sustained massive rotator cuff tears. We discussed that since the soft tissue constraints of the shoulder are completely torn there is often problems with recurrent instability. I do not think it would benefit the patient to go to the operating room for sedation and attempt at closed reduction as she would likely continue to dislocate due to her presumed massive rotator cuff tear. I recommended use of a sling and follow-up with a shoulder specialist after discharge. We briefly discussed that definitive fixation for recurrent shoulder dislocations in elderly patients is a reverse shoulder arthroplasty, but the patient states she is not interested in having that surgery.
[2024-12-08 11:35] LABS: Glucose,Whole Blood 153 mg/dL (70-110)
[2024-12-08 16:29] LABS: Glucose,Whole Blood 156 mg/dL (70-110)
[2024-12-08 20:18] LABS: Glucose,Whole Blood 192 mg/dL (70-110)
--- NOTE | 2024-12-09 00:04 | P.PN ---
Subjective 84-year-old female sent from [facility] for increased bruising on left side. Patient is a poor historian and says she fell last week but is unsure how. She cannot specifically remember any falls or injuries. She is complaining of left shoulder pain however is unsure when this started. Denies chest pain, shortness of breath, abdominal pain, headache, vision changes. She is on thinners. She was recently admitted approximately 2 weeks ago for weakness and multiple falls at which time she was placed at [facility]. Patient has a history remarkable for atrial fibrillation, CVA, diabetes mellitus, hypertension, hyperlipidemia. In the ED heart rate is found to be in the 40s however patient is asymptomatic. Blood pressure 129/82. On physical examination there is diffuse left-sided bruising. Neurovascularly intact to all extremities. -Left shoulder x-ray reveals questionable anterior dislocation of the humeral head relative the glenoid. -CT chest/abdomen/pelvis reveals no acute traumatic process. CT brain and C- spine reveals no acute process. In the ED conscious sedation performed for closed reduction, postreduction x- rays revealed improved anatomical alignment. Patient was placed in a sling. Patient will be admitted to medicine for bradycardia with cardiology consult. 12/03 This is a pleasant 84 years old female who presents from [facility] for increased bruise on the left side. There is reports of falling last week with left shoulder pain. Also patient was found to have heart rate in 40s Patient close reduction of her left anterior dislocated shoulder, she still have some pain tenderness and deformity in her left shoulders with limitation of movement therefore we are going to consult orthopedic team Patient heart rate in 40s and low 50s, currently asymptomatic no chest pain dyspnea or dizziness. She was on metoprolol 25 mg 3 times daily which is currently on hold Repeat shoulder x-ray yesterday showing close reduction of the shoulder pretty well CT of the head and neck showing no acute process and CT of the chest abdominal pelvis showing cardiomegaly small bilateral pleural effusion with no a cute abnormality. I reviewed the images by myself and agree. Cardiology following closely. We are going to consult orthopedic team 12/04 Patient heart rate is improved and currently in 60s, patient with no symptom cardiology following closely Patient still complaining from her left shoulder pain which is looks somewhat controlled, movement little better less deformity her sling is in place We are pending for orthopedic evaluation who saw the patient later on today and recommended hip and pelvic x-ray showing bilateral osteoarthritis of the hips but it is mild associated with no displaced fractures. Patient also complains from extensive bruise in her left breast and left chest down to the abdomen secondary to her shoulder problem We may hold 1 or 2 doses of Eliquis. Also patient on aspirin 81 mg Hemoglobin A1c is 8.8, patient is on Lantus 28 units. Patient cannot tolerate metformin because of GI symptom. Patient would be benefit from outpatient follow-up with equipment validation specialist. 12/05 Patient clinically doing well and is improving Her main complaint is her left shoulder. Denies any other new complaint no chest pain dyspnea or dizziness Heart rate is improved in 60s after holding metoprolol and currently patient is asymptomatic regarding this Cardiology signed off the case Orthopedic team evaluated the patient and cleared her for discharge with recommendation for close outpatient follow-up in 1 to 2 weeks But time she was not clear it was late for the patient to go back to her skilled nursing. Possible discharge tomorrow morning Resume Eliquis tomorrow morning Her glucose was on the low side we lowered the dose of Lantus 28 units down to 25 units with close monitoring. Glucose gel as needed for hypoglycemia 12/06 This morning I was paged by the nurse that patient is becoming more bradycardic and heart rate dropped to 30s, cardiology team reconsulted. Hyoscyamine was a dded Patient is more sleepy today Currently blood pressure 179/81. Patient is afebrile. Sugar was on the low side 68 136, 59 and 81. We will give her one-time dose of D50 percent Repeat all labs today including ammonia levels venous blood gas. Check urinalysis and urine culture. Will repeat CT of the brain Daughter at bedside I discussed the plan with her. She verbalized understanding acceptance Continue with aspirin and Plavix. Continue with hyoscyamine added by cardiology team Continue with blood pressure medications close monitoring 12/06 I came kiln burner helper to see the patient she was more obtained none waking up for tactile or verbal stimuli, she mumbles only does not open her eyes or follow command does not answer questions. She just sleeps in the bed, daughter at bedside, CT of the brain ordered stat which came back negative for acute process. Also we did extensive workup including blood test CBC BMP LFT With sodium 132, potassium 5.3 BUN 34 creatinine 0.9, lactic acid 0.8 Urinalysis normal. Bilirubin 1.5, liver enzymes very mildly elevated. Procalcitonin is negative less than 0.20. Bladder scan showing bladder retention more than 500 cc and Guerra catheter was placed. Her blood pressure was mildly elevated with systolic 1 7180 improved to 1 1:30 pill of oral hydralazine 25 mg and now stable. As sugar was noticed low in the morning she was given dextrose 50 ampoule x 1, her sugar improved to 120s and her mentation improved, I can see her again now she is awake answers my questions complaining from pain in her upper back and headache but she looks calm not in distress. She has some mild bruise behind her ear but no overt bruising new, she still has extensive bruise in her left breast left side of the chest down to the left side of the abdomen. Patient remains on aspirin started by cardiology on Eliquis 5 mg. On checking her in the evening she was still doing well She has hypothermia and started on Luis hugger Plan of care discussed with the patient daughter and she is agreeable. 12/07 Patient mentation is back to normal today, fully awake and oriented at baseline and this is confirmed by the daughter at bedside which have the same impression Patient main complaint in her left shoulder pain, patient thinks is still dislocated and she was requesting herself to repeat the shoulder x-ray which showed persistent subluxation/dislocation of the left shoulder and a new minimally displaced left humeral head fracture. This information was discussed with orthopedic team with Dr. Daly who informed staff no need for any surgical intervention and continue monitoring. Patient using the sling when she is up from bed as instructed Patient delirium yesterday was thought secondary to multifactorial for example urinary retention status post Guerra catheter but the main culprit thought was the hypoglycemia, initially she was on Lantus 28 units we have to drop it down gradually to 25 units and yesterday down to 20 units and despite that this mo rning her glucose was still on the low side at 50s indicating that probably patient problems were due to hypoglycemia as well, we lowered the Lantus tonight to 15 units with close monitoring Our cardiology team recommended to continue hyoscyamine and follow-up outpatient with Dr. Gongora. Discontinue atenolol upon discharge and the sign of the case 12/08 Patient today fully awake and oriented, she is mainly complaining some pain in her left shoulder, does not look dislocated Patient was evaluated by orthopedic team and recommended no surgical intervention as she is high risk for risk and poor surgical candidate She is afraid she will not be independent like before. Objective - Vital Signs Vital signs: Vital Signs Temp 98.2 F 12/08/24 23:26 Pulse 87 12/08/24 23:26 Resp 16 12/08/24 23:26 BP 122/55 12/08/24 23:26 Pulse Ox 94 L 12/08/24 23:26 FiO2 Intake & Output 12/08/24 12/08/24 12/09/24 06:59 18:59 06:59 Intake Total 260 1020 550 Output Total 700 775 650 Balance -440 245 -100 Weight 99 kg Intake: IV 20 10 Invasive Line 4 20 10 Oral 240 1020 540 Output: Urine 700 775 650 Other: Voiding Method Indwelling Catheter Indwelling Catheter Indwelling Catheter # Bowel Movements 1 - Exam -GENERAL: The patient is alert and more sleepy , not in any acute distress. Well developed, well nourished. Obese HEENT: Pupils are round and equally reacting to light. EOMI. No scleral icterus. No conjunctival pallor. Normocephalic, atraumatic. No pharyngeal erythema. No thyromegaly. CARDIOVASCULAR: S1 and S2 present. No murmurs, rubs, or gallops. PULMONARY: Chest is clear to auscultation, no wheezing , no crackles. ABDOMEN: Soft, nontender, nondistended, normoactive bowel sounds. No palpable organomegaly. MUSCULOSKELETAL: No joint swelling or deformity. -EXTREMITIES: No cyanosis, clubbing, or pedal edema. Left shoulder prominent and tender patient cannot raise her left arm above her head NEUROLOGICAL: Gross neurological examination did not reveal any focal deficits. SKIN: No rashes. no petechiae. - Labs CBC & Chem 7: 12/08/24 06:23 12/08/24 06:23 Labs: Abnormal Lab Results - Last 24 Hours (Table) 12/08/24 12/08/24 12/08/24 Range/Units 06:23 06:23 11:33 RBC 3.38 L (4.10-5.20) 10*6/uL Hgb 10.2 L (12.0-15.0) g/dL Hct 30.9 L (37.2-46.3) % Immature Gran # 0.10 H (0.00-0.04) 10*3/uL Monocytes # 1.07 H (0.20-1.00) 10*3/uL Sodium 126 L (137-145) mmol/L Chloride 97 L (98-107) mmol/L BUN 41 H (7-17) mg/dL Creatinine 1.05 H (0.52-1.04) mg/dL POC Glucose (mg/dL) 153 H (70-110) mg/dL 12/08/24 12/08/24 Range/Units 16:28 20:16 RBC (4.10-5.20) 10*6/uL Hgb (12.0-15.0) g/dL Hct (37.2-46.3) % Immature Gran # (0.00-0.04) 10*3/uL Monocytes # (0.20-1.00) 10*3/uL Sodium (137-145) mmol/L Chloride (98-107) mmol/L BUN (7-17) mg/dL Creatinine (0.52-1.04) mg/dL POC Glucose (mg/dL) 156 H 192 H (70-110) mg/dL Assessment and Plan Assessment: 1. Fall with left shoulder pain. Repeat shoulder x-ray showing persistent dislocation/subluxation of the humeral head relative to the glenoid and minimally displaced acute left humeral head fracture -X-ray of the shoulder reveals anterior dislocation of the humeral head relative to glenoid - Conscious sedation was done in ED and patient underwent closed reduction; postreduction x-ray was done which revealed improved anatomical alignment; patient's arm remains in sling -Orthopedic team consult: No surgical intervention 2. Symptomatic bradycardia; patient is currently on Tenormin - Hold atenolol - Hyoscyamine started - Cardiology team sign of the case, they recommended sleep study as an outpatient and follow-up with Dr. Gongora in 1 week upon discharge 3. Hyperkalemia; currently not on any supplement; possibly associated with DESIRAE inhibitor use; will monitor. Improved. Switch to low potassium diet 4. Elevated liver enzymes - Total bilirubin elevated at 1.5 with mild elevation of AST/ALT; will repeat liver enzymes with further workup if continuing to trend 5. Hypertension; continue home dose of Norvasc 10 mg daily; hold atenolol; lisinopril 10 mg daily 6. Diabetes mellitus, with hypoglycemia with long-term insulin use; continue home dose of Lantus 28 units SQ nightly; monitor Accu-Cheks q. CHS with insulin sliding scale - Lower Lantus to 15 units 7. Depression; Zoloft 25 mg daily 8. Metabolic encephalopathy versus altered mental status. Ordered urgent CT of the brain to rule out intracranial bleed/stroke, check ammonia level venous blood gas and all labs. Check urine analysis. Continue with neurocheck if no improvement will consider further workup or consult prognosis is guarded 9. Acute urinary retention status post Guerra catheter. Start Flomax. Urinalysis is benign 10. Hyponatremia noticed on 12/06 s/p Luis epstein, slowly improving. Check serum cortisol in the morning DVT prophylaxis; SCDs/Eliquis CODE STATUS; full code
[2024-12-09 00:08] LABS: Glucose,Whole Blood 113 mg/dL (70-110)
[2024-12-09 06:03] LABS: Glucose,Whole Blood 79 mg/dL (70-110)
[2024-12-09 11:24] LABS: Glucose,Whole Blood 145 mg/dL (70-110)
[2024-12-09 14:53] LABS: HCT 30.0 % (37.2-46.3); HGB 10.0 g/dL (12.0-15.0); MCH 30.2 pg (27.0-32.0); MCHC 33.3 g/dL (32.0-37.0); MCV 90.6 fL (80.0-97.0); Platelet Count 407 10*3/uL (140-440); RBC 3.31 10*6/uL (4.10-5.20); RDW 14.6 % (11.5-14.5); WBC 7.97 10*3/uL (4.50-10.00)
[2024-12-09 15:02] LABS: African American GFR (CKD) 60 (>60 ml/min/1.73 sqM); Anion Gap 5 mmol/L; Blood Urea Nitrogen 31 mg/dL (7-17); Calcium 9.2 mg/dL (8.4-10.2); Carbon Dioxide 23 mmol/L (22-30); Chloride 95 mmol/L (98-107); Glucose 167 mg/dL (74-99); Non-African American GFR(CKD) 52 (>60 ml/min/1.73 sqM); Potassium 5.2 mmol/L (3.5-5.1); Sodium 123 mmol/L (137-145)
[2024-12-09 16:48] LABS: Glucose,Whole Blood 157 mg/dL (70-110)
[2024-12-09 20:03] LABS: Glucose,Whole Blood 141 mg/dL (70-110)
[2024-12-09] MEDS ORDERED: MELATONIN 3 MG TABLET PO SCH (21:00)
[2024-12-09] MEDS: MELATONIN 3 MG TABLET PO PRN (21:08)
[2024-12-10 03:43] LABS: Glucose,Whole Blood 151 mg/dL (70-110)
[2024-12-10 05:42] LABS: Glucose,Whole Blood 191 mg/dL (70-110)
--- NOTE | 2024-12-10 07:06 | P.PN ---
Subjective 84-year-old female sent from [facility] [place] for increased bruising on left side. Patient is a poor historian and says she fell last week but is unsure how. She cannot specifically remember any falls or injuries. She is complaining of left shoulder pain however is unsure when this started. Denies chest pain, shortness of breath, abdominal pain, headache, vision changes. She is on thinners. She was recently admitted approximately 2 weeks ago for weakness and multiple falls at which time she was placed at [facility]. Patient has a history remarkable for atrial fibrillation, CVA, diabetes mellitus, hypertension, hyperlipidemia. In the ED heart rate is found to be in the 40s however patient is asymptomatic. Blood pressure 129/82. On physical examination there is diffuse left-sided bruising. Neurovascularly intact to all extremities. -Left shoulder x-ray reveals questionable anterior dislocation of the humeral head relative the glenoid. -CT chest/abdomen/pelvis reveals no acute traumatic process. CT brain and C- spine reveals no acute process. In the ED conscious sedation performed for closed reduction, postreduction x- rays revealed improved anatomical alignment. Patient was placed in a sling. Patient will be admitted to medicine for bradycardia with cardiology consult. 12/03 This is a pleasant 84 years old female who presents from [place] for increased bruise on the left side. There is reports of falling last week with left shoulder pain. Also patient was found to have heart rate in 40s Patient close reduction of her left anterior dislocated shoulder, she still have some pain tenderness and deformity in her left shoulders with limitation of movement therefore we are going to consult orthopedic team Patient heart rate in 40s and low 50s, currently asymptomatic no chest pain dyspnea or dizziness. She was on metoprolol 25 mg 3 times daily which is currently on hold Repeat shoulder x-ray yesterday showing close reduction of the shoulder pretty well CT of the head and neck showing no acute process and CT of the chest abdominal pelvis showing cardiomegaly small bilateral pleural effusion with no a cute abnormality. I reviewed the images by myself and agree. Cardiology following closely. We are going to consult orthopedic team 12/04 Patient heart rate is improved and currently in 60s, patient with no symptom cardiology following closely Patient still complaining from her left shoulder pain which is looks somewhat controlled, movement little better less deformity her sling is in place We are pending for orthopedic evaluation who saw the patient later on today and recommended hip and pelvic x-ray showing bilateral osteoarthritis of the hips but it is mild associated with no displaced fractures. Patient also complains from extensive bruise in her left breast and left chest down to the abdomen secondary to her shoulder problem We may hold 1 or 2 doses of Eliquis. Also patient on aspirin 81 mg Hemoglobin A1c is 8.8, patient is on Lantus 28 units. Patient cannot tolerate metformin because of GI symptom. Patient would be benefit from outpatient follow-up with shrinker. 12/05 Patient clinically doing well and is improving Her main complaint is her left shoulder. Denies any other new complaint no chest pain dyspnea or dizziness Heart rate is improved in 60s after holding metoprolol and currently patient is asymptomatic regarding this Cardiology signed off the case Orthopedic team evaluated the patient and cleared her for discharge with recommendation for close outpatient follow-up in 1 to 2 weeks But time she was not clear it was late for the patient to go back to her snf. Possible discharge tomorrow morning Resume Eliquis tomorrow morning Her glucose was on the low side we lowered the dose of Lantus 28 units down to 25 units with close monitoring. Glucose gel as needed for hypoglycemia 12/06 This morning I was paged by the nurse that patient is becoming more bradycardic and heart rate dropped to 30s, cardiology team reconsulted. Hyoscyamine was a dded Patient is more sleepy today Currently blood pressure 179/81. Patient is afebrile. Sugar was on the low side 68 136, 59 and 81. We will give her one-time dose of D50 percent Repeat all labs today including ammonia levels venous blood gas. Check urinalysis and urine culture. Will repeat CT of the brain Daughter at bedside I discussed the plan with her. She verbalized understanding acceptance Continue with aspirin and Plavix. Continue with hyoscyamine added by cardiology team Continue with blood pressure medications close monitoring 12/06 I came solvent process extractor operator to see the patient she was more obtained none waking up for tactile or verbal stimuli, she mumbles only does not open her eyes or follow command does not answer questions. She just sleeps in the bed, daughter at bedside, CT of the brain ordered stat which came back negative for acute process. Also we did extensive workup including blood test CBC BMP LFT With sodium 132, potassium 5.3 BUN 34 creatinine 0.9, lactic acid 0.8 Urinalysis normal. Bilirubin 1.5, liver enzymes very mildly elevated. Procalcitonin is negative less than 0.20. Bladder scan showing bladder retention more than 500 cc and Guerra catheter was placed. Her blood pressure was mildly elevated with systolic 1 7180 improved to 1 1:30 pill of oral hydralazine 25 mg and now stable. As sugar was noticed low in the morning she was given dextrose 50 ampoule x 1, her sugar improved to 120s and her mentation improved, I can see her again now she is awake answers my questions complaining from pain in her upper back and headache but she looks calm not in distress. She has some mild bruise behind her ear but no overt bruising new, she still has extensive bruise in her left breast left side of the chest down to the left side of the abdomen. Patient remains on aspirin started by cardiology on Eliquis 5 mg. On checking her in the evening she was still doing well She has hypothermia and started on Luis hugger Plan of care discussed with the patient daughter and she is agreeable. 12/07 Patient mentation is back to normal today, fully awake and oriented at baseline and this is confirmed by the daughter at bedside which have the same impression Patient main complaint in her left shoulder pain, patient thinks is still dislocated and she was requesting herself to repeat the shoulder x-ray which showed persistent subluxation/dislocation of the left shoulder and a new minimally displaced left humeral head fracture. This information was discussed with orthopedic team with Dr. Daly who informed staff no need for any surgical intervention and continue monitoring. Patient using the sling when she is up from bed as instructed Patient delirium yesterday was thought secondary to multifactorial for example urinary retention status post Guerra catheter but the main culprit thought was the hypoglycemia, initially she was on Lantus 28 units we have to drop it down gradually to 25 units and yesterday down to 20 units and despite that this mo rning her glucose was still on the low side at 50s indicating that probably patient problems were due to hypoglycemia as well, we lowered the Lantus tonight to 15 units with close monitoring Our cardiology team recommended to continue hyoscyamine and follow-up outpatient with Dr. Gongora. Discontinue atenolol upon discharge and the sign of the case 12/08 Patient today fully awake and oriented, she is mainly complaining some pain in her left shoulder, does not look dislocated Patient was evaluated by orthopedic team and recommended no surgical intervention as she is high risk for risk and poor surgical candidate She is afraid she will not be independent like before. 12/09 Patient today feels much better She still have some pain in her left shoulder at the fracture and dislocation/relocation site, bruise improving patient resumed her Eliquis and aspirin Patient able to use her left upper extremity to certain degree. Orthopedic team recommended no surgical intervention and patient is agreeable with this recommendation Previously was independent with plan to go to rehab Guerra catheter in place for acute urinary retention Sugar improved after we lowered her insulin to 15 units almost half of her home dose However sodium trending down to 123 today. We discontinued Lasix 10 mg daily also we will put the patient on a fluid restriction and consult nephrology team Objective - Vital Signs Vital signs: Vital Signs Temp 98 F 12/09/24 08:00 Pulse 82 12/09/24 08:00 Resp 17 12/09/24 08:00 BP 135/78 12/09/24 08:00 Pulse Ox 96 12/09/24 08:00 FiO2 Intake & Output 12/08/24 12/09/24 12/09/24 18:59 06:59 18:59 Intake Total 1020 560 540 Output Total 775 1550 250 Balance 245 -990 290 Weight 98.6 kg Intake: IV 20 Invasive Line 4 20 Oral 1020 540 540 Output: Urine 775 1550 250 Other: Voiding Method Indwelling Catheter Indwelling Catheter Indwelling Catheter - Exam -GENERAL: The patient is alert and more sleepy , not in any acute distress. Well developed, well nourished. Obese HEENT: Pupils are round and equally reacting to light. EOMI. No scleral icterus. No conjunctival pallor. Normocephalic, atraumatic. No pharyngeal erythema. No thyromegaly. CARDIOVASCULAR: S1 and S2 present. No murmurs, rubs, or gallops. PULMONARY: Chest is clear to auscultation, no wheezing , no crackles. ABDOMEN: Soft, nontender, nondistended, normoactive bowel sounds. No palpable organomegaly. MUSCULOSKELETAL: No joint swelling or deformity. -EXTREMITIES: No cyanosis, clubbing, or pedal edema. Left shoulder prominent and tender patient cannot raise her left arm above her head NEUROLOGICAL: Gross neurological examination did not reveal any focal deficits. SKIN: No rashes. no petechiae. - Labs CBC & Chem 7: 12/09/24 14:34 12/09/24 14:34 Labs: Abnormal Lab Results - Last 24 Hours (Table) 12/08/24 12/08/24 12/08/24 Range/Units 11:33 16:28 20:16 POC Glucose (mg/dL) 153 H 156 H 192 H (70-110) mg/dL 12/09/24 Range/Units 00:05 POC Glucose (mg/dL) 113 H (70-110) mg/dL Assessment and Plan Assessment: 1. Fall with left shoulder pain. Repeat shoulder x-ray showing persistent dislocation/subluxation of the humeral head relative to the glenoid and minimally displaced acute left humeral head fracture -X-ray of the shoulder reveals anterior dislocation of the humeral head relative to glenoid - Conscious sedation was done in ED and patient underwent closed reduction; postreduction x-ray was done which revealed improved anatomical alignment; patient's arm remains in sling -Orthopedic team consult: No surgical intervention 2. Symptomatic bradycardia; patient is currently on Tenormin - Hold atenolol - Hyoscyamine started - Cardiology team sign of the case, they recommended sleep study as an outpatient and follow-up with Dr. Gongora in 1 week upon discharge 3. Hyperkalemia; currently not on any supplement; possibly associated with DESIRAE inhibitor use; will monitor. Improved. Switch to low potassium diet 4. Elevated liver enzymes - Total bilirubin elevated at 1.5 with mild elevation of AST/ALT; will repeat liver enzymes with further workup if continuing to trend 5. Hypertension; continue home dose of Norvasc 10 mg daily; hold atenolol; lisinopril 10 mg daily 6. Diabetes mellitus, with hypoglycemia with long-term insulin use; continue home dose of Lantus 28 units SQ nightly; monitor Accu-Cheks q. CHS with insulin sliding scale - Lower Lantus to 15 units 7. Depression; Zoloft 25 mg daily 8. Metabolic encephalopathy versus altered mental status. Ordered urgent CT of the brain to rule out intracranial bleed/stroke, check ammonia level venous blood gas and all labs. Check urine analysis. Continue with neurocheck if no improvement will consider further workup or consult prognosis is guarded 9. Acute urinary retention status post Guerra catheter. Start Flomax. Urinalysis is benign 10. Hyponatremia noticed on 12/06 s/p Luis hugger, slowly improving. Check serum cortisol in the morning 11. Hyponatremia, discontinue IV Lasix, with fluid restriction, nephrology team consult DVT prophylaxis; SCDs/Eliquis CODE STATUS; full code
[2024-12-10 07:24] LABS: African American GFR (CKD) 64 (>60 ml/min/1.73 sqM); Anion Gap 6 mmol/L; Blood Urea Nitrogen 28 mg/dL (7-17); Calcium 9.2 mg/dL (8.4-10.2); Carbon Dioxide 25 mmol/L (22-30); Chloride 93 mmol/L (98-107); Glucose 148 mg/dL (74-99); Magnesium 1.7 mg/dL (1.6-2.3); Non-African American GFR(CKD) 55 (>60 ml/min/1.73 sqM); Potassium 4.9 mmol/L (3.5-5.1); Sodium 124 mmol/L (137-145)
--- NOTE | 2024-12-10 10:04 | P.NPCON ---
History of Present Illness - Reason for Consult hyponatremia - History of Present Illness Reason for consultation: Hyponatremia History of present illness: Patient is a 84-year-old female seen in renal consultation for hyponatremia. Patient came to the hospital due to recurrent falls. Patient is not a very reliable historian but states she fell about 3 times at home. She came in complaining of shoulder pain and is being followed by orthopedic surgery. Patient sodium level on admission was 130 and improved to 135 dated December 02, 2024 but then has been gradually decreasing and was down to 123 yesterday. It is fairly stable at 124 today. She has been receiving Lasix 10 mg daily. She does have history of diabetes. I do not see thiazide diuretics or NSAIDs on her home medication list. She currently has a Guerra catheter and has been voiding. Patient states she had breast cancer several years ago and underwent mastectomy. Oral intake has been poor the last couple of days. Denies history of kidney disease. GFR is at baseline. Vital signs are stable. General: No acute distress. HEENT: Head exam is unremarkable. LUNGS: No audible rhonchi or wheezes. HEART: Rate and Rhythm are regular. ABDOMEN: Nontender. EXTREMITITES: No edema. Past Medical History Past Medical History: Atrial Fibrillation, Cancer, CVA/TIA, Diabetes Mellitus, Hyperlipidemia, Hypertension, Syncope Additional Past Medical History / Comment(s): Degeneration of intervebral disc, peripheral neuropathy. CA Right breast, obesity, CHILKAT History of Any Multi-Drug Resistant Organisms: None Reported Past Surgical History: Hysterectomy Additional Past Surgical History / Comment(s): colonoscpy, cataract, Right brrease mastectomy. D&C Past Anesthesia/Blood Transfusion Reactions: No Reported Reaction Past Psychological History: No Psychological Hx Reported Smoking Status: Former smoker Past Alcohol Use History: None Reported Past Drug Use History: None Reported - Past Family History Mother Family Medical History: Cancer, Hypertension Father Family Medical History: Coronary Artery Disease (CAD), Myocardial Infarction (PR) Brother(s) Family Medical History: Coronary Artery Disease (CAD) Medications and Allergies Home Medications Medication Instructions Recorded Confirmed Type Aspirin [Adult Low Dose Aspirin EC] 81 mg PO HS@2100 09/15/17 12/02/24 History Sertraline [Zoloft] 25 mg PO DAILY@0800 11/14/24 12/02/24 History Torsemide [Demadex] 5 mg PO DAILY@1200 11/14/24 12/02/24 History amLODIPine [Norvasc] 10 mg PO DAILY@1200 11/14/24 12/02/24 History lisinopriL [Zestril] 10 mg PO DAILY@1200 11/14/24 12/02/24 History Acetaminophen Tab [Tylenol Tab] 500 - 1,000 mg PO Q8H PRN 12/02/24 12/02/24 History Acetaminophen Tab [Tylenol] 650 mg PO Q6HR PRN 12/02/24 12/02/24 History Apixaban [Eliquis] 5 mg PO BID@0800,1700 12/02/24 12/02/24 History INSULIN LISPRO (HumaLOG) [HumaLOG] See Protocol SQ ACHS 12/02/24 12/02/24 History Insulin Glargine (Lantus) [Lantus 28 unit SQ HS@2100 12/02/24 12/02/24 History Vial] Magnesium Hydroxide [Milk of 7,200 mg PO DAILY PRN 12/02/24 12/02/24 History Magnesia Concentrate] Na Phos,M-B/Na Phos,Di-Ba [Fleet 133 ml RECTAL DAILY PRN 12/02/24 12/02/24 History Adult] Nystatin 100,000 Unit/gm Powd 1 applic TOPICAL BID 12/02/24 12/02/24 History [Mycostatin Powder] Pantoprazole [Protonix] 40 mg PO DAILY@0700 12/02/24 12/02/24 History bisacodyL [Dulcolax] 10 mg RECTAL DAILY PRN 12/02/24 12/02/24 History Allergies Allergy/AdvReac Type Severity Reaction Status Date / Time [id number] Reductase Allergy Rash/Hives Verified 12/02/24 13:52 Inhibitor [[id number]-Qrb-Hpd Reductase Inhibitor] codeine AdvReac Rash/Hives Verified 12/02/24 13:52 metformin AdvReac Abdominal Verified 12/02/24 13:52 Pain Sulfa (Sulfonamide AdvReac Rash/Hives Verified 12/02/24 13:52 Antibiotics) & Nausea Physical Exam Vitals: Vital Signs Temp Pulse Resp BP Pulse Ox 12/10/24 08:00 99 12/10/24 07:59 98.1 F 99 18 148/62 94 L 06/30/25 03:35 98.2 F 94 17 137/63 94 L 12/09/24 23:10 98.2 F 83 17 135/65 95 12/09/24 20:30 98.1 F 87 19 156/67 94 L 12/09/24 16:00 98.5 F 84 16 152/57 96 12/09/24 11:31 98 F 82 16 131/67 96 Intake and Output 12/09/24 12/10/24 12/10/24 22:59 06:59 14:59 Intake Total 550 550 10 Output Total 1125 Balance -575 550 10 Intake: IV 10 10 10 Invasive Line 4 10 10 10 Oral 540 540 Output: Urine 1125 Other: Voiding Method Indwelling Catheter Indwelling Catheter Indwelling Catheter Weight 100.8 kg Results - Lab Results Most recent lab results Calcium 9.2 mg/dL (8.4-10.2) 12/10/24 06:50 Magnesium 1.7 mg/dL (1.6-2.3) 12/10/24 06:50 12/09/24 14:34 12/10/24 06:50 Assessment and Plan Plan: Assessment: 1. Hyponatremia. Appears euvolemic at this time. TSH normal. Cortisol level not low. Sodium level 124 today. 2. Recurrent falls. 3. Left shoulder dislocation with concern for rotator cuff tear being followed by orthopedic surgery. 4. Benign hypertension. 5. Diabetes mellitus. Plan: Maintain fluid restriction. Add urea. Encouraged oral intake. Check serum osmolality, urine sodium and urine osmolality. Repeat labs in the morning. Thank you for the consultation. I will continue to follow the patient with you during her hospital stay.
[2024-12-10] MEDS: UREA 15 GM POWD.PACK PO SCH (11:19)
[2024-12-10 11:23] LABS: Glucose,Whole Blood 194 mg/dL (70-110)
[2024-12-10 16:36] LABS: Glucose,Whole Blood 178 mg/dL (70-110)
[2024-12-10 20:07] LABS: Glucose,Whole Blood 278 mg/dL (70-110)
[2024-12-10] MEDS: QUEtiapine 25 MG TAB PO SCH (22:26)
[2024-12-11 05:53] LABS: Glucose,Whole Blood 212 mg/dL (70-110)
[2024-12-11 07:16] LABS: Basophils # (A) 0.03 10*3/uL (0.00-0.10); Basophils % (A) 0.2 %; Eosinophils # (A) 0.00 10*3/uL (0.04-0.35); Eosinophils % (A) 0.0 %; HCT 32.9 % (37.2-46.3); HGB 11.2 g/dL (12.0-15.0); Lymphocytes # (A) 1.97 10*3/uL (0.90-5.00); Lymphocytes % (A) 16.3 %; MCH 30.5 pg (27.0-32.0); MCHC 34.0 g/dL (32.0-37.0); MCV 89.6 fL (80.0-97.0); Monocytes # (A) 1.38 10*3/uL (0.20-1.00); Monocytes % (A) 11.4 %; Neutrophils # (A) 8.53 10*3/uL (1.80-7.70); Neutrophils % (A) 70.9 %; Platelet Count 480 10*3/uL (140-440); RBC 3.67 10*6/uL (4.10-5.20); RDW 14.5 % (11.5-14.5); WBC 12.06 10*3/uL (4.50-10.00)
[2024-12-11 07:52] LABS: African American GFR (CKD) 52 (>60 ml/min/1.73 sqM); Anion Gap 11 mmol/L; Blood Urea Nitrogen 46 mg/dL (7-17); Calcium 10.2 mg/dL (8.4-10.2); Carbon Dioxide 20 mmol/L (22-30); Chloride 95 mmol/L (98-107); Glucose 190 mg/dL (74-99); Magnesium 1.7 mg/dL (1.6-2.3); Non-African American GFR(CKD) 45 (>60 ml/min/1.73 sqM); Potassium 5.3 mmol/L (3.5-5.1); Sodium 126 mmol/L (137-145)
--- NOTE | 2024-12-11 08:57 | P.PN ---
Subjective Progress Note Date: 12/11/24 84-year-old female sent from [facility] for increased bruising on left side. Patient is a poor historian and says she fell last week but is unsure how. She cannot specifically remember any falls or injuries. She is complaining of left shoulder pain however is unsure when this started. Denies chest pain, shortness of breath, abdominal pain, headache, vision changes. She is on thinners. She was recently admitted approximately 2 weeks ago for weakness and multiple falls at which time she was placed at [facility]. Patient has a history remarkable for atrial fibrillation, CVA, diabetes mellitus, hypertension, hyperlipidemia. In the ED heart rate is found to be in the 40s however patient is asymptomatic. Blood pressure 129/82. On physical examination there is diffuse left-sided bruising. Neurovascularly intact to all extremities. -Left shoulder x-ray reveals questionable anterior dislocation of the humeral head relative the glenoid. -CT chest/abdomen/pelvis reveals no acute traumatic process. CT brain and C- spine reveals no acute process. In the ED conscious sedation performed for closed reduction, postreduction x- rays revealed improved anatomical alignment. Patient was placed in a sling. Patient will be admitted to medicine for bradycardia with cardiology consult. 12/03 This is a pleasant 84 years old female who presents from [place] for increased bruise on the left side. There is reports of falling last week with left shoulder pain. Also patient was found to have heart rate in 40s Patient close reduction of her left anterior dislocated shoulder, she still have some pain tenderness and deformity in her left shoulders with limitation of movement therefore we are going to consult orthopedic team Patient heart rate in 40s and low 50s, currently asymptomatic no chest pain dyspnea or dizziness. She was on metoprolol 25 mg 3 times daily which is currently on hold Repeat shoulder x-ray yesterday showing close reduction of the shoulder pretty well CT of the head and neck showing no acute process and CT of the chest abdominal pelvis showing cardiomegaly small bilateral pleural effusion with no acute abnormality. I reviewed the images by myself and agree. Cardiology following closely. We are going to consult orthopedic team 12/04 Patient heart rate is improved and currently in 60s, patient with no symptom cardiology following closely Patient still complaining from her left shoulder pain which is looks somewhat controlled, movement little better less deformity her sling is in place We are pending for orthopedic evaluation who saw the patient later on today and recommended hip and pelvic x-ray showing bilateral osteoarthritis of the hips but it is mild associated with no displaced fractures. Patient also complains from extensive bruise in her left breast and left chest down to the abdomen secondary to her shoulder problem We may hold 1 or 2 doses of Eliquis. Also patient on aspirin 81 mg Hemoglobin A1c is 8.8, patient is on Lantus 28 units. Patient cannot tolerate metformin because of GI symptom. Patient would be benefit from outpatient follow-up with marking stitcher. 12/05 Patient clinically doing well and is improving Her main complaint is her left shoulder. Denies any other new complaint no chest pain dyspnea or dizziness Heart rate is improved in 60s after holding metoprolol and currently patient is asymptomatic regarding this Cardiology signed off the case Orthopedic team evaluated the patient and cleared her for discharge with recommendation for close outpatient follow-up in 1 to 2 weeks But time she was not clear it was late for the patient to [facility]. Possible discharge tomorrow morning Resume Eliquis tomorrow morning Her glucose was on the low side we lowered the dose of Lantus 28 units down to 25 units with close monitoring. Glucose gel as needed for hypoglycemia 12/06 This morning I was paged by the nurse that patient is becoming more bradycardic and heart rate dropped to 30s, cardiology team reconsulted. Hyoscyamine was added Patient is more sleepy today Currently blood pressure 179/81. Patient is afebrile. Sugar was on the low side 68 136, 59 and 81. We will give her one-time dose of D50 percent Repeat all labs today including ammonia levels venous blood gas. Check uri nalysis and urine culture. Will repeat CT of the brain Daughter at bedside I discussed the plan with her. She verbalized understanding acceptance Continue with aspirin and Plavix. Continue with hyoscyamine added by cardiology team Continue with blood pressure medications close monitoring 12/06 I came stabber to see the patient she was more obtained none waking up for tactile or verbal stimuli, she mumbles only does not open her eyes or follow command does not answer questions. She just sleeps in the bed, daughter at bedside, CT of the brain ordered stat which came back negative for acute process. Also we did extensive workup including blood test CBC BMP LFT With sodium 132, potassium 5.3 BUN 34 creatinine 0.9, lactic acid 0.8 Urinalysis normal. Bilirubin 1.5, liver enzymes very mildly elevated. Procalcitonin is negative less than 0.20. Bladder scan showing bladder retention more than 500 cc and Guerra catheter was placed. Her blood pressure was mildly elevated with systolic 1 7180 improved to 1 1:30 pill of oral hydralazine 25 mg and now stable. As sugar was noticed low in the morning she was given dextrose 50 ampoule x 1, her sugar improved to 120s and her mentation improved, I can see her again now she is awake answers my questions complaining from pain in her upper back and headache but she looks calm not in distress. She has some mild bruise behind her ear but no overt bruising new, she still has extensive bruise in her left breast left side of the chest down to the left side of the abdomen. Patient remains on aspirin started by cardiology on Eliquis 5 m g. On checking her in the evening she was still doing well She has hypothermia and started on Luis hugger Plan of care discussed with the patient daughter and she is agreeable. 12/07 Patient mentation is back to normal today, fully awake and oriented at baseline and this is confirmed by the daughter at bedside which have the same impression Patient main complaint in her left shoulder pain, patient thinks is still dislocated and she was requesting herself to repeat the shoulder x-ray which showed persistent subluxation/dislocation of the left shoulder and a new minimally displaced left humeral head fracture. This information was discussed with orthopedic team with Dr. Daly who informed staff no need for any surgical intervention and continue monitoring. Patient using the sling when she is up from bed as instructed Patient delirium yesterday was thought secondary to multifactorial for example urinary retention status post Guerra catheter but the main culprit thought was the hypoglycemia, initially she was on Lantus 28 units we have to drop it down gradually to 25 units and yesterday down to 20 units and despite that this morning her glucose was still on the low side at 50s indicating that probably patient problems were due to hypoglycemia as well, we lowered the Lantus tonight to 15 units with close monitoring Our cardiology team recommended to continue hyoscyamine and follow-up outpatient with Dr. Gongora. Discontinue atenolol upon discharge and the sign of the case 12/08 Patient today fully awake and oriented, she is mainly complaining some pain in her left shoulder, does not look dislocated Patient was evaluated by orthopedic team and recommended no surgical interven tion as she is high risk for risk and poor surgical candidate She is afraid she will not be independent like before. 12/09 Patient today feels much better She still have some pain in her left shoulder at the fracture and dislocation/relocation site, bruise improving patient resumed her Eliquis and aspirin Patient able to use her left upper extremity to certain degree. Orthopedic team recommended no surgical intervention and patient is agreeable with this recommendation Previously was independent with plan to go to rehab Guerra catheter in place for acute urinary retention Sugar improved after we lowered her insulin to 15 units almost half of her home dose However sodium trending down to 123 today. We discontinued Lasix 10 mg daily also we will put the patient on a fluid restriction and consult nephrology team 12/10/2024 Patient is seen in follow-up continues to be confused and continues with indwelling Guerra catheter for retention. Patient is asleep and minimally arousable and falls asleep easily. Patient sodium is 124 today and IV Lasix has been discontinued. Patient is being followed by nephrology and will discuss with them regarding treatment plan moving forward. Continue monitoring Accu- Cheks AC and at bedtime Review of systems: Unable to completely assess as patient is lethargic All medications have been reviewed Active Medications Acetaminophen (Acetaminophen Tab 325 Mg Tab) 650 mg PO Q6HR PRN PRN Reason: Fever and/ or Pain Last Admin: 12/11/24 02:47 Dose: 650 mg Amlodipine Besylate (Amlodipine 10 Mg Tab) 10 mg PO DAILY@1200 [facility] Last Admin: 12/10/24 11:18 Dose: 10 mg Apixaban (Apixaban 5 Mg Tab) 5 mg PO BID [facility]; Protocol Last Admin: 12/10/24 22:26 Dose: 5 mg Aspirin (Aspirin 81 Mg) 81 mg PO DAILY [facility] Last Admin: 12/10/24 07:58 Dose: 81 mg Dextrose/Water (Dextrose 50% Syringe 50 Ml) 25 ml IVP PER PROTOCOL PRN; Protocol PRN Reason: Hypoglycemia Last Admin: 12/06/24 06:35 Dose: 25 ml Dextrose/Water (Dextrose 50% Syringe 50 Ml) 50 ml IVP PER PROTOCOL PRN; Protocol PRN Reason: Hypoglycemia Glucose (Dextrose Gel 15 Gm/37.5 Ml Tube) 15 gm PO TID PRN PRN Reason: Blood Sugar - Low Hyoscyamine (Hyoscyamine Sulfate 0.375 Mg Tab.Er.12h) 0.375 mg PO BID [facility] Last Admin: 12/10/24 22:27 Dose: 0.375 mg Insulin Glargine (Insulin Glargine (Lantus) 100 Unit/Ml Syr) 15 unit SQ HS@2100 [facility] Last Admin: 12/10/24 22:26 Dose: 15 unit Insulin Human Lispro (Insulin Lispro (Humalog) 100 Unit/Ml 10 Ml Vl) 0 unit SQ ACHS [facility]; Protocol Last Admin: 12/11/24 06:20 Dose: 2 unit Lisinopril (Lisinopril 10 Mg Tab) 10 mg PO DAILY [facility] Last Admin: 12/10/24 07:58 Dose: 10 mg Melatonin (Melatonin 3 Mg Tablet) 3 mg PO HS PRN PRN Reason: Insomnia Last Admin: 12/09/24 21:08 Dose: 3 mg Naloxone HCl (Naloxone 0.4 Mg/Ml 1 Ml Vial) 0.2 mg IV Q2M PRN PRN Reason: Opioid Reversal Ondansetron HCl (Ondansetron 4 Mg/2 Ml Vial) 4 mg IVP Q8HR PRN PRN Reason: Nausea And Vomiting Pantoprazole Sodium (Pantoprazole 40 Mg Tablet) 40 mg PO DAILY@0700 [facility] Last Admin: 12/11/24 06:19 Dose: 40 mg Quetiapine Fumarate (Quetiapine 25 Mg Tab) 12.5 mg PO HS [facility] Last Admin: 12/10/24 22:26 Dose: 12.5 mg Tamsulosin HCl (Tamsulosin 0.4 Mg Cap.Er.24h) 0.4 mg PO PC-SUPPER [facility] Last Admin: 12/10/24 17:46 Dose: 0.4 mg Urea (Urea 15 Gm Powd.Pack) 15 gm PO BID [facility] Last Admin: 12/10/24 22:27 Dose: 15 gm Physical exam: -GENERAL: The patient is alert and more sleepy , lethargic, somewhat arousable but falls asleep easily not in any acute distress. Well developed, ill-appe aring, elderly appearing. Morbidly obese HEENT: Pupils are round and equally reacting to light. EOMI. No scleral icterus. No conjunctival pallor. Normocephalic, atraumatic. No pharyngeal erythema. No thyromegaly. CARDIOVASCULAR: S1 and S2 muffled PULMONARY: Diminished breath sounds bilaterally otherwise chest is clear to auscultation, no wheezing , no crackles. ABDOMEN: Soft, obese, nontender, nondistended, normoactive bowel sounds. No palpable organomegaly. MUSCULOSKELETAL: No joint swelling or deformity. -EXTREMITIES: No cyanosis, clubbing, or pedal edema. Left shoulder prominent and tender patient cannot raise her left arm above her head NEUROLOGICAL: Gross neurological examination did not reveal any focal deficits. Diffusely weak SKIN: No rashes. no petechiae. Assessment: 1. Fall with left shoulder pain. Repeat shoulder x-ray showing persistent dislocation/subluxation of the humeral head relative to the glenoid and minimally displaced acute left humeral head fracture -X-ray of the shoulder reveals anterior dislocation of the humeral head relative to glenoid - Conscious sedation was done in ED and patient underwent closed reduction; postreduction x-ray was done which revealed improved anatomical alignment; patient's arm remains in sling -Orthopedic team consult: No surgical intervention planned at this time 2. Symptomatic bradycardia; patient is currently on Tenormin - Hold atenolol - Hyoscyamine started - Cardiology team sign off the case, they recommended sleep study as an outpatient and follow-up with Dr. Gongora in 1 week upon discharge 3. Hyperkalemia; currently not on any supplement; possibly associated with DESIREA inhibitor use; will monitor. Continue low potassium diet 4. Elevated liver enzymes - Total bilirubin elevated at 1.5 with mild elevation of AST/ALT; will repeat liver enzymes with further workup if continuing to trend 5. Hypertension; continue home dose of Norvasc 10 mg daily; hold atenolol; lisinopril 10 mg daily 6. Diabetes mellitus, with hypoglycemia with long-term insulin use; continue home dose of Lantus 28 units SQ nightly; monitor Accu-Cheks q. CHS with insulin sliding scale - Lower Lantus to 15 units 7. Depression; Zoloft 25 mg daily 8. Metabolic encephalopathy versus altered mental status. Ordered urgent CT of the brain to rule out intracranial bleed/stroke, check ammonia level venous blood gas and all labs. Check urine analysis. Continue with neurocheck if no improvement will consider further workup or consult prognosis is guarded 9. Acute urinary retention status post Guerra catheter. Continue Flomax. Urinalysis is benign 10. Hyponatremia, sodium 126. Nephrology consulted and pending GI prophylaxis DVT prophylaxis; SCDs/Eliquis CODE STATUS; no code Plan: Patient was on IV Lasix which was discontinued as patient continues to have significant hyponatremia, 126 today and nephrology consulted Continue indwelling Guerra catheter and follow-up on repeat labs Recommend PT/OT therapy evaluation as plan will be for patient to go to [facility] on discharge May use Seroquel at night as needed for agitation and insomnia Recommend frequent reorientation during the day Orthopedics has evaluated the patient recommending conservative management with no plans of surgical intervention at this time Continue indwelling Guerra catheter for now for retention, may trial void once patient is more mobile Due to multiple complex medical issues, overall prognosis is guarded The impression and plan of care has been dictated by Jeanette Serrano, Nurse Practitioner as directed. Dr. Mono MD I have performed a history and examination and MDM of this patient, discussed the same with the dictator, and agree with the dictator's assessment and plan as written ,documented as a scribe. Based on total visit time, I have performed more than 50% of the visit. Objective - Vital Signs Vital signs: Vital Signs Temp 98.2 F 12/11/24 04:56 Pulse 59 L 12/11/24 03:14 Resp 18 12/11/24 03:14 BP 127/57 12/11/24 03:14 Pulse Ox 93 L 12/11/24 03:14 FiO2 Intake & Output 12/10/24 12/11/24 12/11/24 18:59 06:59 18:59 Intake Total 220 20 Output Total 1600 200 Balance -1380 -180 Intake: IV 20 20 Invasive Line 4 20 20 Oral 200 Output: Urine 1600 200 Other: Voiding Method Indwelling Catheter Indwelling Catheter - Labs CBC & Chem 7: 12/11/24 06:09 12/11/24 06:09 Labs: Abnormal Lab Results - Last 24 Hours (Table) 12/10/24 12/10/24 12/10/24 Range/Units 06:50 11:21 16:35 WBC (4.50-10.00) 10*3/uL RBC (4.10-5.20) 10*6/uL Hgb (12.0-15.0) g/dL Hct (37.2-46.3) % Plt Count (140-440) 10*3/uL Immature Gran # (0.00-0.04) 10*3/uL Neutrophils # (1.80-7.70) 10*3/uL Monocytes # (0.20-1.00) 10*3/uL Eosinophils # (0.04-0.35) 10*3/uL Sodium (137-145) mmol/L Potassium (3.5-5.1) mmol/L Chloride (98-107) mmol/L Carbon Dioxide (22-30) mmol/L BUN (7-17) mg/dL Creatinine (0.52-1.04) mg/dL Glucose (74-99) mg/dL POC Glucose (mg/dL) 194 H 178 H (70-110) mg/dL Osmolality 273 L (275-295) mOsm/kg 12/10/24 12/11/24 12/11/24 Range/Units 20:07 05:51 06:09 WBC 12.06 H (4.50-10.00) 10*3/uL RBC 3.67 L (4.10-5.20) 10*6/uL Hgb 11.2 L (12.0-15.0) g/dL Hct 32.9 L (37.2-46.3) % Plt Count 480 H (140-440) 10*3/uL Immature Gran # 0.15 H (0.00-0.04) 10*3/uL Neutrophils # 8.53 H (1.80-7.70) 10*3/uL Monocytes # 1.38 H (0.20-1.00) 10*3/uL Eosinophils # 0.00 L (0.04-0.35) 10*3/uL Sodium (137-145) mmol/L Potassium (3.5-5.1) mmol/L Chloride (98-107) mmol/L Carbon Dioxide (22-30) mmol/L BUN (7-17) mg/dL Creatinine (0.52-1.04) mg/dL Glucose (74-99) mg/dL POC Glucose (mg/dL) 278 H 212 H (70-110) mg/dL Osmolality (275-295) mOsm/kg 07/01/25 Range/Units 06:09 WBC (4.50-10.00) 10*3/uL RBC (4.10-5.20) 10*6/uL Hgb (12.0-15.0) g/dL Hct (37.2-46.3) % Plt Count (140-440) 10*3/uL Immature Gran # (0.00-0.04) 10*3/uL Neutrophils # (1.80-7.70) 10*3/uL Monocytes # (0.20-1.00) 10*3/uL Eosinophils # (0.04-0.35) 10*3/uL Sodium 126 L (137-145) mmol/L Potassium 5.3 H (3.5-5.1) mmol/L Chloride 95 L (98-107) mmol/L Carbon Dioxide 20 L (22-30) mmol/L BUN 46 H (7-17) mg/dL Creatinine 1.11 H (0.52-1.04) mg/dL Glucose 190 H (74-99) mg/dL POC Glucose (mg/dL) (70-110) mg/dL Osmolality (275-295) mOsm/kg
--- NOTE | 2024-12-11 10:13 | P.PN ---
Subjective Patient is seen in follow-up for hyponatremia. Sodium level 126. Resting in bed. Not a very reliable historian. Nonoliguric. Vital signs are stable. General: No acute distress. HEENT: Head exam is unremarkable. LUNGS: No audible rhonchi or wheezes. HEART: Rate and Rhythm are regular. ABDOMEN: Nontender. EXTREMITITES: No edema. Objective - Vital Signs Vital signs: Vital Signs Temp 98.3 F 12/11/24 09:21 Pulse 58 L 12/11/24 09:21 Resp 18 12/11/24 09:21 BP 126/62 12/11/24 09:21 Pulse Ox 93 L 12/11/24 09:21 FiO2 Intake & Output 12/10/24 12/11/24 12/11/24 18:59 06:59 18:59 Intake Total 220 20 10 Output Total 1600 200 Balance -1380 -180 10 Intake: IV 20 20 10 Invasive Line 4 20 20 10 Oral 200 Output: Urine 1600 200 Other: Voiding Method Indwelling Catheter Indwelling Catheter Indwelling Catheter - Labs CBC & Chem 7: 12/11/24 06:09 12/11/24 06:09 Labs: Abnormal Lab Results - Last 24 Hours (Table) 12/10/24 12/10/24 12/10/24 Range/Units 06:50 11:21 16:35 WBC (4.50-10.00) 10*3/uL RBC (4.10-5.20) 10*6/uL Hgb (12.0-15.0) g/dL Hct (37.2-46.3) % Plt Count (140-440) 10*3/uL Immature Gran # (0.00-0.04) 10*3/uL Neutrophils # (1.80-7.70) 10*3/uL Monocytes # (0.20-1.00) 10*3/uL Eosinophils # (0.04-0.35) 10*3/uL Sodium (137-145) mmol/L Potassium (3.5-5.1) mmol/L Chloride (98-107) mmol/L Carbon Dioxide (22-30) mmol/L BUN (7-17) mg/dL Creatinine (0.52-1.04) mg/dL Glucose (74-99) mg/dL POC Glucose (mg/dL) 194 H 178 H (70-110) mg/dL Osmolality 273 L (275-295) mOsm/kg 12/10/24 12/11/24 12/11/24 Range/Units 20:07 05:51 06:09 WBC 12.06 H (4.50-10.00) 10*3/uL RBC 3.67 L (4.10-5.20) 10*6/uL Hgb 11.2 L (12.0-15.0) g/dL Hct 32.9 L (37.2-46.3) % Plt Count 480 H (140-440) 10*3/uL Immature Gran # 0.15 H (0.00-0.04) 10*3/uL Neutrophils # 8.53 H (1.80-7.70) 10*3/uL Monocytes # 1.38 H (0.20-1.00) 10*3/uL Eosinophils # 0.00 L (0.04-0.35) 10*3/uL Sodium (137-145) mmol/L Potassium (3.5-5.1) mmol/L Chloride (98-107) mmol/L Carbon Dioxide (22-30) mmol/L BUN (7-17) mg/dL Creatinine (0.52-1.04) mg/dL Glucose (74-99) mg/dL POC Glucose (mg/dL) 278 H 212 H (70-110) mg/dL Osmolality (275-295) mOsm/kg 12/11/24 Range/Units 06:09 WBC (4.50-10.00) 10*3/uL RBC (4.10-5.20) 10*6/uL Hgb (12.0-15.0) g/dL Hct (37.2-46.3) % Plt Count (140-440) 10*3/uL Immature Gran # (0.00-0.04) 10*3/uL Neutrophils # (1.80-7.70) 10*3/uL Monocytes # (0.20-1.00) 10*3/uL Eosinophils # (0.04-0.35) 10*3/uL Sodium 126 L (137-145) mmol/L Potassium 5.3 H (3.5-5.1) mmol/L Chloride 95 L (98-107) mmol/L Carbon Dioxide 20 L (22-30) mmol/L BUN 46 H (7-17) mg/dL Creatinine 1.11 H (0.52-1.04) mg/dL Glucose 190 H (74-99) mg/dL POC Glucose (mg/dL) (70-110) mg/dL Osmolality (275-295) mOsm/kg Assessment and Plan Plan: Assessment: 1. Hyponatremia. Appears euvolemic at this time. TSH normal. Cortisol level not low. Serum osmolality 273. Sodium level 126 today. 2. Recurrent falls. 3. Left shoulder dislocation with concern for rotator cuff tear being followed by orthopedic surgery. 4. Benign hypertension. 5. Diabetes mellitus. Plan: Maintain fluid restriction. Maintain urea. Encouraged oral intake. Decrease dose of lisinopril to 5 mg once daily. Blood glucose control. Repeat labs in the morning.
[2024-12-11 11:50] LABS: Glucose,Whole Blood 226 mg/dL (70-110)
[2024-12-11 16:47] LABS: Glucose,Whole Blood 166 mg/dL (70-110)
[2024-12-11 20:21] LABS: Glucose,Whole Blood 197 mg/dL (70-110)
[2024-12-11] MEDS: INSULIN GLARGINE (LANTUS) 100 UNIT/ML SYR SQ SCH (20:35)
[2024-12-11] MEDS: QUEtiapine 25 MG TAB PO SCH (20:35)
--- NOTE | 2024-12-12 04:50 | P.PN ---
Subjective Progress Note Date: 12/11/24 84-year-old female sent from [facility] for increased bruising on left side. Patient is a poor historian and says she fell last week but is unsure how. She cannot specifically remember any falls or injuries. She is complaining of left shoulder pain however is unsure when this started. Denies chest pain, shortness of breath, abdominal pain, headache, vision changes. She is on thinners. She was recently admitted approximately 2 weeks ago for weakness and multiple falls at which time she was placed at [facility]. Patient has a history remarkable for atrial fibrillation, CVA, diabetes mellitus, hypertension, hyperlipidemia. In the ED heart rate is found to be in the 40s however patient is asymptomatic. Blood pressure 129/82. On physical examination there is diffuse left-sided bruising. Neurovascularly intact to all extremities. -Left shoulder x-ray reveals questionable anterior dislocation of the humeral head relative the glenoid. -CT chest/abdomen/pelvis reveals no acute traumatic process. CT brain and C- spine reveals no acute process. In the ED conscious sedation performed for closed reduction, postreduction x- rays revealed improved anatomical alignment. Patient was placed in a sling. Patient will be admitted to medicine for bradycardia with cardiology consult. 12/03 This is a pleasant 84 years old female who presents from [place] for increased bruise on the left side. There is reports of falling last week with left shoulder pain. Also patient was found to have heart rate in 40s Patient close reduction of her left anterior dislocated shoulder, she still have some pain tenderness and deformity in her left shoulders with limitation of movement therefore we are going to consult orthopedic team Patient heart rate in 40s and low 50s, currently asymptomatic no chest pain dyspnea or dizziness. She was on metoprolol 25 mg 3 times daily which is currently on hold Repeat shoulder x-ray yesterday showing close reduction of the shoulder pretty well CT of the head and neck showing no acute process and CT of the chest abdominal pelvis showing cardiomegaly small bilateral pleural effusion with no acute abnormality. I reviewed the images by myself and agree. Cardiology following closely. We are going to consult orthopedic team 12/04 Patient heart rate is improved and currently in 60s, patient with no symptom cardiology following closely Patient still complaining from her left shoulder pain which is looks somewhat controlled, movement little better less deformity her sling is in place We are pending for orthopedic evaluation who saw the patient later on today and recommended hip and pelvic x-ray showing bilateral osteoarthritis of the hips but it is mild associated with no displaced fractures. Patient also complains from extensive bruise in her left breast and left chest down to the abdomen secondary to her shoulder problem We may hold 1 or 2 doses of Eliquis. Also patient on aspirin 81 mg Hemoglobin A1c is 8.8, patient is on Lantus 28 units. Patient cannot tolerate metformin because of GI symptom. Patient would be benefit from outpatient follow-up with drill press operator numerical control. 12/05 Patient clinically doing well and is improving Her main complaint is her left shoulder. Denies any other new complaint no chest pain dyspnea or dizziness Heart rate is improved in 60s after holding metoprolol and currently patient is asymptomatic regarding this Cardiology signed off the case Orthopedic team evaluated the patient and cleared her for discharge with recommendation for close outpatient follow-up in 1 to 2 weeks But time she was not clear it was late for the patient to [facility] Possible discharge tomorrow morning Resume Eliquis tomorrow morning Her glucose was on the low side we lowered the dose of Lantus 28 units down to 25 units with close monitoring. Glucose gel as needed for hypoglycemia 12/06 This morning I was paged by the nurse that patient is becoming more bradycardic and heart rate dropped to 30s, cardiology team reconsulted. Hyoscyamine was added Patient is more sleepy today Currently blood pressure 179/81. Patient is afebrile. Sugar was on the low side 68 136, 59 and 81. We will give her one-time dose of D50 percent Repeat all labs today including ammonia levels venous blood gas. Check uri nalysis and urine culture. Will repeat CT of the brain Daughter at bedside I discussed the plan with her. She verbalized understanding acceptance Continue with aspirin and Plavix. Continue with hyoscyamine added by cardiology team Continue with blood pressure medications close monitoring 12/06 I came wire bound box machine operator to see the patient she was more obtained none waking up for tactile or verbal stimuli, she mumbles only does not open her eyes or follow command does not answer questions. She just sleeps in the bed, daughter at bedside, CT of the brain ordered stat which came back negative for acute process. Also we did extensive workup including blood test CBC BMP LFT With sodium 132, potassium 5.3 BUN 34 creatinine 0.9, lactic acid 0.8 Urinalysis normal. Bilirubin 1.5, liver enzymes very mildly elevated. Procalcitonin is negative less than 0.20. Bladder scan showing bladder retention more than 500 cc and Guerra catheter was placed. Her blood pressure was mildly elevated with systolic 1 7180 improved to 1 1:30 pill of oral hydralazine 25 mg and now stable. As sugar was noticed low in the morning she was given dextrose 50 ampoule x 1, her sugar improved to 120s and her mentation improved, I can see her again now she is awake answers my questions complaining from pain in her upper back and headache but she looks calm not in distress. She has some mild bruise behind her ear but no overt bruising new, she still has extensive bruise in her left breast left side of the chest down to the left side of the abdomen. Patient remains on aspirin started by cardiology on Eliquis 5 m g. On checking her in the evening she was still doing well She has hypothermia and started on Luis hugger Plan of care discussed with the patient daughter and she is agreeable. 12/07 Patient mentation is back to normal today, fully awake and oriented at baseline and this is confirmed by the daughter at bedside which have the same impression Patient main complaint in her left shoulder pain, patient thinks is still dislocated and she was requesting herself to repeat the shoulder x-ray which showed persistent subluxation/dislocation of the left shoulder and a new minimally displaced left humeral head fracture. This information was discussed with orthopedic team with Dr. Daly who informed staff no need for any surgical intervention and continue monitoring. Patient using the sling when she is up from bed as instructed Patient delirium yesterday was thought secondary to multifactorial for example urinary retention status post Guerra catheter but the main culprit thought was the hypoglycemia, initially she was on Lantus 28 units we have to drop it down gradually to 25 units and yesterday down to 20 units and despite that this morning her glucose was still on the low side at 50s indicating that probably patient problems were due to hypoglycemia as well, we lowered the Lantus tonight to 15 units with close monitoring Our cardiology team recommended to continue hyoscyamine and follow-up outpatient with Dr. Gongora. Discontinue atenolol upon discharge and the sign of the case 12/08 Patient today fully awake and oriented, she is mainly complaining some pain in her left shoulder, does not look dislocated Patient was evaluated by orthopedic team and recommended no surgical interven tion as she is high risk for risk and poor surgical candidate She is afraid she will not be independent like before. 12/09 Patient today feels much better She still have some pain in her left shoulder at the fracture and dislocation/relocation site, bruise improving patient resumed her Eliquis and aspirin Patient able to use her left upper extremity to certain degree. Orthopedic team recommended no surgical intervention and patient is agreeable with this recommendation Previously was independent with plan to go to rehab Guerra catheter in place for acute urinary retention Sugar improved after we lowered her insulin to 15 units almost half of her home dose However sodium trending down to 123 today. We discontinued Lasix 10 mg daily also we will put the patient on a fluid restriction and consult nephrology team 12/10/2024 Patient is seen in follow-up continues to be confused and continues with indwelling Guerra catheter for retention. Patient is asleep and minimally arousable and falls asleep easily. Patient sodium is 124 today and IV Lasix has been discontinued. Patient is being followed by nephrology and will discuss with them regarding treatment plan moving forward. Continue monitoring Accu- Cheks AC and at bedtime 12/11/2024 Patient is seen in follow-up today continues to be confused with concerns of hospital-acquired delirium recommend opening the shades and frequent reorientation. Patient continues with low sodium and nephrology consulted m aintained on urea and recommends fluid restrictions. Patient to continue with indwelling Guerra catheter for now as patient was retaining and may need trial of void once more mobile. Encouraged increase activity as tolerated and need updated PT/OT therapy evaluation and is for patient to go to [facility]. Will follow-up on repeat labs and discuss with nephrology regarding discharge planning if sodium is improved. Review of systems: Unable to completely assess as patient is lethargic All medications have been reviewed Physical exam: GENERAL: The patient is alert and remains sleepy , lethargic, somewhat arousable but falls asleep easily not in any acute distress. Well developed, ill-tee earing, elderly appearing. Morbidly obese HEENT: Pupils are round and equally reacting to light. EOMI. No scleral icterus. No conjunctival pallor. Normocephalic, atraumatic. No pharyngeal erythema. No thyromegaly. CARDIOVASCULAR: S1 and S2 muffled PULMONARY: Diminished breath sounds bilaterally otherwise chest is clear to auscultation, no wheezing , no crackles. ABDOMEN: Soft, obese, nontender, nondistended, normoactive bowel sounds. No palpable organomegaly. MUSCULOSKELETAL: No joint swelling or deformity. EXTREMITIES: No cyanosis, clubbing, or pedal edema. Left shoulder prominent and tender patient cannot raise her left arm above her head NEUROLOGICAL: Gross neurological examination did not reveal any focal deficits. Diffusely weak SKIN: No rashes. no petechiae. Assessment: -Fall with left shoulder pain. Repeat shoulder x-ray showing persistent dislocation/subluxation of the humeral head relative to the glenoid and minimally displaced acute left humeral head fracture -X-ray of the shoulder reveals anterior dislocation of the humeral head relative to glenoid - Conscious sedation was done in ED and patient underwent closed reduction; postreduction x-ray was done which revealed improved anatomical alignment; patient's arm remains in sling -Orthopedic team consult: No surgical intervention planned at this time -Symptomatic bradycardia; patient is currently on Tenormin - Hold atenolol - Hyoscyamine started - Cardiology team sign off the case, they recommended sleep study as an outpatient and follow-up with Dr. Gongora in 1 week upon discharge -Hyperkalemia; currently not on any supplement; possibly associated with DESIRAE inhibitor use; will monitor. Continue low potassium diet -Elevated liver enzymes - Total bilirubin elevated at 1.5 with mild elevation of AST/ALT; will repeat liver enzymes with further workup if continuing to trend -Hypertension; continue home dose of Norvasc 10 mg daily; hold atenolol; lisinopril being reduced to 5 mg daily per nephrology - Diabetes mellitus, with hypoglycemia with long-term insulin use; continue home dose of Lantus 28 units SQ nightly; monitor Accu-Cheks q. CHS with insulin sliding scale - Lower Lantus to 15 units - Depression; Zoloft 25 mg daily - Metabolic encephalopathy versus altered mental status. Ordered urgent CT of the brain to rule out intracranial bleed/stroke, check ammonia level venous blood gas and all labs. Check urine analysis. Continue with neurocheck if no improvement will consider further workup or consult prognosis is guarded - Acute urinary retention status post Guerra catheter. Continue Flomax. Urinalysis is benign - Hyponatremia, sodium 126. Nephrology following. GI prophylaxis DVT prophylaxis; SCDs/Eliquis CODE STATUS; no code Plan: Patient was on IV Lasix which was discontinued as patient continues to have significant hyponatremia, 126 today and nephrology following and will continue with fluid restrictions and adjusting lisinopril recommend follow-up labs in the morning Continue indwelling Guerra catheter and may trial void once more mobile outpatient Recommend PT/OT therapy evaluation as plan will be for patient to go to [facility] on discharge May use Seroquel at night as needed for agitation and insomnia Recommend frequent reorientation during the day Orthopedics has evaluated the patient recommending conservative management with no plans of surgical intervention at this time Will discuss with case management regarding discharge planning to [facility] Due to multiple complex medical issues, overall prognosis is guarded The impression and plan of care has been dictated by Jeanette Serrano, Nurse Practitioner as directed. Dr. Mono MD I have performed a history and examination and MDM of this patient, discussed the same with the dictator, and agree with the dictator's assessment and plan as written ,documented as a scribe. Based on total visit time, I have performed more than 50% of the visit. Objective - Vital Signs Vital signs: Vital Signs Temp 98.2 F 12/11/24 04:56 Pulse 59 L 12/11/24 03:14 Resp 18 12/11/24 03:14 BP 127/57 12/11/24 03:14 Pulse Ox 93 L 12/11/24 03:14 FiO2 Intake & Output 12/10/24 12/11/24 12/11/24 18:59 06:59 18:59 Intake Total 220 20 Output Total 1600 200 Balance -1380 -180 Intake: IV 20 20 Invasive Line 4 20 20 Oral 200 Output: Urine 1600 200 Other: Voiding Method Indwelling Catheter Indwelling Catheter - Labs CBC & Chem 7: 12/11/24 06:09 12/11/24 06:09 Labs: Abnormal Lab Results - Last 24 Hours (Table) 12/10/24 12/10/24 12/10/24 Range/Units 06:50 11:21 16:35 WBC (4.50-10.00) 10*3/uL RBC (4.10-5.20) 10*6/uL Hgb (12.0-15.0) g/dL Hct (37.2-46.3) % Plt Count (140-440) 10*3/uL Immature Gran # (0.00-0.04) 10*3/uL Neutrophils # (1.80-7.70) 10*3/uL Monocytes # (0.20-1.00) 10*3/uL Eosinophils # (0.04-0.35) 10*3/uL Sodium (137-145) mmol/L Potassium (3.5-5.1) mmol/L Chloride (98-107) mmol/L Carbon Dioxide (22-30) mmol/L BUN (7-17) mg/dL Creatinine (0.52-1.04) mg/dL Glucose (74-99) mg/dL POC Glucose (mg/dL) 194 H 178 H (70-110) mg/dL Osmolality 273 L (275-295) mOsm/kg 12/10/24 12/11/24 12/11/24 Range/Units 20:07 05:51 06:09 WBC 12.06 H (4.50-10.00) 10*3/uL RBC 3.67 L (4.10-5.20) 10*6/uL Hgb 11.2 L (12.0-15.0) g/dL Hct 32.9 L (37.2-46.3) % Plt Count 480 H (140-440) 10*3/uL Immature Gran # 0.15 H (0.00-0.04) 10*3/uL Neutrophils # 8.53 H (1.80-7.70) 10*3/uL Monocytes # 1.38 H (0.20-1.00) 10*3/uL Eosinophils # 0.00 L (0.04-0.35) 10*3/uL Sodium (137-145) mmol/L Potassium (3.5-5.1) mmol/L Chloride (98-107) mmol/L Carbon Dioxide (22-30) mmol/L BUN (7-17) mg/dL Creatinine (0.52-1.04) mg/dL Glucose (74-99) mg/dL POC Glucose (mg/dL) 278 H 212 H (70-110) mg/dL Osmolality (275-295) mOsm/kg 12/11/24 Range/Units 06:09 WBC (4.50-10.00) 10*3/uL RBC (4.10-5.20) 10*6/uL Hgb (12.0-15.0) g/dL Hct (37.2-46.3) % Plt Count (140-440) 10*3/uL Immature Gran # (0.00-0.04) 10*3/uL Neutrophils # (1.80-7.70) 10*3/uL Monocytes # (0.20-1.00) 10*3/uL Eosinophils # (0.04-0.35) 10*3/uL Sodium 126 L (137-145) mmol/L Potassium 5.3 H (3.5-5.1) mmol/L Chloride 95 L (98-107) mmol/L Carbon Dioxide 20 L (22-30) mmol/L BUN 46 H (7-17) mg/dL Creatinine 1.11 H (0.52-1.04) mg/dL Glucose 190 H (74-99) mg/dL POC Glucose (mg/dL) (70-110) mg/dL Osmolality (275-295) mOsm/kg
[2024-12-12 06:15] LABS: Glucose,Whole Blood 65 mg/dL (70-110)
[2024-12-12 06:50] LABS: Glucose,Whole Blood 123 mg/dL (70-110)
[2024-12-12 08:23] LABS: Basophils # (A) 0.08 10*3/uL (0.00-0.10); Basophils % (A) 0.9 %; Eosinophils # (A) 0.48 10*3/uL (0.04-0.35); Eosinophils % (A) 5.6 %; HCT 29.8 % (37.2-46.3); HGB 10.1 g/dL (12.0-15.0); Lymphocytes # (A) 1.60 10*3/uL (0.90-5.00); Lymphocytes % (A) 18.6 %; MCH 30.9 pg (27.0-32.0); MCHC 33.9 g/dL (32.0-37.0); MCV 91.1 fL (80.0-97.0); Monocytes # (A) 1.28 10*3/uL (0.20-1.00); Monocytes % (A) 14.9 %; Neutrophils # (A) 5.09 10*3/uL (1.80-7.70); Neutrophils % (A) 59.1 %; RBC 3.27 10*6/uL (4.10-5.20); RDW 14.6 % (11.5-14.5); WBC 8.61 10*3/uL (4.50-10.00)
[2024-12-12 08:33] LABS: ALT 32 U/L (4-34); African American GFR (CKD) 61 (>60 ml/min/1.73 sqM); Albumin 2.8 g/dL (3.5-5.0); Anion Gap 4 mmol/L; Blood Urea Nitrogen 60 mg/dL (7-17); Calcium 9.6 mg/dL (8.4-10.2); Carbon Dioxide 25 mmol/L (22-30); Chloride 102 mmol/L (98-107); Glucose 90 mg/dL (74-99); Non-African American GFR(CKD) 53 (>60 ml/min/1.73 sqM); Sodium 131 mmol/L (137-145); Total Protein 5.0 g/dL (6.3-8.2)
[2024-12-12 08:43] LABS: AST 59 U/L (14-36); Alkaline Phosphatase 119 U/L (38-126); Magnesium 1.9 mg/dL (1.6-2.3); Potassium 4.5 mmol/L (3.5-5.1)
--- NOTE | 2024-12-12 10:00 | P.PN ---
Subjective Patient is seen in follow-up for hyponatremia. Sodium level improved to 131. Resting in bed. Not a very reliable historian. Nonoliguric. Vital signs are stable. General: No acute distress. HEENT: Head exam is unremarkable. LUNGS: No audible rhonchi or wheezes. HEART: Rate and Rhythm are regular. ABDOMEN: Nontender. EXTREMITITES: No edema. Objective - Vital Signs Vital signs: Vital Signs Temp 97.4 F L 12/12/24 08:00 Pulse 60 12/12/24 08:00 Resp 16 12/12/24 08:00 BP 96/43 12/12/24 08:00 Pulse Ox 94 L 12/12/24 08:00 FiO2 Intake & Output 12/11/24 12/12/24 12/12/24 18:59 06:59 18:59 Intake Total 280 10 Output Total 1000 1050 Balance -720 -1040 Weight 96.4 kg Intake: IV 20 10 Invasive Line 4 20 Invasive Line 5 10 Oral 260 Output: Urine 1000 1050 Other: Voiding Method Indwelling Catheter Indwelling Catheter - Labs CBC & Chem 7: 12/12/24 07:14 12/12/24 07:14 Labs: Abnormal Lab Results - Last 24 Hours (Table) 12/11/24 12/11/24 12/11/24 Range/Units 01:27 11:49 16:45 RBC (4.10-5.20) 10*6/uL Hgb (12.0-15.0) g/dL Hct (37.2-46.3) % Immature Gran # (0.00-0.04) 10*3/uL Sodium (137-145) mmol/L BUN (7-17) mg/dL POC Glucose (mg/dL) 226 H 166 H (70-110) mg/dL AST (14-36) U/L Total Protein (6.3-8.2) g/dL Albumin (3.5-5.0) g/dL Ur Random Sodium <20 L (40-220) mmol/L 12/11/24 12/12/24 12/12/24 Range/Units 20:19 06:14 06:48 RBC (4.10-5.20) 10*6/uL Hgb (12.0-15.0) g/dL Hct (37.2-46.3) % Immature Gran # (0.00-0.04) 10*3/uL Sodium (137-145) mmol/L BUN (7-17) mg/dL POC Glucose (mg/dL) 197 H 65 L 123 H (70-110) mg/dL AST (14-36) U/L Total Protein (6.3-8.2) g/dL Albumin (3.5-5.0) g/dL Ur Random Sodium (40-220) mmol/L 12/12/24 12/12/24 Range/Units 07:14 07:14 RBC 3.27 L (4.10-5.20) 10*6/uL Hgb 10.1 L (12.0-15.0) g/dL Hct 29.8 L (37.2-46.3) % Immature Gran # 0.08 H (0.00-0.04) 10*3/uL Sodium 131 L (137-145) mmol/L BUN 60 H (7-17) mg/dL POC Glucose (mg/dL) (70-110) mg/dL AST 59 H (14-36) U/L Total Protein 5.0 L (6.3-8.2) g/dL Albumin 2.8 L (3.5-5.0) g/dL Ur Random Sodium (40-220) mmol/L Assessment and Plan Plan: Assessment: 1. Hyponatremia. Appears euvolemic at this time. TSH normal. Cortisol level not low. Serum osmolality 273. Sodium level improved to 131 today. 2. Recurrent falls. 3. Left shoulder dislocation with concern for rotator cuff tear being followed by orthopedic surgery. 4. Benign hypertension. Blood pressure on the lower end. 5. Diabetes mellitus. Plan: Maintain fluid restriction. Maintain urea. Encouraged oral intake. Stop lisinopril as blood pressure is on the lower end. Blood glucose control. Repeat labs in the morning.
[2024-12-12 11:15] LABS: RBC Morphology Normal
[2024-12-12 11:16] LABS: Platelet Count 379 10*3/uL (140-440)
[2024-12-12 11:43] LABS: Glucose,Whole Blood 73 mg/dL (70-110)
[2024-12-12] MEDS ORDERED: QUEtiapine 25 MG TAB PO PRN (13:45)
[2024-12-12 16:35] LABS: Glucose,Whole Blood 69 mg/dL (70-110)
[2024-12-12 19:11] LABS: Glucose,Whole Blood 78 mg/dL (70-110)
[2024-12-12 21:43] LABS: Glucose,Whole Blood 121 mg/dL (70-110)
[2024-12-12 23:34] VITALS: TEMP 98.2
[2024-12-13 06:07] LABS: Glucose,Whole Blood 157 mg/dL (70-110)
[2024-12-13 07:49] LABS: African American GFR (CKD) 70 (>60 ml/min/1.73 sqM); Anion Gap 11 mmol/L; Blood Urea Nitrogen 49 mg/dL (7-17); Calcium 10.0 mg/dL (8.4-10.2); Carbon Dioxide 22 mmol/L (22-30); Chloride 103 mmol/L (98-107); Glucose 82 mg/dL (74-99); Magnesium 2.1 mg/dL (1.6-2.3); Non-African American GFR(CKD) 61 (>60 ml/min/1.73 sqM); Potassium 4.6 mmol/L (3.5-5.1); Sodium 136 mmol/L (137-145)
--- NOTE | 2024-12-13 08:55 | P.PN ---
Subjective Progress Note Date: 12/12/24 84-year-old female sent from [facility] for increased bruising on left side. Patient is a poor historian and says she fell last week but is unsure how. She cannot specifically remember any falls or injuries. She is complaining of left shoulder pain however is unsure when this started. Denies chest pain, shortness of breath, abdominal pain, headache, vision changes. She is on thinners. She was recently admitted approximately 2 weeks ago for weakness and multiple falls at which time she was placed at [facility]. Patient has a history remarkable for atrial fibrillation, CVA, diabetes mellitus, hypertension, hyperlipidemia. In the ED heart rate is found to be in the 40s however patient is asymptomatic. Blood pressure 129/82. On physical examination there is diffuse left-sided bruising. Neurovascularly intact to all extremities. -Left shoulder x-ray reveals questionable anterior dislocation of the humeral head relative the glenoid. -CT chest/abdomen/pelvis reveals no acute traumatic process. CT brain and C- spine reveals no acute process. In the ED conscious sedation performed for closed reduction, postreduction x- rays revealed improved anatomical alignment. Patient was placed in a sling. Patient will be admitted to medicine for bradycardia with cardiology consult. 12/03 This is a pleasant 84 years old female who presents from [place] for increased bruise on the left side. There is reports of falling last week with left shoulder pain. Also patient was found to have heart rate in 40s Patient close reduction of her left anterior dislocated shoulder, she still have some pain tenderness and deformity in her left shoulders with limitation of movement therefore we are going to consult orthopedic team Patient heart rate in 40s and low 50s, currently asymptomatic no chest pain dyspnea or dizziness. She was on metoprolol 25 mg 3 times daily which is currently on hold Repeat shoulder x-ray yesterday showing close reduction of the shoulder pretty well CT of the head and neck showing no acute process and CT of the chest abdominal pelvis showing cardiomegaly small bilateral pleural effusion with no acute abnormality. I reviewed the images by myself and agree. Cardiology following closely. We are going to consult orthopedic team 12/04 Patient heart rate is improved and currently in 60s, patient with no symptom cardiology following closely Patient still complaining from her left shoulder pain which is looks somewhat controlled, movement little better less deformity her sling is in place We are pending for orthopedic evaluation who saw the patient later on today and recommended hip and pelvic x-ray showing bilateral osteoarthritis of the hips but it is mild associated with no displaced fractures. Patient also complains from extensive bruise in her left breast and left chest down to the abdomen secondary to her shoulder problem We may hold 1 or 2 doses of Eliquis. Also patient on aspirin 81 mg Hemoglobin A1c is 8.8, patient is on Lantus 28 units. Patient cannot tolerate metformin because of GI symptom. Patient would be benefit from outpatient follow-up with barber stylist. 12/05 Patient clinically doing well and is improving Her main complaint is her left shoulder. Denies any other new complaint no chest pain dyspnea or dizziness Heart rate is improved in 60s after holding metoprolol and currently patient is asymptomatic regarding this Cardiology signed off the case Orthopedic team evaluated the patient and cleared her for discharge with recommendation for close outpatient follow-up in 1 to 2 weeks But time she was not clear it was late for the patient to go back to her [facility]. Possible discharge tomorrow morning Resume Eliquis tomorrow morning Her glucose was on the low side we lowered the dose of Lantus 28 units down to 25 units with close monitoring. Glucose gel as needed for hypoglycemia 12/06 This morning I was paged by the nurse that patient is becoming more bradycardic and heart rate dropped to 30s, cardiology team reconsulted. Hyoscyamine was added Patient is more sleepy today Currently blood pressure 179/81. Patient is afebrile. Sugar was on the low side 68 136, 59 and 81. We will give her one-time dose of D50 percent Repeat all labs today including ammonia levels venous blood gas. Check uri nalysis and urine culture. Will repeat CT of the brain Daughter at bedside I discussed the plan with her. She verbalized understanding acceptance Continue with aspirin and Plavix. Continue with hyoscyamine added by cardiology team Continue with blood pressure medications close monitoring 12/06 I came blending supervisor to see the patient she was more obtained none waking up for tactile or verbal stimuli, she mumbles only does not open her eyes or follow command does not answer questions. She just sleeps in the bed, daughter at bedside, CT of the brain ordered stat which came back negative for acute process. Also we did extensive workup including blood test CBC BMP LFT With sodium 132, potassium 5.3 BUN 34 creatinine 0.9, lactic acid 0.8 Urinalysis normal. Bilirubin 1.5, liver enzymes very mildly elevated. Procalcitonin is negative less than 0.20. Bladder scan showing bladder retention more than 500 cc and Guerra catheter was placed. Her blood pressure was mildly elevated with systolic 1 7180 improved to 1 1:30 pill of oral hydralazine 25 mg and now stable. As sugar was noticed low in the morning she was given dextrose 50 ampoule x 1, her sugar improved to 120s and her mentation improved, I can see her again now she is awake answers my questions complaining from pain in her upper back and headache but she looks calm not in distress. She has some mild bruise behind her ear but no overt bruising new, she still has extensive bruise in her left breast left side of the chest down to the left side of the abdomen. Patient remains on aspirin started by cardiology on Eliquis 5 m g. On checking her in the evening she was still doing well She has hypothermia and started on Luis hugger Plan of care discussed with the patient daughter and she is agreeable. 12/07 Patient mentation is back to normal today, fully awake and oriented at baseline and this is confirmed by the daughter at bedside which have the same impression Patient main complaint in her left shoulder pain, patient thinks is still dislocated and she was requesting herself to repeat the shoulder x-ray which showed persistent subluxation/dislocation of the left shoulder and a new minimally displaced left humeral head fracture. This information was discussed with orthopedic team with Dr. Daly who informed staff no need for any surgical intervention and continue monitoring. Patient using the sling when she is up from bed as instructed Patient delirium yesterday was thought secondary to multifactorial for example urinary retention status post Guerra catheter but the main culprit thought was the hypoglycemia, initially she was on Lantus 28 units we have to drop it down gradually to 25 units and yesterday down to 20 units and despite that this morning her glucose was still on the low side at 50s indicating that probably patient problems were due to hypoglycemia as well, we lowered the Lantus tonight to 15 units with close monitoring Our cardiology team recommended to continue hyoscyamine and follow-up outpatient with Dr. Gongora. Discontinue atenolol upon discharge and the sign of the case 12/08 Patient today fully awake and oriented, she is mainly complaining some pain in her left shoulder, does not look dislocated Patient was evaluated by orthopedic team and recommended no surgical interven tion as she is high risk for risk and poor surgical candidate She is afraid she will not be independent like before. 12/09 Patient today feels much better She still have some pain in her left shoulder at the fracture and dislocation/relocation site, bruise improving patient resumed her Eliquis and aspirin Patient able to use her left upper extremity to certain degree. Orthopedic team recommended no surgical intervention and patient is agreeable with this recommendation Previously was independent with plan to go to rehab Guerra catheter in place for acute urinary retention Sugar improved after we lowered her insulin to 15 units almost half of her home dose However sodium trending down to 123 today. We discontinued Lasix 10 mg daily also we will put the patient on a fluid restriction and consult nephrology team 12/10/2024 Patient is seen in follow-up continues to be confused and continues with indwelling Guerra catheter for retention. Patient is asleep and minimally arousable and falls asleep easily. Patient sodium is 124 today and IV Lasix has been discontinued. Patient is being followed by nephrology and will discuss with them regarding treatment plan moving forward. Continue monitoring Accu- Cheks AC and at bedtime 12/11/2024 Patient is seen in follow-up today continues to be confused with concerns of hospital-acquired delirium recommend opening the shades and frequent reorientation. Patient continues with low sodium and nephrology consulted m aintained on urea and recommends fluid restrictions. Patient to continue with indwelling Guerra catheter for now as patient was retaining and may need trial of void once more mobile. Encouraged increase activity as tolerated and need updated PT/OT therapy evaluation and is for patient to go to [facility]. Will follow-up on repeat labs and discuss with nephrology regarding discharge planning if sodium is improved. 12/12/2024 Patient is seen in follow-up today and is lethargic and sleeping. Per nursing staff patient did receive 25 mg of Seroquel last night and has been extremely lethargic. Patient will be going to [facility] on discharge and awaiting insurance authorization. Patient with hyponatremia although sodium is improved at 131 today with nephrology following will continue current regimen and also discontinue lisinopril as blood pressure is on the lower side. Recommend follow-up labs in the a.m. Will need updated PT/OT therapy notes for discharge planning. Case management reports patient will need insurance authorization on discharge. Patient is currently afebrile and will possibly discuss discharge planning in the next 24 to 48 hours. Review of systems: Unable to completely assess as patient is lethargic All medications have been reviewed Physical exam: GENERAL: The patient is alert and remains sleepy , lethargic, somewhat arousable but falls asleep easily not in any acute distress. Well developed, ill- appearing, elderly appearing. Morbidly obese HEENT: Pupils are round and equally reacting to light. EOMI. No scleral icterus. No conjunctival pallor. Normocephalic, atraumatic. No pharyngeal erythema. No thyromegaly. CARDIOVASCULAR: S1 and S2 muffled PULMONARY: Diminished breath sounds bilaterally otherwise chest is clear to auscultation, no wheezing , no crackles. ABDOMEN: Soft, obese, nontender, nondistended, normoactive bowel sounds. No palpable organomegaly. MUSCULOSKELETAL: No joint swelling or deformity. EXTREMITIES: No cyanosis, clubbing, or pedal edema. Left shoulder prominent and tender patient cannot raise her left arm above her head NEUROLOGICAL: Gross neurological examination did not reveal any focal deficits. Diffusely weak SKIN: No rashes. no petechiae. Assessment: -Fall with left shoulder pain. Repeat shoulder x-ray showing persistent dislocation/subluxation of the humeral head relative to the glenoid and minimally displaced acute left humeral head fracture status post closed reduction in the ER with x-ray imagings revealing improved anatomical alignment -Symptomatic bradycardia; patient is currently on Tenormin which is being held -Hyperkalemia; currently not on any supplement; possibly associated with DESIRAE inhibitor use; will monitor. Continue low potassium diet -Elevated liver enzymes - Total bilirubin elevated at 1.5 with mild elevation of AST/ALT; monitor enzymes -Hypertension; continue home dose of Norvasc 10 mg daily; hold atenolol; lisinopril being held - Diabetes mellitus, with hypoglycemia with long-term insulin use; continue home dose of Lantus 28 units SQ nightly; monitor Accu-Cheks q. CHS with insulin sliding scale - Lower Lantus to 15 units - Depression history - Metabolic encephalopathy versus altered mental status. Multifactorial likely metabolic/toxic encephalopathy along with a component of hospital-acquired delirium and sleep deprivation - Acute urinary retention status post Guerra catheter. Continue Flomax. Urinalysis is benign - Hyponatremia, sodium 126. Nephrology following. And sodium is improved at 131 today GI prophylaxis DVT prophylaxis; SCDs/Eliquis CODE STATUS; no code Plan: Patient was on IV Lasix which was discontinued as patient continues to have significant hyponatremia, 131 today and nephrology following and will continue with fluid restrictions and holding lisinopril recommend follow-up labs in the morning Continue indwelling Guerra catheter and may trial void once more mobile outpatient Recommend PT/OT therapy evaluation as plan will be for patient to go to [facility] on discharge. Will need updated PT/OT therapy notes May use Seroquel at night as needed for agitation and insomnia, will reduce the dose to 12.5 mg as needed as patient took 25 mg and was extremely lethargic Recommend frequent reorientation during the day Orthopedics has evaluated the patient recommending conservative management with no plans of surgical intervention at this time, recommend to continue with sling Will discuss with case management regarding discharge planning to [facility]. Patient will require insurance authorization with possible discharge planning in the next 24 to 48 hours Due to multiple complex medical issues, overall prognosis is guarded The impression and plan of care has been dictated by Jeanette Serrano, Nurse Practitioner as directed. Dr. Mono MD I have performed a history and examination and MDM of this patient, discussed the same with the dictator, and agree with the dictator's assessment and plan as written ,documented as a scribe. Based on total visit time, I have performed more than 50% of the visit. Objective - Vital Signs Vital signs: Vital Signs Temp 97.4 F L 12/12/24 08:00 Pulse 55 L 12/12/24 16:00 Resp 16 12/12/24 16:00 BP 93/53 12/12/24 16:00 Pulse Ox 93 L 12/12/24 16:00 FiO2 Intake & Output 12/11/24 12/12/24 12/12/24 18:59 06:59 18:59 Intake Total 280 10 Output Total 1000 1050 600 Balance -720 -1040 -600 Weight 96.4 kg Intake: IV 20 10 Invasive Line 4 20 Invasive Line 5 10 Oral 260 Output: Urine 1000 1050 600 Other: Voiding Method Indwelling Catheter Indwelling Catheter Indwelling Catheter - Labs CBC & Chem 7: 12/12/24 07:14 12/13/24 06:48 Labs: Abnormal Lab Results - Last 24 Hours (Table) 12/11/24 12/12/24 12/12/24 Range/Units 20:19 06:14 06:48 RBC (4.10-5.20) 10*6/uL Hgb (12.0-15.0) g/dL Hct (37.2-46.3) % Immature Gran # (0.00-0.04) 10*3/uL Monocytes # (0.20-1.00) 10*3/uL Eosinophils # (0.04-0.35) 10*3/uL Sodium (137-145) mmol/L BUN (7-17) mg/dL POC Glucose (mg/dL) 197 H 65 L 123 H (70-110) mg/dL AST (14-36) U/L Total Protein (6.3-8.2) g/dL Albumin (3.5-5.0) g/dL 12/12/24 12/12/24 12/12/24 Range/Units 07:14 07:14 16:32 RBC 3.27 L (4.10-5.20) 10*6/uL Hgb 10.1 L (12.0-15.0) g/dL Hct 29.8 L (37.2-46.3) % Immature Gran # 0.08 H (0.00-0.04) 10*3/uL Monocytes # 1.28 H (0.20-1.00) 10*3/uL Eosinophils # 0.48 H (0.04-0.35) 10*3/uL Sodium 131 L (137-145) mmol/L BUN 60 H (7-17) mg/dL POC Glucose (mg/dL) 69 L (70-110) mg/dL AST 59 H (14-36) U/L Total Protein 5.0 L (6.3-8.2) g/dL Albumin 2.8 L (3.5-5.0) g/dL
[2024-12-13 09:48] VITALS: RESP 16
--- NOTE | 2024-12-13 10:18 | P.PN ---
Subjective Patient is seen in follow-up for hyponatremia. Sodium level improved to 136. Resting in bed. Mentation better. Nonoliguric. Vital signs are stable. General: No acute distress. HEENT: Head exam is unremarkable. LUNGS: No audible rhonchi or wheezes. HEART: Rate and Rhythm are regular. ABDOMEN: Nontender. EXTREMITITES: No edema. Objective - Vital Signs Vital signs: Vital Signs Temp 98.2 F 12/12/24 23:33 Pulse 64 12/13/24 08:00 Resp 16 12/13/24 08:00 BP 117/61 12/13/24 08:00 Pulse Ox 99 12/13/24 08:00 FiO2 Intake & Output 12/12/24 12/13/24 12/13/24 18:59 06:59 18:59 Output Total 600 Balance -600 Output: Urine 600 Other: Voiding Method Indwelling Catheter Indwelling Catheter - Labs CBC & Chem 7: 12/12/24 07:14 12/13/24 06:48 Labs: Abnormal Lab Results - Last 24 Hours (Table) 12/12/24 12/12/24 12/12/24 Range/Units 07:14 16:32 21:42 Monocytes # 1.28 H (0.20-1.00) 10*3/uL Eosinophils # 0.48 H (0.04-0.35) 10*3/uL Sodium (137-145) mmol/L BUN (7-17) mg/dL POC Glucose (mg/dL) 69 L 121 H (70-110) mg/dL 12/13/24 12/13/24 Range/Units 06:06 06:48 Monocytes # (0.20-1.00) 10*3/uL Eosinophils # (0.04-0.35) 10*3/uL Sodium 136 L (137-145) mmol/L BUN 49 H (7-17) mg/dL POC Glucose (mg/dL) 157 H (70-110) mg/dL Assessment and Plan Plan: Assessment: 1. Hyponatremia. Appears euvolemic at this time. TSH normal. Cortisol level not low. Serum osmolality 273. Sodium level improved to 136 today. 2. Recurrent falls. 3. Left shoulder dislocation with concern for rotator cuff tear being followed by orthopedic surgery. 4. Benign hypertension. Blood pressure on the lower end. 5. Diabetes mellitus. Plan: Maintain fluid restriction. Stop urea. Encouraged oral intake. Stop pedlisinopril as blood pressure is on the lower end. Blood glucose control. Repeat labs in the morning.
[2024-12-13 11:25] LABS: Glucose,Whole Blood 152 mg/dL (70-110)
[2024-12-13 15:45] VITALS: BP 128/79; PULSE 75
--- NOTE | 2024-12-13 16:21 | P.DS ---
Providers Date of admission: 12/01/24 23:24 Expected date of discharge: 12/13/24 Attending physician: Chandan Farooq MD Consults: 12/03/24 08:55 Consult Physician Routine Consulting Provider: Yuniel Daly Consult Reason/Comments: left shoulder tenderness with limitation of movement Do you want consulting provider notified?: Yes 12/09/24 16:23 Consult Physician Routine Consulting Provider: Mya Adhikari Consult Reason/Comments: hyponatremia Do you want consulting provider notified?: Yes Primary care physician: Emerson Christensen Hospital Course: Final diagnosis -Fall with left shoulder pain. Repeat shoulder x-ray showing persistent dislocation/subluxation of the humeral head relative to the glenoid and minimally displaced acute left humeral head fracture status post closed reduction in the ER with x-ray imagings revealing improved anatomical alignment -Symptomatic bradycardia; patient is currently on Tenormin which is being held -Hyperkalemia; currently not on any supplement; possibly associated with DESIRAE inhibitor use; will monitor. Continue low potassium diet -Elevated liver enzymes - Total bilirubin elevated at 1.5 with mild elevation of AST/ALT; monitor enzymes -Hypertension; continue home dose of Norvasc 10 mg daily; hold atenolol; lisinopril being held - Diabetes mellitus, with hypoglycemia with long-term insulin use; continue home dose of Lantus 28 units SQ nightly; monitor Accu-Cheks q. CHS with insulin sliding scale - Lower Lantus to 15 units - Depression history - Metabolic encephalopathy versus altered mental status. Multifactorial likely metabolic/toxic encephalopathy along with a component of hospital-acquired delirium and sleep deprivation - Acute urinary retention status post Guerra catheter. Continue Flomax. Urin alysis is benign - Hyponatremia, sodium 126. Nephrology following. And sodium is improved at 131 today Discharge disposition Patient is being discharged in a stable condition with guarded prognosis to [facility]. Patient will follow-up with Dr. Christensen in the outpatient setting upon discharge. Patient is to continue with current medications and close outpatient follow-up with cardiology, orthopedics, and nephrology as scheduled. Total time taken is greater than 35 minutes. Hospital course This is a 84-year-old female who was recently admitted with severe left shoulder pain secondary to a fall and underwent reduction in the ER with revealing improved anatomical alignment on imaging. Patient also noted to have significant bradycardia likely secondary to beta-steven which is being held along with acute urinary retention and is status post indwelling Guerra catheter. Patient also noted to be with multiple electrolyte abnormalities including elevated potassium and low sodium. Sodium is improved at 132 today and recommend outpatient follow-up with nephrology and repeat labs of CBC, CMP, magnesium in 2 to 3 days. Patient is continued on Flomax and will continue and recommend trial of voiding once patient is more mobile. Patient was evaluated by orthopedics with no plans of surgical intervention recommending outpatient follow-up and continue with sling and physical therapy on discharge. Patient to follow-up with cardiology in the outpatient setting as well. Please refer to consultation notes for further HPI. Currently no reports of chest pain, shortness of breath, or palpitations. Patient is afebrile. No reports of nausea or vomiting and patient is tolerating diet. Patient will be going to [facility] today. Overall guarded prognosis and high risk for readmissions given significant comorbidities. Patient is no code Physical exam: Gen: This is a 84-year-old female who is awake, alert and oriented x 2, baseline, well-developed, elderly appearing, obese HEENT: Head is atraumatic, normocephalic. Pupils equal, round. Sclerae is anicteric. NECK: Supple. No JVD. No lymphadenopathy. No thyromegaly. LUNGS: Diminished breath sounds bilaterally otherwise clear to auscultation. No wheezes or rhonchi. No intercostal retractions. HEART: S1, S2 are muffled ABDOMEN: Soft. Obese. Bowel sounds are present. No masses. No tenderness. EXTREMITIES: No pedal edema. No calf tenderness. Left shoulder pain on palpation, sling noted NEUROLOGICAL: Patient is awake, alert and oriented x2. Cranial nerves 2 through 12 are grossly intact. Diffusely weak Please refer to medication reconciliation sheet for a list of medications. The impression and plan of care has been dictated by Jeanette Serrano, Nurse Practitioner as directed. Dr. Mono MD I have performed a history and examination and MDM of this patient, discussed the same with the dictator, and agree with the dictator's assessment and plan as written ,documented as a scribe. Based on total visit time, I have performed more than 50% of the visit. Plan - Discharge Summary Discharge Rx Participant: No New Discharge Prescriptions: New QUEtiapine [SEROquel] 12.5 mg PO HS PRN tab PRN Reason: Insomnia Tamsulosin [Flomax] 0.4 mg PO PC-SUPPER cap Hyoscyamine Sulfate [Levbid] 0.375 mg PO BID tab Melatonin 3 mg PO HS PRN tab PRN Reason: Insomnia Continue Aspirin [Adult Low Dose Aspirin EC] 81 mg PO HS@2100 amLODIPine [Norvasc] 10 mg PO DAILY@1200 Acetaminophen Tab [Tylenol] 500 - 1,000 mg PO Q8H PRN PRN Reason: Pain bisacodyL [Dulcolax] 10 mg RECTAL DAILY PRN PRN Reason: Constipation Magnesium Hydroxide [Milk of Magnesia Concentrate] 7,200 mg PO DAILY PRN PRN Reason: Constipation Apixaban [Eliquis] 5 mg PO BID@0800,1700 Torsemide [Demadex] 5 mg PO DAILY@1200 Na Phos,M-B/Na Phos,Di-Ba [Fleet Adult] 133 ml RECTAL DAILY PRN PRN Reason: Constipation Acetaminophen Tab [Tylenol] 650 mg PO Q6HR PRN PRN Reason: Fever And/ Or Pain INSULIN LISPRO (HumaLOG) [HumaLOG] See Protocol SQ ACHS Nystatin 100,000 Unit/gm Powd [Mycostatin Powder] 1 applic TOPICAL BID Pantoprazole [Protonix] 40 mg PO DAILY@0700 Insulin Glargine (Lantus) [Lantus Vial] 28 unit SQ HS@2100 Discontinued atenoloL [Tenormin] 50 mg PO BID@0800,1700 Sertraline [Zoloft] 25 mg PO DAILY@0800 lisinopriL [Zestril] 10 mg PO DAILY@1200 Discharge Medication List Aspirin [Adult Low Dose Aspirin EC] 81 mg PO HS@2100 09/15/17 [History] Torsemide [Demadex] 5 mg PO DAILY@1200 11/14/24 [History] amLODIPine [Norvasc] 10 mg PO DAILY@1200 11/14/24 [History] Acetaminophen Tab [Tylenol] 500 - 1,000 mg PO Q8H PRN 12/02/24 [History] Acetaminophen Tab [Tylenol] 650 mg PO Q6HR PRN 12/02/24 [History] Apixaban [Eliquis] 5 mg PO BID@0800,1700 12/02/24 [History] INSULIN LISPRO (HumaLOG) [HumaLOG] See Protocol SQ ACHS 12/02/24 [History] Insulin Glargine (Lantus) [Lantus Vial] 28 unit SQ HS@2100 12/02/24 [History] Magnesium Hydroxide [Milk of Magnesia Concentrate] 7,200 mg PO DAILY PRN 12/02/24 [History] Na Phos,M-B/Na Phos,Di-Ba [Fleet Adult] 133 ml RECTAL DAILY PRN 12/02/24 [History] Nystatin 100,000 Unit/gm Powd [Mycostatin Powder] 1 applic TOPICAL BID 12/02/24 [History] Pantoprazole [Protonix] 40 mg PO DAILY@0700 12/02/24 [History] bisacodyL [Dulcolax] 10 mg RECTAL DAILY PRN 12/02/24 [History] Hyoscyamine Sulfate [Levbid] 0.375 mg PO BID tab 12/13/24 [Rx] Melatonin 3 mg PO HS PRN tab 12/13/24 [Rx] QUEtiapine [SEROquel] 12.5 mg PO HS PRN tab 12/13/24 [Rx] Tamsulosin [Flomax] 0.4 mg PO PC-SUPPER cap 12/13/24 [Rx] Follow up Appointment(s)/Referral(s): Mykel Gnogora MD [Medical Doctor] - 1 Week Emerson Christensen MD [Primary Care Provider] - 1-2 days Yuniel Daly MD [Medical Doctor] - 2 Weeks Activity/Diet/Wound Care/Special Instructions: Left upper extremity: Nonweightbearing of the left upper extremity. Use sling for comfort. May remove while resting in chair or bed for comfort. Patient going to [facility] as tolerated follow-up with Orthopedics outpatient Follow-up with cardiology outpatient Continue taking medications as prescribed Use Seroquel cautiously as it makes her extremely lethargic and would use as as needed and at night for agitation Continue heart healthy dysphagia chopped diet with fluid restrictions of 1200 mL daily and renal low potassium diet Continue monitoring Accu-Cheks AC and at bedtime NovoLog sliding scale 0-150 equals 0 units 151-200 equals 2 units 201-250 equals 4 units 251-300 equals 6 units 301-350 equals 8 units 351-400 equals 10 units Please notify provider if blood sugar is 400 or above Discharge Disposition: TRANSFER TO SNF/ECF
[2024-12-13 16:46] LABS: Glucose,Whole Blood 218 mg/dL (70-110)
== END 2024-12-13 17:40 | DRG 308 ==
LOC: EC 20:05 → 3SCARD 23:24
PROVIDERS: ADMIT Internal Medicine; ATTEND Internal Medicine
PROC: 0PSDXZZ Reposition Left Humeral Head, External Approach (ICD-10-PCS; principal; 2024-12-01)
DX: R00.1 Bradycardia, unspecified (principal); G92.8 Other toxic encephalopathy; S42.292A Other displaced fracture of upper end of left humerus, initial encounter for closed fracture; F05 Delirium due to known physiological condition; E87.1 Hypo-osmolality and hyponatremia; E11.649 Type 2 diabetes mellitus with hypoglycemia without coma; E66.01 Morbid (severe) obesity due to excess calories; F32.A Depression, unspecified; I10 Essential (primary) hypertension; I48.0 Paroxysmal atrial fibrillation; Z79.4 Long term (current) use of insulin; E11.42 Type 2 diabetes mellitus with diabetic polyneuropathy; E87.5 Hyperkalemia; W19.XXXA Unspecified fall, initial encounter; E78.5 Hyperlipidemia, unspecified; M24.412 Recurrent dislocation, left shoulder; M75.100 Unspecified rotator cuff tear or rupture of unspecified shoulder, not specified as traumatic; R74.01 Elevation of levels of liver transaminase levels; R29.6 Repeated falls; Z68.36 Body mass index [BMI] 36.0-36.9, adult; Z72.820 Sleep deprivation; Z79.01 Long term (current) use of anticoagulants; Z79.82 Long term (current) use of aspirin; Z79.899 Other long term (current) drug therapy; Z85.3 Personal history of malignant neoplasm of breast; Z86.73 Personal history of transient ischemic attack (TIA), and cerebral infarction without residual deficits; Z87.891 Personal history of nicotine dependence; Z91.81 History of falling; Z90.11 Acquired absence of right breast and nipple; Z88.5 Allergy status to narcotic agent; Z88.2 Allergy status to sulfonamides; Z88.8 Allergy status to other drugs, medicaments and biological substances
CPT/HCPCS: 23650; 36415; 70450; 71250; 72125; 72170; 73502; 74176; 80048; 80053; 80061; 80076; 81003; 82140; 82533; 82550; 82803; 83036; 83605; 83735; 83874; 83880; 83930; 83935; 84145; 84300; 84443; 84484; 85025; 85027; 85610; 85730; 93005; 99285